=== PATIENT | female | born 1960 | race Caucasian/White ===

== ENCOUNTER → 2017-02-05 | Outpatient (CLI) | payer OTHER ==
[~2017-02-05] MED LIST: CPR/500 PO; NAPR1TAB9 PO
--- NOTE | 2017-02-05 10:17 | DIAGNOSTIC IMAGING REPORT ---
RIGHT HAND MIN 3 VIEWS ROUTINE CLINICAL HISTORY: Chronic right hand pain COMPARISON: None. DISCUSSION: The bones are osteopenic. No acute fractures are visualized. There are no erosive or destructive changes. IMPRESSION: Osteopenia. No fractures identified. Electronically signed by: Nadir Ku M.D. 02/05/2017 10:16 AM Dictated Date/Time: 02/05/2017 10:15 AM
== END | disposition home or self-care (01) ==
LOC: C.RAD1850 10:05
PROVIDERS: ATTEND Nurse Practitioner Family
DX: R22.31 Localized swelling, mass and lump, right upper limb (principal); M85.841 Other specified disorders of bone density and structure, right hand

== ENCOUNTER → 2017-05-31 | Outpatient (CLI) | payer OTHER ==
[~2017-05-31] MED LIST changes: -CPR/500 PO
== END | disposition home or self-care (01) ==
LOC: C.LABMFLN 08:56
PROVIDERS: ATTEND Family Medicine
DX: R10.30 Lower abdominal pain, unspecified (principal)

== ENCOUNTER 2017-06-05 19:51 | Emergency (ER) | payer OTHER ==
[~2017-06-05] VITALS: Ht 166.4 cm; Wt 57.2 kg
[~2017-06-05 19:51] MED LIST changes: -CPR/500 PO; -OPTIRAY 320 IV PRN
[2017-06-05 19:55] VITALS: Ht 166.4 cm; Wt 57.2 kg
[2017-06-05 21:08] LABS: BASO % 0.2 %; BASO ABS # 0.02 K/uL (0-0.2); COMPLETE YES; EOS % 0.4 %; HEMATOCRIT 38.3 % (37-47); IG% 0.3 %; LYMPH % 19.3 %; LYMPH ABS # 2.04 K/uL (1.2-3.4); MEAN CELL VOLUME 94.3 fL (80-100); MEAN CORPUSCULAR HEMOGLOBIN 32.5 pg (25-34); MEAN CORPUSCULAR HGB CONC 34.5 g/dl (32-36); MEAN PLATELET VOLUME 8.8 fL (7.4-10.4); MONO % 8.8 %; PLATELET COUNT 202 K/uL (130-400); RED BLOOD COUNT 4.06 M/uL (4.2-5.4); WHITE BLOOD COUNT 10.58 K/uL (4.8-10.8)
--- NOTE | 2017-06-05 21:09 | EMERGENCY ROOM VISIT NOTE ---
History Report prepared by Elian: Ai Mcdonald Under the Supervision of: Dr. Clarence Rivera M.D. First contact with patient: 20:29 Chief Complaint: GI ASSESSMENT Stated Complaint: ABD PAIN, INTESTING LEAKING INTO BLADDER Nursing Triage Summary: sent by PCP for +CT here today divertic with abcess, probable fistula History of Present Illness The patient is a 56 year old female who presents to the Emergency Room with complaints of persistent abdominal pain starting 2 weeks ago. She had a CT at her PCP today. She was sent to the ED after the CT showed diverticulitis with abscess. She was told that she might require surgery. She has had abdominal pain with urinating and fever over the past 2 weeks. She has a history of diverticulitis. Source of History: patient Onset: 2 weeks ago Position: abdomen Quality: other (pain) Timing: other (persistent) Associated Symptoms: + fevers Review of Systems See HPI for pertinent positives & negatives. A total of 10 systems reviewed and were otherwise negative. Past Medical & Surgical Medical Problems: (1) Diverticulitis (2) Diverticulosis (3) No Known Active Medical Problems Surgical Problems: (1) S/P tonsillectomy Family History Cancer Hypertension Social History Smoking Status: Former Smoker Alcohol Use: occasionally Marital Status: Housing Status: lives with significant other Occupation Status: employed Current/Historical Medications Scheduled Ciprofloxacin (Ciprofloxacin HCl), 500 MG PO BID Allergies Coded Allergies: No Known Allergies (Unverified , 02/19/16) Physical Exam Vital Signs Date Time Temp Pulse Resp B/P (MAP) Pulse Ox O2 Delivery O2 Flow Rate FiO2 06/05/17 23:29 06/05/17 23:29 06/05/17 22:51 36.9 81 18 101/70 96 Room Air 06/05/17 21:58 36.9 81 18 118/75 96 Room Air 06/05/17 20:59 81 06/05/17 20:58 36.9 77 18 122/77 98 Room Air 06/05/17 19:55 36.9 91 18 130/91 95 Room Air Physical Exam GENERAL: Patient is a healthy-appearing well-nourished female. HEAD: Normocephalic atraumatic EYES: Ocular movements intact pupils equal and react to light OROPHARYNX mucous membranes are moist no exudates present no erythema or edema present NECK: Supple no nuchal rigidity CHEST: Good equal expansion LUNGS: Clear and equal to auscultation CARDIAC: Normal S1 and S2 ABDOMEN: Soft nontender no guarding BACK: No CVA tenderness EXTREMITIES: No pain upon palpation normal muscle strength in all groups no clubbing cyanosis or edema NEURO: Patient is following commands and answering questions appropriately. Alert and oriented x3 Cranial Nerves 2-12 grossly intact Medical Decision & Procedures Laboratory Results 06/05/17 20:45 Red Blood Count 4.06, Mean Corpuscular Volume 94.3, Mean Corpuscular Hemoglobin 32.5, Mean Corpuscular Hemoglobin Concent 34.5, Mean Platelet Volume 8.8, Neutrophils (%) (Auto) 71.0, Lymphocytes (%) (Auto) 19.3, Monocytes (%) (Auto) 8.8, Eosinophils (%) (Auto) 0.4, Basophils (%) (Auto) 0.2, Neutrophils # (Auto) 7.52, Lymphocytes # (Auto) 2.04, Monocytes # (Auto) 0.93, Eosinophils # (Auto) 0.04, Basophils # (Auto) 0.02 06/05/17 20:45 Test 06/05/17 20:45 06/05/17 21:40 White Blood Count 10.58 K/uL (4.8-10.8) Red Blood Count 4.06 M/uL (4.2-5.4) Hemoglobin 13.2 g/dL (12.0-16.0) Hematocrit 38.3 % (37-47) Mean Corpuscular Volume 94.3 fL (80-100) Mean Corpuscular Hemoglobin 32.5 pg (25-34) Mean Corpuscular Hemoglobin Concent 34.5 g/dl (32-36) Platelet Count 202 K/uL (130-400) Mean Platelet Volume 8.8 fL (7.4-10.4) Neutrophils (%) (Auto) 71.0 % Lymphocytes (%) (Auto) 19.3 % Monocytes (%) (Auto) 8.8 % Eosinophils (%) (Auto) 0.4 % Basophils (%) (Auto) 0.2 % Neutrophils # (Auto) 7.52 K/uL (1.4-6.5) Lymphocytes # (Auto) 2.04 K/uL (1.2-3.4) Monocytes # (Auto) 0.93 K/uL (0.11-0.59) Eosinophils # (Auto) 0.04 K/uL (0-0.5) Basophils # (Auto) 0.02 K/uL (0-0.2) RDW Standard Deviation 41.3 fL (36.4-46.3) RDW Coefficient of Variation 12.0 % (11.5-14.5) Immature Granulocyte % (Auto) 0.3 % Immature Granulocyte # (Auto) 0.03 K/uL (0.00-0.02) Anion Gap 9.0 mmol/L (3-11) Est Creatinine Clear Calc Drug Dose 112.1 ml/min Estimated GFR () 124.5 Estimated GFR (Non- 107.4 BUN/Creatinine Ratio 10.6 (10-20) Calcium Level 9.2 mg/dl (8.5-10.1) Total Bilirubin 0.3 mg/dl (0.2-1) Direct Bilirubin 0.1 mg/dl (0-0.2) Aspartate Amino Transf (AST/SGOT) 26 U/L (15-37) Alanine Aminotransferase (ALT/SGPT) 28 U/L (12-78) Alkaline Phosphatase 45 U/L (45-117) Total Protein 7.2 gm/dl (6.4-8.2) Albumin 3.5 gm/dl (3.4-5.0) Lipase 118 U/L (73-393) Urine Color YELLOW Urine Appearance CLEAR (CLEAR) Urine pH 6.0 (4.5-7.5) Urine Specific [place] 1.014 (1.000-1.030) Urine Protein NEG (NEG) Urine Glucose (UA) NEG (NEG) Urine Ketones NEG (NEG) Urine Occult Blood 2+ (NEG) Urine Nitrite NEG (NEG) Urine Bilirubin NEG (NEG) Urine Urobilinogen NEG (NEG) Urine Leukocyte Esterase MODERATE (NEG) Urine WBC (Auto) /hpf (0-5) Urine RBC (Auto) /hpf (0-4) Urine Hyaline Casts (Auto) /lpf (0-5) Urine Epithelial Cells (Auto) /lpf (0-5) Urine Bacteria (Auto) (NEG) Urine RBC 10-30 /hpf (0-4) Urine WBC >30 /hpf (0-5) Urine Epithelial Cells 0-5 /lpf (0-5) Urine Renal Epithelial Cells /lpf (0-5) Urine Bacteria NEG (NEG) Urine Hyaline Casts 0 /lpf (0-5) Labs reviewed by ED physician. Medications Administered Medications (Trade) Dose Ordered Sig/Eliseo Route Start Time Stop Time Status Last Admin Dose Admin Piperacillin Sod/ Tazobactam Sod (Zosyn Iv) 4.5 gm NOW STAT IV 06/05/17 21:11 06/05/17 21:13 DC 06/05/17 21:40 4.5 GM Daptomycin 360 mg/ Sodium Chloride 57.2 ml @ 100 mls/hr NOW STAT IV 06/05/17 21:11 06/05/17 21:45 DC 06/05/17 21:40 100 MLS/HR ED Course 2031: Past medical records reviewed. The patient was evaluated in room C2B. A complete history and physical examination was performed. 2033: I discussed the patient's case with Dr. Brush, [facility] general surgery. He recommends the patient be transferred to a tertiary care center. 2047: I reevaluated the patient. I discussed the results and treatment plan with her. She verbalized agreement of the plan. [place] [facility] [place]. 2108: I discussed the patient's case with Dr. Gonzalez, [facility] [place]. He has accepted the patient for transfer. 2110: Daptomycin 360 mg/Sodium Chloride 57.2 ml @ 100 mls/hr IV, Zosyn Iv 4.5 gm IV. Medical Decision Differential diagnosis: Etiologies such as appendicitis, diverticulitis, PUD, biliary pathology, UTI, pancreatitis, obstruction, mesenteric ischemia, aortic pathology, infections, inflammatory bowel disease, renal colic, as well as others were entertained. This is a 56-year-old female that presents to the emergency department after a CAT scan of the abdomen pelvis was concerning for an abscess. I did discuss the case with the on-call surgeon Dr. Brush who took the time to look through the patient's radiographs. He felt that the patient will be better served by interventional radiology service. I did discuss this with the patient and suggested that the patient be transferred to [place] based on her insurance. In addition [facility] is not taking patients. In the meantime an IV was established, the patient does have an elevation in her white blood count cell count. She was given Zosyn and daptomycin. I did discuss the case with Dr. Cross who is on-call in [place] who readily accepted the patient. The patient refused pain medication but she was given an IV fluid bolus as well as Reglan. Medication Reconcilliation Current Medication List: was personally reviewed by me Blood Pressure Screening Patient's blood pressure: Normal blood pressure Blood pressure disposition: Did not require urgent referral Consults Time Called: 2029 Consulting Physician: Dr. Brush, [facility] general surgery Returned Call: 2033 I discussed the patient's case with him. He recommends the patient be transferred to a tertiary care center. Additional Consults: Time Called: 2054 Consulted Physician: Dr. Gonzalez, [facility] [place] Returned Call: [phone] Additional Comments: I discussed the patient's case with him. He has accepted the patient for transfer. Impression Primary Impression: Diverticulitis of intestine with abscess Scribe Attestation The scribe's documentation has been prepared under my direction and personally reviewed by me in its entirety. I confirm that the note above accurately reflects all work, treatment, procedures, and medical decision making performed by me. Departure Information Dispostion Transfer Acute Care Facility Referrals No Doctor, Assigned (PCP) Patient Instructions My [facility] Problem Qualifiers Primary Impression: Diverticulitis of intestine with abscess Diverticulitis site: unspecified part of intestinal tract Diverticulitis bleeding: unspecified bleeding status Qualified Codes: K57.80 - Diverticulitis of intestine, part unspecified, with perforation and abscess without bleeding
[2017-06-05] MEDS ORDERED: DAPTOmycin IV 360 MG in SODIUM CHLORIDE 0.9% 50ML 50 ML IV STA (21:11)
[2017-06-05] MEDS ORDERED: PIPERACILLIN/TAZOBACTAM 4.5 GM/100ML D5W IV STA (21:11)
[2017-06-05 21:25] LABS: BUN/CREATININE RATIO 10.6 (10-20); CALCIUM 9.2 mg/dl (8.5-10.1); CREATININE 0.5 mg/dl (0.60-1.20); POTASSIUM 3.4 mmol/L (3.5-5.1)
[2017-06-05] MEDS ORDERED: CPR/500 PO (21:34)
[2017-06-05 21:58] LABS: URINE APPEARANCE CLEAR (CLEAR); URINE BILIRUBIN NEG (NEG); URINE COLOR YELLOW; URINE NITRITE NEG (NEG); URINE SPECIFIC GRAVITY 1.014 (1.000-1.030); UROBILINOGEN NEG (NEG)
[2017-06-05 21:59] LABS: MANUAL MICROSCOPIC REQUIRED? YES; REVIEW REQ? NO
[2017-06-05 22:07] LABS: URINE BACTERIA NEG (NEG); URINE HYALINE CAST 0 /lpf (0-5); URINE WBC >30 /hpf (0-5)
[2017-06-05 22:51] VITALS: BP_DIAS 70; PULSE 81; TEMP 36.9; O2SAT 96
== END 2017-06-05 23:29 | disposition short-term general hospital (02) ==
LOC: C.EDB 19:53 → C.EDC 23:29
DX: K57.80 Diverticulitis of intestine, part unspecified, with perforation and abscess without bleeding (principal); Z80.9 Family history of malignant neoplasm, unspecified; Z82.49 Family history of ischemic heart disease and other diseases of the circulatory system; Z87.891 Personal history of nicotine dependence

== ENCOUNTER → 2017-06-05 | Outpatient (CLI) | payer OTHER ==
[~2017-06-05] MED LIST changes: +CPR/500 PO; +OPTIRAY 320 IV PRN
--- NOTE | 2017-06-05 17:28 | DIAGNOSTIC IMAGING REPORT ---
ABD/PELVIS COMBO HISTORY: 56 years-old Female R31.29 Hematuria, [id number] microscopic hematuria. Initial exam COMPARISON: CT abdomen and pelvis 02/18/2015 TECHNIQUE: Multiple axial CT images of the abdomen and pelvis were obtained both with and without the use of 94 mL Optiray 320 utilizing hematuria gestational protocol with delayed images. A dose lowering technique was used consistent with the principals of MARCELA. FINDINGS: Lung bases are generally clear. Small right Bochdalek hernia. The imaged inferior cardiac chambers are unremarkable. There are multiple circumscribed low attenuating lesions throughout the liverr, largest of which measures up to 6.7 x 6.0 cm, slightly increased from comparison most compatible with cysts. The spleen, pancreas, gallbladder and right adrenal gland are unremarkable. There is mild nodularity of the left adrenal gland which is unchanged suggesting hyperplasia. Multiple low attenuating lesions of the bilateral kidneys are again seen, most of which are too small to characterize however suggesting cysts which appears similar from comparison study dated 02/18/2015. There is a 4 mm hyperattenuating focus of the interpolar right kidney seen on image 114 of series 3 suggesting a nonobstructing calculus or less likely complexity within a pre-existing renal cyst. Additionally, there is a punctate hyperattenuating focus of the interpolar right kidney seen on image 117 of series 3 which may reflect additional complex cyst or may be artifact. There is a 3 mm nonobstructing calculus of the interpolar left kidney seen on image 122 of series 3. No ureteral calculi or hydronephrosis. Ureters are normal in caliber. There is moderate irregular circumferential wall thickening of the urinary bladder with air noted involving the nondependent urinary bladder lumen. Asymmetric wall thickening near the base of the urinary bladder is noted with irregular enhancement within this distribution. Bilateral collecting systems appear to be within normal limits without focal ureteral or calyceal filling defect. Soft tissue thickening as described below at the base of the left urinary bladder is noted with contrast from the left ureter not definitely emptying within the urinary bladder. There is decreased opacification of the distal left ureter without dilation. There is moderate inflammatory changes with trace free fluid within the pelvis. Marked wall thickening of the mid sigmoid colon is noted with an apparent fluid and air-filled tract extending from the sigmoid colon into the left base of the urinary bladder as seen on images 302 through 336 of series 5 suggesting colovesicular fistula. Additionally, there is a collection along the antimesenteric aspect of the sigmoid colon, 5.6 x 1.8 cm on image 298 of series 5 without lobulated margins suggesting a pericolonic abscess adjacent to the mid sigmoid colon. Colonic diverticula are seen within this distribution. The appendix appears normal. The uterus is unremarkable. Soft tissues are unremarkable. Facet arthropathy is seen within the lower lumbar spine. There is mild convex left curvature of the lumbar spine. IMPRESSION: 1. Extensive inflammatory changes within the pelvis as above with findings suggesting acute diverticulitis with ill-defined pericolonic abscess and colovesicular fistula as above. Surgical consultation recommended. 2. Irregular wall thickening and enhancement involving the left base of the urinary bladder as above is likely secondary to colovesicular fistula. Further evaluation with cystoscopy may be considered. 3. Normal appendix. 4. No bowel obstruction. 5. Multiple hepatic and renal cysts redemonstrated. 6. Bilateral nephrolithiasis without hydronephrosis. The above report was generated using voice recognition software. It may contain grammatical, syntax or spelling errors. Electronically signed by: Chuck Lewis M.D. 06/05/2017 5:27 PM Dictated Date/Time: 06/05/2017 5:09 PM
== END | disposition home or self-care (01) ==
LOC: C.CTS 15:51
PROVIDERS: ATTEND Family Medicine
DX: R31.29 Other microscopic hematuria (principal)

== ENCOUNTER → 2017-06-27 | Outpatient (CLI) | payer OTHER ==
[~2017-06-27] MED LIST changes: +CPR/500 PO; -NAPR1TAB9 PO
== END | disposition home or self-care (01) ==
LOC: C.MAMM 13:51
PROVIDERS: ATTEND Family Medicine
DX: M85.88 Other specified disorders of bone density and structure, other site (principal); M85.851 Other specified disorders of bone density and structure, right thigh; M85.852 Other specified disorders of bone density and structure, left thigh

== ENCOUNTER → 2017-11-12 | Outpatient (CLI) | payer OTHER ==
--- NOTE | 2017-11-12 17:39 | DIAGNOSTIC IMAGING REPORT ---
LUMBAR SPINE 5 VIEWS HISTORY: LUMBOSACRAL PAIN THAT RADIATES COMPARISON: None. FINDINGS: There is no fracture. No subluxation. Minimal levoscoliosis. Suture material at the rectosigmoid junction. The sacrum appears intact. Mild to moderate facet degenerative changes seen within the lower lumbar spine. 3 mm of anterolisthesis of L4 and L5. Mild disc space narrowing at L4-L5. Moderate to space narrowing at L5-S1 with small endplate osteophytes at these levels. IMPRESSION: 1. No fractures within the lumbar spine. 2. Mild to moderate degenerative changes within the lower lumbar spine as described above. 3. Minimal levoscoliosis. 4. Grade I anterolisthesis of L4 on L5. This is likely due to the long-standing degenerative change. Electronically signed by: Prashanth Noriega M.D. 11/12/2017 5:38 PM Dictated Date/Time: 11/12/2017 5:36 PM
== END | disposition home or self-care (01) ==
LOC: C.RADPV 15:56
PROVIDERS: ATTEND Chiropractor
DX: M54.5 Low back pain (principal); M51.36 Other intervertebral disc degeneration, lumbar region; M47.816 Spondylosis without myelopathy or radiculopathy, lumbar region; M43.16 Spondylolisthesis, lumbar region

== ENCOUNTER → 2017-11-15 | Outpatient (CLI) | payer OTHER ==
--- NOTE | 2017-11-15 11:23 | DIAGNOSTIC IMAGING REPORT ---
MRI OF THE LUMBAR SPINE WITHOUT CONTRAST CLINICAL HISTORY: Left lumbar radiculopathy. COMPARISON STUDY: Lumbar spine radiograph November 13, 2007. TECHNIQUE: Utilizing a 1.5 Aiyana magnet and dedicated coil, multiplanar, multiecho imaging of the lumbar spine was performed without IV contrast. FINDINGS: There is 4 mm anterolisthesis of L4 and L5 due to severe facet arthrosis at this level, greater on the left. A few hemangiomas are noted. There is no suspicious marrow replacement. Conus terminates at the upper L1 level. Paravertebral soft tissues are unremarkable. Note is made of innumerable renal cysts as well as multiple hepatic cysts, better depicted on CT of June 05, 2017. There is moderate disc space narrowing at L5-S1 and mild to moderate disc space narrowing at L4-L5. L1-2: The central canal and neural foramen are patent. L2-3: The central canal and neural foramen are patent. L3-4: There is mild disc bulge. There is mild facet arthrosis. Central canal and neural foramen are patent. L4-5: Grade I anterolisthesis. There is severe facet arthrosis. Central canal is patent. Note is made of a 1 x 0.9 cm T2 hyperintense abnormality within the left neural foramen which likely communicates with the left L4-L5 facet joint. This suggests a synovial cyst with mass effect upon the exiting left L4 nerve root. The right neural foramen is mildly narrowed. L5-S1: There is disc space narrowing. There is a disc bulge. Moderate facet arthrosis is noted. Central canal is patent. Note is made of a left lateral disc osteophyte complex with moderate to severe narrowing of the distal left neural foramen. IMPRESSION: 1. 1 cm T2 hyperintense abnormality within the left neural foramen L4-L5 which favors a synovial cyst with mass effect upon the left L4 nerve root. This could be correlated with left L4 radiculopathy. Severe facet arthrosis at this level, greater on the left. 2. Disc bulge with a left far lateral disc osteophyte complex at L5-S1 with moderate to severe narrowing of the distal left neural foramen. 3. No significant central canal stenosis. 4. Grade I anterolisthesis of L4 and L5 likely due to severe facet arthrosis. Electronically signed by: Jose Alejandro Queen M.D. 11/15/2017 11:22 AM Dictated Date/Time: 11/15/2017 11:08 AM
== END | disposition home or self-care (01) ==
LOC: C.MRI 09:50
PROVIDERS: ATTEND Family Medicine
DX: M51.16 Intervertebral disc disorders with radiculopathy, lumbar region (principal); M25.78 Osteophyte, vertebrae

== ENCOUNTER → 2017-12-11 | Outpatient (CLI) | payer OTHER ==
[~2017-12-11] MED LIST changes: -CPR/500 PO; +GABA-112 PO
== END | disposition home or self-care (01) ==
LOC: C.LABMFLN 15:39
PROVIDERS: ATTEND Family Medicine
DX: M25.50 Pain in unspecified joint (principal)

== ENCOUNTER 2021-10-16 07:42 | Inpatient (IN) ==
[2021-10-16] MEDS ORDERED: SODIUM CHLORIDE 0.9% 1000ML 1,000 ML IV STA (07:56)
--- NOTE | 2021-10-16 07:56 | Emergency Department Note ---
History of Present Illness General Chief complaint: Abdominal Pain Stated complaint: SEVERE ABD PAIN GOING INTO LT SIDE Time Seen by Provider: 10/16/21 07:53 Source: patient Mode of arrival: ambulatory Limitations: no limitations History of Present Illness Maximum Pain Intensity: 8 This patient is a 61-year-old female comes in with abdominal pain. She has had a significant work-up recently including MRI of her abdomen. There was mild ductal dilatation with abrupt cut off so she did have an ERCP done by Dr. Yaritza Laboy on 08-31-21 as stents placed at the time. Tissues were obtained did not show any malignancy. He has been having abdominal pain for a month or so it gets worse in the mid day typically. She did eat macaroni and cheese yesterday. Got worse last night. She says is mostly on the left side. She does not have a history of diverticulitis as well. She had no fever she may have had some chi lls at some point. She has had Covid vaccine as well as the booster. No exposure known. She has nausea and vomited about 3-4 times she says she feels dry. No blood or coffee grounds in her emesis. She says it does radiate up into her central chest but she has been having that for months as well. No radiation to the back. No cough or shortness of breath fall or trauma. No blood in her stool. Home Medications Medication Instructions Recorded Confirmed Type acetaminophen 500 mg tablet 1,000 mg PO Q6H PRN 08/08/19 10/16/21 History (Tylenol Extra Strength) cholecalciferol (vitamin D3) 25 1,000 unit PO QAM 08/08/19 10/16/21 History mcg (1,000 unit) capsule (Vitamin D3) lactobacillus combination no.4 3 3,000 mmu cells PO QAM 08/08/19 10/16/21 History billion cell capsule (Probiotic) multivitamin 1 tab PO PM 08/08/19 10/16/21 History thiamine HCl (vitamin B1) 100 mg 100 mg PO DAILY #30 tab 08/11/19 10/16/21 Rx tablet Allergies Allergy/AdvReac Type Severity Reaction Status Date / Time No Known Allergies Allergy Verified 10/16/21 08:11 Past Med/Surg History Medical History Abdominal lump Chronic low back pain Diverticulosis H/O diverticulitis of colon Lumbar radiculopathy Osteopenia Ovarian cyst, left Peroneal neuropathy White coat syndrome with high blood pressure but without hypertension Surgical History History of low anterior resection of rectum S/P colonoscopy January 2013 repeat 10yrs Family History Other Cancer No pertinent family history Denies family history of Ovarian cancer Prostate cancer Myocardial infarction Breast cancer Colorectal cancer Social History Smoking Status: Former smoker Tobacco Type: Cigarettes packs per day: 0.25; Years Smoked: 8; Hx Alcohol Use: Yes Alcohol type: beer and wine Preferred Language: Tongan marital status: Current Living Situation: Spouse Feels Safe at Home: Yes during the past year weight has: remained stable Review of Systems A total of 10 systems reviewed and were otherwise negative Physical Exam Vital Signs Vital Signs - 24 hr 10/16/21 07:50 10/16/21 08:34 10/16/21 10:00 Temperature 36.9 C 37 C Temperature Source Temporal Artery Scan Oral Pulse Rate 91 H Pulse Rate [Apical] 87 Respiratory Rate 18 18 Blood Pressure 136/97 Blood Pressure [Left Arm] 172/104 H Blood Pressure Mean 110 Blood Pressure Mean [Left Arm] 126 Pulse Oximetry 97 99 Oxygen Delivery Method Room Air Room Air Room Air Sepsis Recent Fever Within 48 Hours No Sepsis New/Unexplained Change in Mental Status No Sepsis Action Taken by Nursing No Action Required 10/16/21 14:00 Temperature Temperature Source Pulse Rate Pulse Rate [Apical] 78 Respiratory Rate 18 Blood Pressure Blood Pressure [Left Arm] 136/84 Blood Pressure Mean Blood Pressure Mean [Left Arm] 101 Pulse Oximetry 96 Oxygen Delivery Method Room Air Sepsis Recent Fever Within 48 Hours Sepsis New/Unexplained Change in Mental Status Sepsis Action Taken by Nursing General: Well developed well nourished uncomfortable appearing middle-aged female who appears in no acute distress, breathing comfortably on room air. Normal speech HEENT: Normal cephalic atraumatic. Pupils are equal round and reactive to light. Extraocular movements are intact. Oropharynx is pink with moist mucous membranes. No swelling of the mouth lips or tongue. Neck: Supple with a midline trachea. No meningeal signs or stiffness, no JVD or bruits. No Stridor. Chest: Clear to auscultation bilaterally. No wheezes or rhonchi. No increased work of breathing. Heart: Regular rate and rhythm without murmurs or gallops. Abdomen: Soft, moderately tender in the abdomen mostly on the left upper abdome, nondistended without rebound guarding or rigidity. No peritonitis. There is a small umbilical hernia which is not tender or red or warm and is easily reducible Extremities: No cyanosis clubbing or edema. No calf tenderness or assymetry Spine/Back. Non tender to palpation. No CVA tenderness Skin: Good turgor without rashes. Neurologic exam: Cranial nerves two through 12 are intact. Motor and sensation are intact and symmetrical throughout. Course Administered Medications Discontinued Medications Hydromorphone HCl (Hydromorphone Inj 0.5 Mg/0.5 Ml Syr) 0.5 mg IV NOW STA Stop: 10/16/21 11:17 Last Admin: 10/16/21 11:33 Dose: 0.5 mg Documented by: [id number] Sodium Chloride (Nss 1000ml) 1,000 mls @ 999 mls/hr IV .Q1H1M STA Stop: 10/16/21 08:56 Last Infusion: 10/16/21 09:30 Dose: 0 mls/hr Documented by: [id number] Admin: 10/16/21 08:29 Dose: 999 mls/hr Documented by: [id number] Sodium Chloride (Nss 1000ml) 1,000 mls @ 999 mls/hr IV .Q1H1M ONE Stop: 10/16/21 10:58 Last Infusion: 10/16/21 11:19 Dose: 0 mls/hr Documented by: [id number] Admin: 10/16/21 10:18 Dose: 999 mls/hr Documented by: [id number] Ioversol (Optiray 320 100ml) 94 ml IV ONCE ONE Stop: 10/16/21 09:16 Last Admin: 10/16/21 09:15 Dose: 94 ml Documented by: [id number] Ketorolac Tromethamine (Ketorolac Tromethamine 15 Mg/Ml Vial) 10 mg IV NOW ONE Stop: 10/16/21 08:04 Last Admin: 10/16/21 08:29 Dose: 10 mg Documented by: [id number] Morphine Sulfate (Morphine Sulfate 2 Mg/Ml Carp) 2 mg IV NOW STA Stop: 10/16/21 09:59 Last Admin: 10/16/21 10:18 Dose: 2 mg Documented by: [id number] Ondansetron HCl (Ondansetron Inj 2 Mg/Ml 2 Ml Vial) 4 mg IV NOW STA Stop: 10/16/21 08:04 Last Admin: 10/16/21 08:29 Dose: 4 mg Documented by: [id number] Ondansetron HCl (Ondansetron Inj 2 Mg/Ml 2 Ml Vial) 4 mg IV NOW STA Stop: 10/16/21 09:59 Last Admin: 10/16/21 10:18 Dose: 4 mg Documented by: [id number] Medical Decision Making Differential Diagnosis Infection, biliary duct pathology/stent obstruction, pancreatitis, gallbladder disease, cardiac disease, bowel obstruction, UTI, diverticulitis, GERD Medical Records Attestation: I reviewed the patient's medical records. Home Medications Current Medication List: was personally reviewed by me Laboratory Data Attestation: I reviewed the patient's lab results. Result diagrams: 10/16/21 08:21 10/16/21 08:21 Lab Results 10/16/21 10/16/21 10/16/21 Range/Units 08:21 08:21 10:34 WBC 11.50 H (4.8-10.8) K/uL RBC 4.28 (4.2-5.4) M/uL Hgb 14.7 (12.0-16.0) g/dL Hct 42.6 (37-47) % MCV 99.5 (80-100) fL MCH 34.3 H (25-34) pg MCHC 34.5 (32-36) g/dL RDW Std Deviation 45.0 (36.4-46.3) fL RDW Coeff of Philip 12.4 (11.5-14.5) % Plt Count 180 (130-400) K/uL MPV 9.6 (7.4-10.4) fL Immature Gran % (Auto) 0.2 % Neut % (Auto) 90.7 % Lymph % (Auto) 4.3 % Coal % (Auto) 4.7 % Eos % (Auto) 0.0 % Baso % (Auto) 0.1 % Neut # (Auto) 10.44 H (1.4-6.5) K/uL Lymph # (Auto) 0.49 L (1.2-3.4) K/uL Coal # (Auto) 0.54 (0.11-0.59) K/uL Eos # (Auto) 0.00 (0-0.5) K/uL Baso # (Auto) 0.01 (0-0.2) K/uL Immature Gran # (Auto) 0.02 (0.00-0.02) K/uL Sodium 144 (136-145) mmol/L Potassium 3.5 (3.5-5.1) mmol/L Chloride 104 (98-107) mmol/L Carbon Dioxide 25 (21-32) mmol/L Anion Gap 15 H (3-11) BUN 12 (6-23) mg/dl Creatinine 0.42 L (0.6-1.2) mg/dl Est Cr Clr Drug Dosing 116.2 ml/min Est GFR ( Amer) 127.3 ml/min Est GFR (Non-Af Amer) 109.9 ml/min BUN/Creatinine Ratio 28.6 H (10-20) Glucose 144 H (70-99(Fasting)) mg/dl Calcium 9.2 (8.5-10.1) mg/dl Total Bilirubin 0.8 (0.2-1.0) mg/dl AST 25 (13-39) U/L ALT 17 (7-52) U/L Alkaline Phosphatase 45 (34-104) U/L Troponin I < 0.03 (0-0.04) ng/ml Total Protein 6.8 (6.0-8.3) gm/dl Albumin 4.5 (3.4-5.0) gm/dl Globulin 2.3 L (2.5-4.0) gm/dl Albumin/Globulin Ratio 2.0 (0.9-2) Lipase 2575 H (11-82) U/L Urine Color Yellow Urine Appearance Clear (Clear) Urine pH 6.5 (4.5-7.5) Ur Specific [place] > 1.045 H (1.000-1.030) Urine Protein Negative (Negative) Urine Glucose (UA) Negative (Negative) Urine Ketones 2+ H (Negative) Urine Blood Negative (Negative) Urine Nitrite Negative (Negative) Urine Bilirubin Negative (Negative) Urine Urobilinogen Negative (Negative) Ur Leukocyte Esterase Negative (Negative) SARS-CoV-2, RNA, NAAT (NEGATIVE) 10/16/21 Range/Units 12:30 WBC (4.8-10.8) K/uL RBC (4.2-5.4) M/uL Hgb (12.0-16.0) g/dL Hct (37-47) % MCV (80-100) fL MCH (25-34) pg MCHC (32-36) g/dL RDW Std Deviation (36.4-46.3) fL RDW Coeff of Philip (11.5-14.5) % Plt Count (130-400) K/uL MPV (7.4-10.4) fL Immature Gran % (Auto) % Neut % (Auto) % Lymph % (Auto) % Coal % (Auto) % Eos % (Auto) % Baso % (Auto) % Neut # (Auto) (1.4-6.5) K/uL Lymph # (Auto) (1.2-3.4) K/uL Coal # (Auto) (0.11-0.59) K/uL Eos # (Auto) (0-0.5) K/uL Baso # (Auto) (0-0.2) K/uL Immature Gran # (Auto) (0.00-0.02) K/uL Sodium (136-145) mmol/L Potassium (3.5-5.1) mmol/L Chloride (98-107) mmol/L Carbon Dioxide (21-32) mmol/L Anion Gap (3-11) BUN (6-23) mg/dl Creatinine (0.6-1.2) mg/dl Est Cr Clr Drug Dosing ml/min Est GFR ( Amer) ml/min Est GFR (Non-Af Amer) ml/min BUN/Creatinine Ratio (10-20) Glucose (70-99(Fasting)) mg/dl Calcium (8.5-10.1) mg/dl Total Bilirubin (0.2-1.0) mg/dl AST (13-39) U/L ALT (7-52) U/L Alkaline Phosphatase (34-104) U/L Troponin I (0-0.04) ng/ml Total Protein (6.0-8.3) gm/dl Albumin (3.4-5.0) gm/dl Globulin (2.5-4.0) gm/dl Albumin/Globulin Ratio (0.9-2) Lipase (11-82) U/L Urine Color Urine Appearance (Clear) Urine pH (4.5-7.5) Ur Specific [place] (1.000-1.030) Urine Protein (Negative) Urine Glucose (UA) (Negative) Urine Ketones (Negative) Urine Blood (Negative) Urine Nitrite (Negative) Urine Bilirubin (Negative) Urine Urobilinogen (Negative) Ur Leukocyte Esterase (Negative) SARS-CoV-2, RNA, NAAT NEGATIVE (NEGATIVE) Imaging Data Radiologist's Impression: Abdomen/Pelvis CT 10/16/21 08:03 CT SCAN OF THE ABDOMEN AND PELVIS WITH IV CONTRAST CLINICAL HISTORY: Generalized abdominal pain. Biliary stent. COMPARISON STUDY: Abdominal CT dated 06/05/2017. TECHNIQUE: Following the IV administration of 94 cc of Optiray 320, CT scan of the abdomen and pelvis is performed from the lung bases to the proximal femora. Images are reviewed in the axial, sagittal, and coronal planes. IV contrast was administered without complication. A dose lowering technique was utilized adhering to the principles of ALARA. CT DOSE: 263.59 mGy.cm FINDINGS: Lung bases: The heart is top normal in size and without pericardial effusion. The lung bases are clear noting dependent atelectasis. There is a small hiatal hernia. Liver: The contrast-enhanced liver is normal in size and contour. The liver demonstrates diffusely diminished attenuation indicating steatosis. There is minimal central intrahepatic biliary ductal dilatation. The hepatic veins and portal veins are patent. There are numerous hepatic cysts which measure up to 5 cm. Gallbladder: The gallbladder is distended but otherwise normal in appearance. A stent is in place from the mid common bile duct to the duodenum. The common bile duct is dilated measuring 1.2 cm in diameter. Spleen: Normal in size and attenuation. Pancreas: The pancreas appears edematous. Significant infiltration and fluid seen around the pancreatic body and tail, typical for acute pancreatitis. The gland enhances throughout. The duct is normal in caliber. No organized peripancreatic fluid collection is seen. The splenic vein is patent. Adrenal glands: Unremarkable. Kidneys: The contrast enhanced kidneys are normal in size and without hydro nephrosis. The kidneys enhance symmetrically. There are numerous subcentimeter cortical hypodensities. These likely represent cysts but are too small for definitive characterization. Left-sided perinephric fluid is likely related to adjacent pancreatitis. Abdominal vasculature: The abdominal aorta is normal in course and caliber noting mild atherosclerotic calcification. Bowel: There is postoperative change from sigmoid colon resection with col ocolonic anastomosis. No bowel obstruction is seen. There is moderate diverticulosis of the remaining colon without CT evidence of acute diverticulitis. A small bowel anastomosis is seen in the right lower quadrant. The appendix is normal as visualized. Peritoneum: There is no intraperitoneal free air. There is trace perisplenic ascites as well as a small volume of pelvic ascites. There are large fat- containing umbilical and supraumbilical hernias. Lymphadenopathy: None. Pelvic viscera: The bladder is mildly distended and appears circumferentially thick walled. The uterus is heterogeneous and fibroids are suspected. No adnexal lesion is seen. Numerous phleboliths are observed in the pelvis. Skeletal structures: The skeletal structures are osteopenic. There is mild lumbosacral spondylosis. There is a mild chronic appearing superior endplate compression deformity of L2. No lytic or blastic lesions are seen. There are chronic/healed right-sided rib fractures. IMPRESSION: 1. Findings are typical for acute pancreatitis. Correlate with clinical findings and serum amylase/lipase levels. 2. The gland enhances throughout and there is no organized peripancreatic fluid collection identified. 3. A common bile duct stent is in place. The common bile duct is dilated sweta uring up to 12 mm diameter. There is only minimal central intrahepatic biliary ductal dilatation. 4. The gallbladder is distended but otherwise normal in appearance. 5. Hepatic steatosis. 6. Small volume ascites. 7. The bladder wall appears circumferentially thickened. Correlate with clinical findings and urinalysis. 8. Diverticulosis of the remaining colon without CT evidence of acute diverticulitis. 9. Additional findings as above. ACT 112: Negative or not required by law. Electronically signed by: Oh Betancur M.D. 10/16/2021 9:33 AM ECG Data Attestation: I personally reviewed and interpreted this ECG as follows: Indication: + abdominal pain Rate (beats per minute): 72 Rhythm: + normal sinus ECG Intervals/blocks: + Normal QRS, + Normal QT and + Normal MO ECG [place]: + Normal ECG ST segments: + Normal ST segments ECG Findings: no PACs or no PVCs MDM Narrative This patient comes in described above. She was placed on a cardiac surgeon in room C7. I reviewed her old records. She had a recent work-up for biliary ducts stenosis she has been stented. IV access was established and she was hydrated with a 1 L IV normal saline bolus. She was given Toradol 10 mg IV for pain management and Zofran 4 mg IV for nausea management. Multiple blood testing was obtained I did order CT initially to evaluate potential etiology such as diverticulitis and other potential etiologies for her pain. She says s he is had CAT scans before without any difficulties. She was kept n.p.o. EKG does not suggest acute coronary syndrome or arrhythmia. White count mildly elevated at 11 but she is afebrile. She has a normal hemoglobin. Her liver functions were not significantly elevated her lipase is however elevated at over 2000 consistent with pancreatitis her CAT scan shows pancreatitis without any fluid collection. I did consult the [facility] GI hospitalist to see her in the ER. She will be admitted for further treatment and evaluation and bowel rest. She did receive IV morphine as well as IV fluids. I have discussed the case with both the patient and her significant other who is at the bedside. Continuous cardiac monitoring: An order was placed in EMR for continuous cardiac monitoring. Upon my interpretation she was noted to be in normal sinus rhythm rate of 75 Impression & Plan Acute pancreatitis, Abdominal pain, Status post endoscopic retrograde cholangiopancreatography, Lab test negative for COVID-19 virus, Nausea Discharge Plan Visit Data Chief Complaint: Abdominal Pain Stated Complaint: SEVERE ABD PAIN GOING INTO LT SIDE ED Provider: Joey Benson Discharge Problem: Acute pancreatitis, Abdominal pain, Status post endoscopic retrograde cholangiopancreatography, Lab test negative for COVID-19 virus, Nausea Forms Stand Alone Forms: My [facility] [place] Prescriptions Prescriptions: No Action thiamine HCl (vitamin B1) 100 mg tablet 100 mg PO DAILY Qty: 30 RF: 0 acetaminophen [Tylenol Extra Strength] 500 mg Tablet 1,000 mg PO Q6H PRN (Reason: Pain) RF: 0 multivitamin Tablet 1 tab PO PM RF: 0 cholecalciferol (vitamin D3) [Vitamin D3] 25 mcg (1,000 unit) Capsule 1,000 unit PO QAM RF: 0 Probiotic 3 billion cell Capsule 3,000 mmu cells PO QAM RF: 0 Referrals Referrals: Teagan Deshpande MD [Primary Care Provider] - Discharge Problem: Acute pancreatitis Qualifiers: Pancreatitis type: unspecified pancreatitis type Acute pancreatitis complication: unspecified Qualified Code(s): K85.90 - Acute pancreatitis without necrosis or infection, unspecified Abdominal pain Qualifiers: Abdominal location: epigastric Qualified Code(s): R10.13 - Epigastric pain
[2021-10-16] MEDS ORDERED: ONDANSETRON INJ 2 MG/ML 2 ML VIAL IV STA ×2 (08:03→09:58)
[2021-10-16] MEDS ORDERED: KETOROLAC TROMETHAMINE 15 MG/ML VIAL IV ONE (08:03)
[2021-10-16 08:39] LABS: Basophils # (auto) 0.01 K/uL (0-0.2); Basophils % (auto) 0.1 %; Hematocrit (blood only) 42.6 % (37-47); Hemoglobin 14.7 g/dL (12.0-16.0); Immature Granulocytes # (auto) 0.02 K/uL (0.00-0.02); Immature Granulocytes % (auto) 0.2 %; Lymphocytes # (auto) 0.49 K/uL (1.2-3.4); Lymphocytes % (auto) 4.3 %; Mean Corpuscular Hemoglobin 34.3 pg (25-34); Mean Corpuscular Hgb Conc 34.5 g/dL (32-36); Mean Corpuscular Volume 99.5 fL (80-100); Mean Platelet Volume 9.6 fL (7.4-10.4); Monocytes # (auto) 0.54 K/uL (0.11-0.59); Monocytes % (auto) 4.7 %; Neutrophils # (auto) 10.44 K/uL (1.4-6.5); Neutrophils % (auto) 90.7 %; Platelet Count 180 K/uL (130-400); RDW Coefficient of Variation 12.4 % (11.5-14.5); Red Blood Count 4.28 M/uL (4.2-5.4)
[2021-10-16 08:54] LABS: Troponin I < 0.03 ng/ml (0-0.04)
[2021-10-16 09:02] LABS: Alanine Aminotransferase 17 U/L (7-52); Albumin Level 4.5 gm/dl (3.4-5.0); Alkaline Phosphatase 45 U/L (34-104); Anion Gap 15 (3-11); Aspartate Aminotransferase 25 U/L (13-39); BUN Creatinine Ratio 28.6 (10-20); Bilirubin,Total 0.8 mg/dl (0.2-1.0); Blood Urea Nitrogen 12 mg/dl (6-23); Calcium 9.2 mg/dl (8.5-10.1); Carbon Dioxide 25 mmol/L (21-32); Chloride 104 mmol/L (98-107); Creatinine Clr Calc Pharmacy 116.2 ml/min; Est GFR (African American) 127.3 ml/min; Est GFR (Non-African American) 109.9 ml/min; Globulin 2.3 gm/dl (2.5-4.0); Glucose 144 mg/dl (70-99(Fasting)); Potassium 3.5 mmol/L (3.5-5.1); Sodium 144 mmol/L (136-145); Total Protein 6.8 gm/dl (6.0-8.3)
[2021-10-16] MEDS ORDERED: OPTIRAY 320 100ml IV ONE (09:15)
[2021-10-16 09:17] LABS: Lipase 2575 U/L (11-82)
--- NOTE | 2021-10-16 09:34 | CT Scan Report ---
CT SCAN OF THE ABDOMEN AND PELVIS WITH IV CONTRAST CLINICAL HISTORY: Generalized abdominal pain. Biliary stent. COMPARISON STUDY: Abdominal CT dated 06/05/2017. TECHNIQUE: Following the IV administration of 94 cc of Optiray 320, CT scan of the abdomen and pelvi s is performed from the lung bases to the proximal femora. Images are reviewed in the axial, sagittal , and coronal planes. IV contrast was administered without complication. A dose lowering technique wa s utilized adhering to the principles of ALARA. CT DOSE: 263.59 mGy.cm FINDINGS: Lung bases: The heart is top normal in size and without pericardial effusion. The lung bases are daniel r noting dependent atelectasis. There is a small hiatal hernia. Liver: The contrast-enhanced liver is normal in size and contour. The liver demonstrates diffusely di minished attenuation indicating steatosis. There is minimal central intrahepatic biliary ductal dilat ation. The hepatic veins and portal veins are patent. There are numerous hepatic cysts which measure up to 5 cm. Gallbladder: The gallbladder is distended but otherwise normal in appearance. A stent is in place fro m the mid common bile duct to the duodenum. The common bile duct is dilated measuring 1.[address] Spleen: Normal in size and attenuation. Pancreas: The pancreas appears edematous. Significant infiltration and fluid seen around the pancreat ic body and tail, typical for acute pancreatitis. The gland enhances throughout. The duct is normal i n caliber. No organized peripancreatic fluid collection is seen. The splenic vein is patent. Adrenal glands: Unremarkable. Kidneys: The contrast enhanced kidneys are normal in size and without hydronephrosis. The kidneys enh ance symmetrically. There are numerous subcentimeter cortical hypodensities. These likely represent c ysts but are too small for definitive characterization. Left-sided perinephric fluid is likely relate d to adjacent pancreatitis. Abdominal vasculature: The abdominal aorta is normal in course and caliber noting mild atheroscleroti c calcification. Bowel: There is postoperative change from sigmoid colon resection with colocolonic anastomosis. No iris wel obstruction is seen. There is moderate diverticulosis of the remaining colon without CT evidence of acute diverticulitis. A small bowel anastomosis is seen in the right lower quadrant. The appendix is normal as visualized. Peritoneum: There is no intraperitoneal free air. There is trace perisplenic ascites as well as a sma ll volume of pelvic ascites. There are large fat-containing umbilical and supraumbilical hernias. Lymphadenopathy: None. Pelvic viscera: The bladder is mildly distended and appears circumferentially thick walled. The uteru s is heterogeneous and fibroids are suspected. No adnexal lesion is seen. Numerous phleboliths are ob served in the pelvis. Skeletal structures: The skeletal structures are osteopenic. There is mild lumbosacral spondylosis. T here is a mild chronic appearing superior endplate compression deformity of L2. No lytic or blastic l esions are seen. There are chronic/healed right-sided rib fractures. IMPRESSION: 1. Findings are typical for acute pancreatitis. Correlate with clinical findings and serum amylase/li pase levels. 2. The gland enhances throughout and there is no organized peripancreatic fluid collection identified . 3. A common bile duct stent is in place. The common bile duct is dilated measuring up to 12 mm diamet er. There is only minimal central intrahepatic biliary ductal dilatation. 4. The gallbladder is distended but otherwise normal in appearance. 5. Hepatic steatosis. 6. Small volume ascites. 7. The bladder wall appears circumferentially thickened. Correlate with clinical findings and urinaly sis. 8. Diverticulosis of the remaining colon without CT evidence of acute diverticulitis. 9. Additional findings as above. ACT 112: Negative or not required by law. Electronically signed by: Oh Betancur M.D. 10/16/2021 9:33 AM
[2021-10-16] MEDS ORDERED: MoRPHine SULFATE 2 MG/ML CARP IV STA (09:58)
[2021-10-16] MEDS ORDERED: SODIUM CHLORIDE 0.9% 1000ML 1,000 ML IV ONE (09:58)
--- NOTE | 2021-10-16 10:19 | Gastrointestinal Consultation ---
Date of Consultation October 16, 2021 Assessment & Plan (1) RUQ abdominal pain: 61 year old female admitted w/ abd pain, imaging and labs concerning for acute pancreatitis recent EGD/EUS/ERCP reviewed. Is scheduled for ERCP as OP in October for stent removal Given normal LFTs, no plan for acute ERCP Keep OP ERCP as scheduled NPO LR 200 mL/hr Antiemetics PRN Analgesia PRN Recommend ETOH cessation Supervising Physician Co-Signing Physician Notes I saw and evaluated the patient in the emergency room. We were consulted for abdominal pain and elevated lipase levels. The patient does have a history of a possible pancreatic mass and underwent a recent endoscopic ultrasound with one of my partners. This was followed by ERCP during which time he placed a biliary and pancreatic stent. Imaging reveals evidence of pancreatitis with spontaneous passage of the previously placed pancreatic stent. The patient does drink alcohol 3-4 drinks per day but denies cannabis consumption. Physical examination: No obvious distress no scleral icterus diffuse abdominal tenderness Impression: Patient admitted with abdominal discomfort and imaging suggestive of acute pancreatitis. As the patient's liver enzymes are within normal limits I would hold on a repeat intervention for the present time. This patient would benefit from continued IV hydration, pain control and ultimately from a repeat endoscopic ultrasound to better evaluate the previously noted pancreatic mass. Recommendations N.p.o. today Consider a urine tox screen to screen for occult cannabis use Continue with IV hydration, LR at 150 to 175/h Please call with any questions or concerns History of Present Illness Reason for Consultation: pancreatitis Requesting Physician: Kelley Attending Physician: Kleley History of Present Illness 61 year old female presenting with abd pain, worsening over the last 24 hours. Pt was seen and evaluated, chart reviewed. Notes she underwent EGD/EUS/ERCP at [facility] end of september for abnormal imaging mild biliary dilatation with abrupt distal cut off, raising the possibility of a distal lesion. ERCP w/ negative biopsies and brushings. PD and CBD stent placed. Notes she uses ETOH daily, at least 2/3 drinks. Lipase 2000 normal LFTs CTAP: Findings are typical for acute pancreatitis. Correlate with clinical findings and serum amylase/lipase levels. 2. The gland enhances throughout and there is no organized peripancreatic fluid collection identified. 3. A common bile duct stent is in place. The common bile duct is dilated measuring up to 12 mm diameter. There is only minimal central intrahepatic biliary ductal dilatation. 4. The gallbladder is distended but otherwise normal in appearance. 5. Hepatic steatosis. 6. Small volume ascites. 7. The bladder wall appears circumferentially thickened. Correlate with clinical findings and urinalysis. 8. Diverticulosis of the remaining colon without CT evidence of acute diverticulitis. EGD: Normal esophagus. - Erythematous mucosa in the gastric body. Biopsied. - Normal duodenal bulb and second portion of the duodenum. EUS: An 8 mm hypoechoic subepithelial lesion was found in the periampullary area suggestive of possible carcinoid. Fine needle aspiration performed. - There was dilation in the common bile duct which measured up to 9 mm. - There was no sign of significant pathology in the gallbladder. - Multiple cystic lesions were found in the entire examined liver. - There was no sign of significant pathology in the entire pancreas. - Endosonographic images of the left adrenal gland were unremarkable. - The celiac trunk was endosonographically normal. ERCP: A single short biliary stricture was found in the lower third of the main bile duct. The stricture was indeterminate. Cells for cytology obtained. - A biliary sphincterotomy was performed. - One plastic pancreatic stent was placed into the ventral pancreatic duct. - One plastic biliary stent was placed into the common bile duct Allergies Allergy/AdvReac Type Severity Reaction Status Date / Time No Known Allergies Allergy Verified 10/16/21 08:11 Home Medications Medication Instructions Recorded Confirmed Type acetaminophen 500 mg tablet 1,000 mg PO Q6H PRN 08/08/19 10/16/21 History (Tylenol Extra Strength) cholecalciferol (vitamin D3) 25 1,000 unit PO QAM 08/08/19 10/16/21 History mcg (1,000 unit) capsule (Vitamin D3) lactobacillus combination no.4 3 3,000 mmu cells PO QAM 08/08/19 10/16/21 History billion cell capsule (Probiotic) multivitamin 1 tab PO PM 08/08/19 10/16/21 History thiamine HCl (vitamin B1) 100 mg 100 mg PO DAILY #30 tab 08/11/19 10/16/21 Rx tablet Patient History Medical History Abdominal lump Chronic low back pain Diverticulosis H/O diverticulitis of colon Lumbar radiculopathy Osteopenia Ovarian cyst, left Peroneal neuropathy White coat syndrome with high blood pressure but without hypertension Surgical History History of low anterior resection of rectum S/P colonoscopy January 2013 repeat 10yrs Family History Other Cancer No pertinent family history Denies family history of Ovarian cancer Prostate cancer Myocardial infarction Breast cancer Colorectal cancer Social History Smoking Status: Former smoker Tobacco Type: Cigarettes packs per day: 0.25; Years Smoked: 8; Hx Alcohol Use: Yes Alcohol type: beer and wine Preferred Language: Guinean marital status: Current Living Situation: Spouse Feels Safe at Home: Yes during the past year weight has: remained stable Review of Systems Review of Systems: All systems reviewed & are unremarkable except as noted in HPI & below Physical Exam Constitutional: WD/WN, vitals as above Respiratory: normal respiratory effort, lungs clear to auscultation Cardiovascular: RRR, no murmur, no edema Gastrointestinal (Abdomen): Inspection/Auscultation: abdomen normal to inspection and normal bowel sounds Percussion/Palpation: + abdomen tender and abdomen soft; no guarding and abdomen not rigid Skin: no rashes, warm and dry Results & Data ([facility]) Vital Signs (Past 12 Hours) Vital Signs Temp Pulse Resp BP Pulse Ox 10/16/21 07:50 36.9 C 91 H 18 136/97 97 Laboratory Results 10/16/21 10/16/21 Range/Units 08:21 08:21 WBC 11.50 H (4.8-10.8) K/uL RBC 4.28 (4.2-5.4) M/uL Hgb 14.7 (12.0-16.0) g/dL Hct 42.6 (37-47) % MCV 99.5 (80-100) fL MCH 34.3 H (25-34) pg MCHC 34.5 (32-36) g/dL RDW Std Deviation 45.0 (36.4-46.3) fL RDW Coeff of Philip 12.4 (11.5-14.5) % Plt Count 180 (130-400) K/uL MPV 9.6 (7.4-10.4) fL Immature Gran % (Auto) 0.2 % Neut % (Auto) 90.7 % Lymph % (Auto) 4.3 % [place] % (Auto) 4.7 % Eos % (Auto) 0.0 % Baso % (Auto) 0.1 % Neut # (Auto) 10.44 H (1.4-6.5) K/uL Lymph # (Auto) 0.49 L (1.2-3.4) K/uL [place] # (Auto) 0.54 (0.11-0.59) K/uL Eos # (Auto) 0.00 (0-0.5) K/uL Baso # (Auto) 0.01 (0-0.2) K/uL Immature Gran # (Auto) 0.02 (0.00-0.02) K/uL Sodium 144 (136-145) mmol/L Potassium 3.5 (3.5-5.1) mmol/L Chloride 104 (98-107) mmol/L Carbon Dioxide 25 (21-32) mmol/L Anion Gap 15 H (3-11) BUN 12 (6-23) mg/dl Creatinine 0.42 L (0.6-1.2) mg/dl Est Cr Clr Drug Dosing 116.2 ml/min Est GFR ( Amer) 127.3 ml/min Est GFR (Non-Af Amer) 109.9 ml/min BUN/Creatinine Ratio 28.6 H (10-20) Glucose 144 H (70-99(Fasting)) mg/dl Calcium 9.2 (8.5-10.1) mg/dl Total Bilirubin 0.8 (0.2-1.0) mg/dl AST 25 (13-39) U/L ALT 17 (7-52) U/L Alkaline Phosphatase 45 (34-104) U/L Troponin I < 0.03 (0-0.04) ng/ml Total Protein 6.8 (6.0-8.3) gm/dl Albumin 4.5 (3.4-5.0) gm/dl Globulin 2.3 L (2.5-4.0) gm/dl Albumin/Globulin Ratio 2.0 (0.9-2) Lipase 2575 H (11-82) U/L
[2021-10-16 10:39] LABS: Appearance Urine Clear (Clear); Bilirubin Urine Negative (Negative); Blood Urine Negative (Negative); Color Urine Yellow; Glucose Urine UA Negative (Negative); Ketones Urine 2+ (Negative); Leukocyte Esterase Urine Negative (Negative); Nitrite Urine Negative (Negative); Protein Urine Negative (Negative); Specific Gravity Urine > 1.045 (1.000-1.030); Urobilinogen Urine Negative (Negative); pH Urine 6.5 (4.5-7.5)
--- NOTE | 2021-10-16 10:46 | History & Physical Report ---
Date of Service October 16, 2021 Assessment & Plan (1) Pancreatitis: Plan: -WBC 11.5 with left shift, lipase 2575, abdominal CT showed findings typical for acute pancreatitis, no organized peripancreatic fluid. Common bile duct stent is in place, common bile duct dilated measuring up to 12 mm. Gallbladder distended but otherwise normal appearance. -GI consulted, appreciate their recommendations. -NPO. -LR at 200 cc/hr. -Dilaudid every 4h as needed. -Zofran every 4h as needed. -Patient is scheduled for an outpatient ERCP for stent removal in October, per GI recommendations no acute need for ERCP today. (2) Alcohol abuse: Plan: -Patient states she drinks 2-3 alcoholic beverages per day, has never experienced withdrawal symptoms from alcohol cessation. -Patient was counseled on the importance of abstinence from alcohol, as continued consumption we will continue to exacerbate her condition. -Continue thiamine 100 mg daily. Will add on folic acid daily. (3) Chronic low back pain: Plan: -Continue Tylenol every 6h as needed. (4) Osteopenia: Plan: -Continue vitamin D3 as previously prescribed. (5) Elevated glucose: Plan: -Without the diagnosis of diabetes. -Glucose today is 144 on is physically fasting BMP. -Continue to monitor. (6) DVT prophylaxis: Plan: -SCDs ordered. -Lovenox 40 daily. History of Present Illness Chief Complaint: abdominal pain Primary Care Provider: Teagan Deshpande MD Patient is a 61-year-old female with a past medical history of recent EGD/EUS/ERCP in September with concern for distal biliary lesion and PD/CBD stent placed who presents today with abdominal pain. Last evening around 11 PM, patient began to experience severe epigastric pain associated with nausea and vomiting. The pain is stabbing, does not radiate however it has been persistent since its onset. Patient states she has not been able to keep any food or liquids down since last evening and has experienced chills over the last 12 hours, but denies fever, myalgias, diarrhea, constipation, melena, or hematochezia. Denies recent abdominal trauma. Patient notes she consumed 3 alcoholic beverages earlier that day, along with ribs and macaroni and cheese. Allergies Allergy/AdvReac Type Severity Reaction Status Date / Time No Known Allergies Allergy Verified 10/16/21 08:11 Home Medications Medication Instructions Recorded Confirmed Type acetaminophen 500 mg tablet 1,000 mg PO Q6H PRN 08/08/19 10/16/21 History (Tylenol Extra Strength) cholecalciferol (vitamin D3) 25 1,000 unit PO QAM 08/08/19 10/16/21 History mcg (1,000 unit) capsule (Vitamin D3) lactobacillus combination no.4 3 3,000 mmu cells PO QAM 08/08/19 10/16/21 History billion cell capsule (Probiotic) multivitamin 1 tab PO PM 08/08/19 10/16/21 History thiamine HCl (vitamin B1) 100 mg 100 mg PO DAILY #30 tab 08/11/19 10/16/21 Rx tablet Past Med/Surg History Medical History Abdominal lump Chronic low back pain Diverticulosis H/O diverticulitis of colon Lumbar radiculopathy Osteopenia Ovarian cyst, left Peroneal neuropathy White coat syndrome with high blood pressure but without hypertension Surgical History History of low anterior resection of rectum S/P colonoscopy January 2013 repeat 10yrs Family History Other Cancer No pertinent family history Denies family history of Ovarian cancer Prostate cancer Myocardial infarction Breast cancer Colorectal cancer Social History Smoking Status: Former smoker Tobacco Type: Cigarettes packs per day: 0.25; Years Smoked: 8; Hx Alcohol Use: Yes Alcohol type: beer and wine Preferred Language: Thai marital status: Current Living Situation: Spouse Feels Safe at Home: Yes during the past year weight has: remained stable Review of Systems Review of Systems: Constitutional: No fever, sweats or chills Eyes: No diplopia, no worsening or blurred vision ENT: normal hearing, no trouble swallowing Respiratory: No cough, sputum, dyspnea at rest or on exertion Cardiovascular: No chest pain, tightness or palpitations Abdomen: reports epigastric with nausea and vomiting; no diarrhea or constipation Musculoskeletal: No joint pain, calf pain, swelling Neurologic: No weakness, numbness/tingling, or balance problems Psychiatric: No anxiety or depression Skin: No rash or itch Physical Exam Physical Exam: General: awake, alert, no apparent distress Head: Normocephalic, atraumatic ENT: PERRL, EOMI, no pharyngeal exudate, mucous membranes moist Chest: Clear to auscultation, on room air, no adventitious breath sounds Cardiac: Regular rate and rhythm, no murmur, no JVD, normal peripheral pulses, good capillary refill Abdominal: epigastric pain with radiation to RUQ; NABS. Extremities: Normal inspection, no peripheral edema or erythema, calfs nontender to palpation Psych: Normal mood and affect Neuro: AAO x 3, strength intact bilaterally and rated 5/5, no motor deficits, speech is clear, no peripheral sensory deficits Skin: no rash or erythema Results & Data Results & Data ([facility]) Vital Signs (Past 12 Hours) Vital Signs Temp Pulse Pulse Resp BP BP Pulse Ox 10/16/21 10:00 37 C 87 18 172/104 H 99 10/16/21 07:50 36.9 C 91 H 18 136/97 97 Laboratory Results Lab Results 10/16/21 10/16/21 10/16/21 Range/Units 08:21 08:21 10:34 WBC 11.50 H (4.8-10.8) K/uL RBC 4.28 (4.2-5.4) M/uL Hgb 14.7 (12.0-16.0) g/dL Hct 42.6 (37-47) % MCV 99.5 (80-100) fL MCH 34.3 H (25-34) pg MCHC 34.5 (32-36) g/dL RDW Std Deviation 45.0 (36.4-46.3) fL RDW Coeff of Philip 12.4 (11.5-14.5) % Plt Count 180 (130-400) K/uL MPV 9.6 (7.4-10.4) fL Immature Gran % (Auto) 0.2 % Neut % (Auto) 90.7 % Lymph % (Auto) 4.3 % Dickinson % (Auto) 4.7 % Eos % (Auto) 0.0 % Baso % (Auto) 0.1 % Neut # (Auto) 10.44 H (1.4-6.5) K/uL Lymph # (Auto) 0.49 L (1.2-3.4) K/uL Dickinson # (Auto) 0.54 (0.11-0.59) K/uL Eos # (Auto) 0.00 (0-0.5) K/uL Baso # (Auto) 0.01 (0-0.2) K/uL Immature Gran # (Auto) 0.02 (0.00-0.02) K/uL Sodium 144 (136-145) mmol/L Potassium 3.5 (3.5-5.1) mmol/L Chloride 104 (98-107) mmol/L Carbon Dioxide 25 (21-32) mmol/L Anion Gap 15 H (3-11) BUN 12 (6-23) mg/dl Creatinine 0.42 L (0.6-1.2) mg/dl Est Cr Clr Drug Dosing 116.2 ml/min Est GFR ( Amer) 127.3 ml/min Est GFR (Non-Af Amer) 109.9 ml/min BUN/Creatinine Ratio 28.6 H (10-20) Glucose 144 H (70-99(Fasting)) mg/dl Calcium 9.2 (8.5-10.1) mg/dl Total Bilirubin 0.8 (0.2-1.0) mg/dl AST 25 (13-39) U/L ALT 17 (7-52) U/L Alkaline Phosphatase 45 (34-104) U/L Troponin I < 0.03 (0-0.04) ng/ml Total Protein 6.8 (6.0-8.3) gm/dl Albumin 4.5 (3.4-5.0) gm/dl Globulin 2.3 L (2.5-4.0) gm/dl Albumin/Globulin Ratio 2.0 (0.9-2) Lipase 2575 H (11-82) U/L Urine Color Yellow Urine Appearance Clear (Clear) Urine pH 6.5 (4.5-7.5) Ur Specific [place] > 1.045 H (1.000-1.030) Urine Protein Negative (Negative) Urine Glucose (UA) Negative (Negative) Urine Ketones 2+ H (Negative) Urine Blood Negative (Negative) Urine Nitrite Negative (Negative) Urine Bilirubin Negative (Negative) Urine Urobilinogen Negative (Negative) Ur Leukocyte Esterase Negative (Negative) Diagnostic Findings Abdomen/Pelvis CT 10/16/21 08:03 CT SCAN OF THE ABDOMEN AND PELVIS WITH IV CONTRAST CLINICAL HISTORY: Generalized abdominal pain. Biliary stent. COMPARISON STUDY: Abdominal CT dated 06/05/2017. TECHNIQUE: Following the IV administration of 94 cc of Optiray 320, CT scan of the abdomen and pelvis is performed from the lung bases to the proximal femora. Images are reviewed in the axial, sagittal, and coronal planes. IV contrast was administered without complication. A dose lowering technique was utilized adhering to the principles of ALARA. CT DOSE: 263.59 mGy.cm FINDINGS: Lung bases: The heart is top normal in size and without pericardial effusion. The lung bases are clear noting dependent atelectasis. There is a small hiatal hernia. Liver: The contrast-enhanced liver is normal in size and contour. The liver demonstrates diffusely diminished attenuation indicating steatosis. There is minimal central intrahepatic biliary ductal dilatation. The hepatic veins and portal veins are patent. There are numerous hepatic cysts which measure up to 5 cm. Gallbladder: The gallbladder is distended but otherwise normal in appearance. A stent is in place from the mid common bile duct to the duodenum. The common bile duct is dilated measuring 1.2 cm in diameter. Spleen: Normal in size and attenuation. Pancreas: The pancreas appears edematous. Significant infiltration and fluid seen around the pancreatic body and tail, typical for acute pancreatitis. The gland enhances throughout. The duct is normal in caliber. No organized peripancreatic fluid collection is seen. The splenic vein is patent. Adrenal glands: Unremarkable. Kidneys: The contrast enhanced kidneys are normal in size and without hydronephrosis. The kidneys enhance symmetrically. There are numerous subcentimeter cortical hypodensities. These likely represent cysts but are too small for definitive characterization. Left-sided perinephric fluid is likely related to adjacent pancreatitis. Abdominal vasculature: The abdominal aorta is normal in course and caliber noting mild atherosclerotic calcification. Bowel: There is postoperative change from sigmoid colon resection with colocolonic anastomosis. No bowel obstruction is seen. There is moderate diverticulosis of the remaining colon without CT evidence of acute diverticulitis. A small bowel anastomosis is seen in the right lower quadrant. The appendix is normal as visualized. Peritoneum: There is no intraperitoneal free air. There is trace perisplenic ascites as well as a small volume of pelvic ascites. There are large fat- containing umbilical and supraumbilical hernias. Lymphadenopathy: None. Pelvic viscera: The bladder is mildly distended and appears circumferentially thick walled. The uterus is heterogeneous and fibroids are suspected. No adnexal lesion is seen. Numerous phleboliths are observed in the pelvis. Skeletal structures: The skeletal structures are osteopenic. There is mild lumbosacral spondylosis. There is a mild chronic appearing superior endplate compression deformity of L2. No lytic or blastic lesions are seen. There are chronic/healed right-sided rib fractures. IMPRESSION: 1. Findings are typical for acute pancreatitis. Correlate with clinical findings and serum amylase/lipase levels. 2. The gland enhances throughout and there is no organized peripancreatic fluid collection identified. 3. A common bile duct stent is in place. The common bile duct is dilated measuring up to 12 mm diameter. There is only minimal central intrahepatic matthew iary ductal dilatation. 4. The gallbladder is distended but otherwise normal in appearance. 5. Hepatic steatosis. 6. Small volume ascites. 7. The bladder wall appears circumferentially thickened. Correlate with clinical findings and urinalysis. 8. Diverticulosis of the remaining colon without CT evidence of acute diverticulitis. 9. Additional findings as above. Medications Administered Home Medications Medication Instructions Recorded Confirmed Last Taken acetaminophen 500 mg tablet 1,000 mg PO Q6H PRN 08/08/19 10/16/21 08/06/19 (Tylenol Extra Strength) cholecalciferol (vitamin D3) 25 1,000 unit PO QAM 08/08/19 10/16/21 10/15/21 mcg (1,000 unit) capsule (Vitamin D3) lactobacillus combination no.4 3 3,000 mmu cells PO QAM 08/08/19 10/16/21 10/15/21 billion cell capsule (Probiotic) multivitamin 1 tab PO PM 08/08/19 10/16/21 10/15/21 thiamine HCl (vitamin B1) 100 mg 100 mg PO DAILY #30 tab 08/11/19 10/16/21 10/15/21 tablet Code Status & VTE Plan Code Status Full Code Supervising Physician Co-Signing Physician Notes Patient seen and examined, chart reviewed, case discussed with Liseth Sommer and I agree with the assessment and plan as above except as otherwise noted Rebecca Queen is a 61-year-old female with a past medical history of whitecoat hypertension, recent EGD/EUS/ERCP in September with concern for distal biliary lesion and PD/CBD stent placed. She represents with worsening pain in the last 24 hours. 2-3 drinks daily alcohol use. She is recommended for admission for acute pancreatitis General: A&Ox3. NAD. Cooperative.Appears uncomfortable on exam. HEENT: Atraumatic, normocephalic. Vision/hearing grossly intact. Pulm: CTAB A&P. -wheezes, -rales, -rhonchi. Symmetrical chest rise. No increase in work of breathing. No respiratory distress. Cardiac: RRR, -mrg. Radial pulses intact and symmetrical. Abdominal: Diffuse abdominal tenderness without rebound, most prominent around epigastrium/LUQ. Acute pancreatitis CTA/P: Findings are typical for acute pancreatitis. Correlate with clinical findings and serum amylase/lipase levels. The gland enhances throughout and there is no organized peripancreatic fluid collection identified. A common bile duct stent is in place. The common bile duct is dilated measuring up to 12 mm diameter. There is only minimal central intrahepatic biliary ductal dilatation. The gallbladder is distended but otherwise normal in appearance. Hepatic steatosis. Small volume ascites.. The bladder wall appears circumferentially thickened. Correlate with clinical findings and urinalysis. Diverticulosis of the remaining colon without CT evidence of acute diverticulitis. - GI consulted. No plans for ERCP at this time. Recommended to keep for outpatient ERCP. N.p.o., LR 150-175cc, antiemetics, pain control, EtOH counseling No signs of obstruction on imaging above slightly hypertensive in context of pain, continue pain control At risk protocol for alcohol, no history of withdrawal symptoms. Continue thiamine, folic acid PG Care Time/CCT Total # of Minutes Spent Total Time Spent with Patient: Total time spent is greater than 50% in coordination of care (as documented) at patient's floor/unit and/or counseling patient: Coding Level of Care Code 33815 Initial Inpt Care Lvl 2 Diagnoses Pancreatitis K85.90 Acute pancreatitis complication: no infection or necrosis Chronicity: acute Pancreatitis type: unspecified pancreatitis type Chronic low back pain M54.5; G89.29 Osteopenia M85.80 DVT prophylaxis Z29.9 Alcohol abuse F10.10 Elevated glucose R73.09 (1) Pancreatitis Acute pancreatitis complication: no infection or necrosis Chronicity: acute Pancreatitis type: unspecified pancreatitis type Qualified Code(s): K85.90 - Acute pancreatitis without necrosis or infection, unspecified
[2021-10-16] MEDS ORDERED: HYDROmorphone INJ 0.5 MG/0.5 ML SYR IV STA (11:16)
[2021-10-16] MEDS ORDERED: ACETAMINOPHEN 500 MG TAB PO PRN (15:35)
[2021-10-16] MEDS: HYDROmorphone INJ 0.5 MG/0.5 ML SYR IV PRN ×3 (15:48→22:02)
[2021-10-16] MEDS: ONDANSETRON INJ 2 MG/ML 2 ML VIAL IV PRN ×2 (15:48→22:03)
[2021-10-16] MEDS: LACTATED RINGER'S 1,000 ML IV SCH ×2 (18:52→23:25)
[2021-10-16] MEDS: FOLIC ACID 1 MG TAB PO SCH (18:53)
[2021-10-16] MEDS: ENOXAPARIN INJ 40 MG/0.4 ML SYR SQ SCH (18:53)
--- NOTE | 2021-10-16 22:48 | Electrocardiogram Report ---
Test Reason : Blood Pressure : / mmHG Vent. Rate : 072 BPM Atrial Rate : 072 BPM P-R Int : 136 ms QRS Dur : 074 ms QT Int : 428 ms P-R-T Axes : 049 051 054 degrees QTc Int : 468 ms Poor data quality, interpretation may be adversely affected Normal sinus rhythm Normal ECG No previous ECGs available Confirmed by Beto Griffin ([id number]) on 10/16/2021 10:48:06 PM Referred By: REFERRED SELF Confirmed By:Beto Griffin
[2021-10-17] MEDS: HYDROmorphone INJ 1 MG/ML SYRINGE IV PRN ×5 (02:52→21:05)
[2021-10-17] MEDS: LACTATED RINGER'S 1,000 ML IV SCH ×5 (02:53→22:37)
[2021-10-17 06:52] LABS: Basophils # (auto) 0.01 K/uL (0-0.2); Basophils % (auto) 0.1 %; Hemoglobin 12.8 g/dL (12.0-16.0); Immature Granulocytes # (auto) 0.02 K/uL (0.00-0.02); Immature Granulocytes % (auto) 0.2 %; Lymphocytes # (auto) 1.17 K/uL (1.2-3.4); Lymphocytes % (auto) 12.5 %; Mean Corpuscular Hemoglobin 34.8 pg (25-34); Mean Corpuscular Hgb Conc 33.7 g/dL (32-36); Mean Corpuscular Volume 103.3 fL (80-100); Mean Platelet Volume 9.7 fL (7.4-10.4); Monocytes # (auto) 0.68 K/uL (0.11-0.59); Monocytes % (auto) 7.3 %; Neutrophils # (auto) 7.46 K/uL (1.4-6.5); Neutrophils % (auto) 79.9 %; Platelet Count 141 K/uL (130-400); RDW Coefficient of Variation 12.7 % (11.5-14.5); RDW Standard Deviation 48.3 fL (36.4-46.3); Red Blood Count 3.68 M/uL (4.2-5.4); White Blood Count 9.34 K/uL (4.8-10.8)
[2021-10-17 07:10] LABS: BUN Creatinine Ratio 17.4 (10-20); Calcium 7.7 mg/dl (8.5-10.1); Creatinine Clr Calc Pharmacy 111.3 ml/min; Est GFR (African American) 123.6 ml/min; Est GFR (Non-African American) 106.6 ml/min; Potassium 3.5 mmol/L (3.5-5.1)
--- NOTE | 2021-10-17 08:46 | Gastroenterology Progress Note ---
Date of Service October 17, 2021 Assessment & Plan (1) RUQ abdominal pain: Plan: 61 year old female admitted w/ abd pain, imaging and labs concerning for acute pancreatitis recent EGD/EUS/ERCP reviewed. Is scheduled for ERCP as OP in October for stent removal Given normal LFTs, no plan for acute ERCP Keep OP ERCP as scheduled NPO LR 200 mL/hr Antiemetics PRN Analgesia PRN Recommend ETOH cessation Will trial ice chips and sips, if tolerating can have liquid dinner Thank you for allowing us to participate in the care of this patient. Please call with any acute changes, questions or concerns. Please see addendum below with additional recommendation from my supervising physician. Admission and Anticipated Discharge Date Admission Date: October 16, 2021 Supervising Physician Co-Signing Physician Notes I have personally seen and examined the patient with JOSE ELIAS Spivey. Her note reflects my exam and findings. I agree with her impression and plan. Still having some epigastric pain but better. Improving pancreatitis. Lipase down to 1224. Donny Blakely M.D. Subjective Pt was seen and evaluated, chart reviewed. Pain less severe, less frequent but still present Wants to try ice chips and sips but not ready for liquid diet Review of Systems Review of Systems: All systems reviewed & are unremarkable except as noted in HPI & below Physical Exam Constitutional: WD/WN, vitals as above Respiratory: normal respiratory effort, lungs clear to auscultation Cardiovascular: RRR, no murmur, no edema Gastrointestinal (Abdomen): Inspection/Auscultation: abdomen normal to insp ection and normal bowel sounds Percussion/Palpation: + abdomen tender and abdomen soft; no guarding and abdomen not rigid Skin: no rashes, warm and dry Results & Data ([facility]) Vital Signs (Past 12 Hours) Vital Signs Temp Pulse Resp BP Pulse Ox 10/17/21 07:28 36.9 C 93 H 18 130/80 93 10/16/21 21:45 36.8 C 18 162/94 H 92 10/16/21 21:38 70 18 132/99 95 Laboratory Results 10/17/21 10/17/21 10/17/21 Range/Units 06:24 06:24 06:24 WBC 9.34 (4.8-10.8) K/uL RBC 3.68 L (4.2-5.4) M/uL Hgb 12.8 (12.0-16.0) g/dL Hct 38.0 (37-47) % MCV 103.3 H (80-100) fL MCH 34.8 H (25-34) pg MCHC 33.7 (32-36) g/dL RDW Std Deviation 48.3 H (36.4-46.3) fL RDW Coeff of Philip 12.7 (11.5-14.5) % Plt Count 141 (130-400) K/uL MPV 9.7 (7.4-10.4) fL Immature Gran % (Auto) 0.2 % Neut % (Auto) 79.9 % Lymph % (Auto) 12.5 % [place] % (Auto) 7.3 % Eos % (Auto) 0.0 % Baso % (Auto) 0.1 % Neut # (Auto) 7.46 H (1.4-6.5) K/uL Lymph # (Auto) 1.17 L (1.2-3.4) K/uL [place] # (Auto) 0.68 H (0.11-0.59) K/uL Eos # (Auto) 0.00 (0-0.5) K/uL Baso # (Auto) 0.01 (0-0.2) K/uL Immature Gran # (Auto) 0.02 (0.00-0.02) K/uL Sodium 139 (136-145) mmol/L Potassium 3.5 (3.5-5.1) mmol/L Chloride 103 (98-107) mmol/L Carbon Dioxide 31 (21-32) mmol/L Anion Gap 5 (3-11) BUN 8 (6-23) mg/dl Creatinine 0.46 L (0.6-1.2) mg/dl Est Cr Clr Drug Dosing 111.3 ml/min Est GFR ( Amer) 123.6 ml/min Est GFR (Non-Af Amer) 106.6 ml/min BUN/Creatinine Ratio 17.4 (10-20) Glucose 96 (70-99(Fasting)) mg/dl Calcium 7.7 L (8.5-10.1) mg/dl Total Bilirubin (0.2-1.0) mg/dl AST (13-39) U/L ALT (7-52) U/L Alkaline Phosphatase (34-104) U/L Troponin I (0-0.04) ng/ml Total Protein (6.0-8.3) gm/dl Albumin (3.4-5.0) gm/dl Globulin (2.5-4.0) gm/dl Albumin/Globulin Ratio (0.9-2) Lipase Pending (11-82) U/L Urine Color Urine Appearance (Clear) Urine pH (4.5-7.5) Ur Specific [place] (1.000-1.030) Urine Protein (Negative) Urine Glucose (UA) (Negative) Urine Ketones (Negative) Urine Blood (Negative) Urine Nitrite (Negative) Urine Bilirubin (Negative) Urine Urobilinogen (Negative) Ur Leukocyte Esterase (Negative) SARS-CoV-2, RNA, NAAT (NEGATIVE) 10/16/21 10/16/21 10/16/21 Range/Units 12:30 10:34 08:21 WBC (4.8-10.8) K/uL RBC (4.2-5.4) M/uL Hgb (12.0-16.0) g/dL Hct (37-47) % MCV (80-100) fL MCH (25-34) pg MCHC (32-36) g/dL RDW Std Deviation (36.4-46.3) fL RDW Coeff of Philip (11.5-14.5) % Plt Count (130-400) K/uL MPV (7.4-10.4) fL Immature Gran % (Auto) % Neut % (Auto) % Lymph % (Auto) % [place] % (Auto) % Eos % (Auto) % Baso % (Auto) % Neut # (Auto) (1.4-6.5) K/uL Lymph # (Auto) (1.2-3.4) K/uL [place] # (Auto) (0.11-0.59) K/uL Eos # (Auto) (0-0.5) K/uL Baso # (Auto) (0-0.2) K/uL Immature Gran # (Auto) (0.00-0.02) K/uL Sodium 144 (136-145) mmol/L Potassium 3.5 (3.5-5.1) mmol/L Chloride 104 (98-107) mmol/L Carbon Dioxide 25 (21-32) mmol/L Anion Gap 15 H (3-11) BUN 12 (6-23) mg/dl Creatinine 0.42 L (0.6-1.2) mg/dl Est Cr Clr Drug Dosing 116.2 ml/min Est GFR ( Amer) 127.3 ml/min Est GFR (Non-Af Amer) 109.9 ml/min BUN/Creatinine Ratio 28.6 H (10-20) Glucose 144 H (70-99(Fasting)) mg/dl Calcium 9.2 (8.5-10.1) mg/dl Total Bilirubin 0.8 (0.2-1.0) mg/dl AST 25 (13-39) U/L ALT 17 (7-52) U/L Alkaline Phosphatase 45 (34-104) U/L Troponin I < 0.03 (0-0.04) ng/ml Total Protein 6.8 (6.0-8.3) gm/dl Albumin 4.5 (3.4-5.0) gm/dl Globulin 2.3 L (2.5-4.0) gm/dl Albumin/Globulin Ratio 2.0 (0.9-2) Lipase 2575 H (11-82) U/L Urine Color Yellow Urine Appearance Clear (Clear) Urine pH 6.5 (4.5-7.5) Ur Specific [place] > 1.045 H (1.000-1.030) Urine Protein Negative (Negative) Urine Glucose (UA) Negative (Negative) Urine Ketones 2+ H (Negative) Urine Blood Negative (Negative) Urine Nitrite Negative (Negative) Urine Bilirubin Negative (Negative) Urine Urobilinogen Negative (Negative) Ur Leukocyte Esterase Negative (Negative) SARS-CoV-2, RNA, NAAT NEGATIVE (NEGATIVE)
[2021-10-17] MEDS: FOLIC ACID 1 MG TAB PO SCH (08:58)
[2021-10-17] MEDS: CHOLECALCIFEROL 1,000 UNITS 25 MCG TAB PO SCH (08:58)
[2021-10-17] MEDS: THIAMINE HCL 100 MG TAB PO SCH (08:58)
[2021-10-17 10:15] LABS: Albumin Level 3.3 gm/dl (3.4-5.0); Bilirubin Direct 0.2 mg/dl (0-0.2); Total Protein 5.3 gm/dl (6.0-8.3)
--- NOTE | 2021-10-17 11:27 | Hospitalist Progress Note ---
Date of Service October 17, 2021 Assessment & Plan (1) Pancreatitis: Plan: - Reports this as a first episode -- H/O suspected pancreatic mass and follows with [facility] GI. Had ERCP/EUS with biopsies performed and a biilary and pancreatic stent placed. She ultimatel y passed the pancreatic stent. She is scheduled to have biliary stent removed as an outpatient on November 02 with plans to keep this appointment as is -- EUS did show an 8 mm hypoechoic subepithelial lesion in the periampullary area suggestive of carcinoid but review of pathology shows this was benign - CT - findings of acute pancreatitis with no organized peripancreatic fluid collection; CBD stent in place and duct measuring up to 12 mm diameter with only minimal central intrahepatic biliary ductal dilation; gallbladder distended by otherwise normal in appearance; liver with multiple cysts and hepatic steatosis; small volume ascites; circumferentially thickened bladder wall; diverticulosis without diverticulitis - Leukocytosis is resolved; remains afebrile; Lipase trending down - Attempted small sips of water but states it felt bothersome - given ETOH intake may have a gastritis as well and will add Pepcid IV BID - Allow sips/chips and monitor tolerance - will slowly advance diet pending tolerance and will reassess -- possibly for liquid dinner - LR 200 mL/hr and continue pain regimen - CT with significant stool burden - pending diet advancement would benefit from bowel regimen (2) Alcohol abuse: Plan: -Patient states she drinks 2-3 alcoholic beverages per day, has never experienced withdrawal symptoms from alcohol cessation; no current signs of withdrawal -Encourage ETOH cessation as likely to contribute to ongoing pancreatitis -Continue thiamine 100 mg daily. Will add on folic acid daily. (3) Chronic low back pain: Plan: -Continue Tylenol every 6h as needed. (4) Osteopenia: Plan: -Continue vitamin D3 as previously prescribed. (5) Elevated glucose: Plan: - Glucose 144 on admission but fasting AM today was 96 - No A1c in the system. Can have routine monitoring with PCP (6) DVT prophylaxis: Plan: -Lovenox 40 daily Plan: Sips/chips today. Possibly diet advancement to liquids tonight and will advance diet as tolerated Plan for outpatient ERCP/EUS Once pain improved and diet advanced can discharge home - possible in next 2-3 days Admission and Anticipated Discharge Date Admission Date: October 16, 2021 Subjective No acute events overnight. Reports she is feeling much better today but still with epigastric pain. She did attempt some ice chips but said it didn't feel good. Will add Pepcid to see if this helps. Currently no appetite. No nausea/vomiting. Lipase is trending down. Verbalizes no new complaints Review of Systems Review of Systems: All systems reviewed & are unremarkable except as noted in Subjective Physical Exam Physical Exam: PHYSICAL EXAM General Appearance: WDWN in NAD who is A&O x 3 HEENT: Head is normocephalic/atraumatic; Mucous membranes moist Neck: Supple; Trachea midline; Neg JVD Heart: RRR with no M/G/R Lungs: CTA in all lung seals bilaterally; Respirations unlabored; Neg accessory muscle use Abdomen: Soft,mild tenderness in epigastric region, non-distended; No guarding/rigidity; hypoactive BS x 4 quadrants Extremities: Neg cyanosis or edema Neurological: Speech clear; Gross motor/sensory function intact; Neg focal neurologic deficits Psychiatric: Appropriate mood/affect Skin: Normal Color; Warm/Dry Results & Data Results & Data ([facility]) Vital Signs (Past 12 Hours) Vital Signs Temp Pulse Resp BP Pulse Ox 10/17/21 07:28 36.9 C 93 H 18 130/80 93 PG Care Time/CCT Total # of Minutes Spent Total Time Spent with Patient: Total time spent is greater than 50% in coordination of care (as documented) at patient's floor/unit and/or counseling patient: Coding Level of Care Code 56310 Subseq Hosp Care Lvl 3 Diagnoses Pancreatitis K85.90 Chronicity: acute Pancreatitis type: unspecified pancreatitis type Acute pancreatitis complication: no infection or necrosis Alcohol abuse F10.10 Chronic low back pain M54.5; G89.29 Osteopenia M85.80 Elevated glucose R73.09 DVT prophylaxis Z29.9 (1) Pancreatitis Chronicity: acute Pancreatitis type: unspecified pancreatitis type Acute pancreatitis complication: no infection or necrosis Qualified Code(s): K85.90 - Acute pancreatitis without necrosis or infection, unspecified
[2021-10-17] MEDS: FAMOTIDINE 20 MG in SYRINGE 3 ML IV SCH ×2 (11:49→21:01)
[2021-10-17] MEDS: ENOXAPARIN INJ 40 MG/0.4 ML SYR SQ SCH (16:37)
[2021-10-18] MEDS: HYDROmorphone INJ 1 MG/ML SYRINGE IV PRN ×2 (02:33→09:31)
[2021-10-18] MEDS: ONDANSETRON INJ 2 MG/ML 2 ML VIAL IV PRN (02:40)
[2021-10-18] MEDS: LACTATED RINGER'S 1,000 ML IV SCH ×4 (02:43→16:08)
[2021-10-18] MEDS: POLYETHYLENE (MIRALAX) 17 GM PACK PO PRN (05:31)
[2021-10-18 06:40] LABS: Basophils # (auto) 0.02 K/uL (0-0.2); Basophils % (auto) 0.2 %; Eosinophils # (auto) 0.03 K/uL (0-0.5); Eosinophils % (auto) 0.3 %; Hematocrit (blood only) 37.2 % (37-47); Hemoglobin 12.2 g/dL (12.0-16.0); Immature Granulocytes # (auto) 0.02 K/uL (0.00-0.02); Immature Granulocytes % (auto) 0.2 %; Lymphocytes # (auto) 1.42 K/uL (1.2-3.4); Lymphocytes % (auto) 15.8 %; Mean Corpuscular Hemoglobin 34.1 pg (25-34); Mean Corpuscular Hgb Conc 32.8 g/dL (32-36); Mean Corpuscular Volume 103.9 fL (80-100); Mean Platelet Volume 9.9 fL (7.4-10.4); Neutrophils % (auto) 73.5 %; Platelet Count 124 K/uL (130-400); RDW Coefficient of Variation 12.4 % (11.5-14.5); RDW Standard Deviation 47.6 fL (36.4-46.3); Red Blood Count 3.58 M/uL (4.2-5.4); White Blood Count 8.99 K/uL (4.8-10.8)
[2021-10-18 06:56] LABS: Albumin Globulin Ratio 1.4 (0.9-2); Albumin Level 2.9 gm/dl (3.4-5.0); BUN Creatinine Ratio 14.3 (10-20); Bilirubin,Total 1.2 mg/dl (0.2-1.0); Calcium 7.8 mg/dl (8.5-10.1); Creatinine Clr Calc Pharmacy 146.3 ml/min; Est GFR (African American) 135.2 ml/min; Est GFR (Non-African American) 116.6 ml/min; Globulin 2.1 gm/dl (2.5-4.0); Potassium 2.9 mmol/L (3.5-5.1)
[2021-10-18] MEDS: THIAMINE HCL 100 MG TAB PO SCH (07:36)
[2021-10-18] MEDS: FOLIC ACID 1 MG TAB PO SCH (07:36)
[2021-10-18] MEDS: CHOLECALCIFEROL 1,000 UNITS 25 MCG TAB PO SCH (07:37)
[2021-10-18] MEDS: FAMOTIDINE 20 MG in SYRINGE 3 ML IV SCH ×2 (07:40→20:44)
[2021-10-18] MEDS ORDERED: POTASSIUM CHLORIDE CRTAB 20 MEQ TABCR PO STA (08:37)
--- NOTE | 2021-10-18 08:58 | Gastroenterology Progress Note ---
Date of Service October 18, 2021 Assessment & Plan (1) RUQ abdominal pain: Plan: 61 year old female admitted w/ abd pain, imaging and labs concerning for acute pancreatitis recent EGD/EUS/ERCP reviewed. Is scheduled for ERCP as OP in October for stent removal. Lipase 190. Given normal LFTs, no plan for acute ERCP Keep OP ERCP as scheduled Clear liquids --> can advance to low fat as tolerated Replace K. LR 200 mL/hr Antiemetics PRN Analgesia PRN Recommend ETOH cessation Will trial ice chips and sips, if tolerating can have liquid dinner Thank you for allowing us to participate in the care of this patient. Please call with any acute changes, questions or concerns. Please see addendum below with additional recommendation from my supervising physician. Admission and Anticipated Discharge Date Admission Date: October 16, 2021 Subjective Pt was seen and evaluated, chart reviewed. Was feeling better until she ambulated in the weber She was tolerating clear liquids. No fever, chills, CP, SOB. Review of Systems Review of Systems: All systems reviewed & are unremarkable except as noted in HPI & below Physical Exam Constitutional: WD/WN, vitals as above Respiratory: normal respiratory effort, lungs clear to auscultation Cardiovascular: RRR, no murmur, no edema Gastrointestinal (Abdomen): Inspection/Auscultation: abdomen normal to inspection and normal bowel sounds Percussion/Palpation: + abdomen tender and abdomen soft; no guarding and abdomen not rigid Skin: no rashes, warm and dry Results & Data ([facility]) Vital Signs (Past 12 Hours) Vital Signs Temp Pulse Resp BP Pulse Ox 10/18/21 07:16 36.8 C 88 18 128/75 97 10/17/21 23:10 94 10/17/21 23:06 37.5 C 89 20 118/70 84 L Laboratory Results 10/18/21 10/18/21 10/17/21 Range/Units 06:02 06:02 06:24 WBC 8.99 (4.8-10.8) K/uL RBC 3.58 L (4.2-5.4) M/uL Hgb 12.2 (12.0-16.0) g/dL Hct 37.2 (37-47) % MCV 103.9 H (80-100) fL MCH 34.1 H (25-34) pg MCHC 32.8 (32-36) g/dL RDW Std Deviation 47.6 H (36.4-46.3) fL RDW Coeff of Philip 12.4 (11.5-14.5) % Plt Count 124 L (130-400) K/uL MPV 9.9 (7.4-10.4) fL Immature Gran % (Auto) 0.2 % Neut % (Auto) 73.5 % Lymph % (Auto) 15.8 % [place] % (Auto) 10.0 % Eos % (Auto) 0.3 % Baso % (Auto) 0.2 % Neut # (Auto) 6.60 H (1.4-6.5) K/uL Lymph # (Auto) 1.42 (1.2-3.4) K/uL [place] # (Auto) 0.90 H (0.11-0.59) K/uL Eos # (Auto) 0.03 (0-0.5) K/uL Baso # (Auto) 0.02 (0-0.2) K/uL Immature Gran # (Auto) 0.02 (0.00-0.02) K/uL Sodium 137 (136-145) mmol/L Potassium 2.9 L (3.5-5.1) mmol/L Chloride 100 (98-107) mmol/L Carbon Dioxide 31 (21-32) mmol/L Anion Gap 6 (3-11) BUN 5 L (6-23) mg/dl Creatinine 0.35 L (0.6-1.2) mg/dl Est Cr Clr Drug Dosing 146.3 ml/min Est GFR ( Amer) 135.2 ml/min Est GFR (Non-Af Amer) 116.6 ml/min BUN/Creatinine Ratio 14.3 (10-20) Glucose 77 (70-99(Fasting)) mg/dl Calcium 7.8 L (8.5-10.1) mg/dl Total Bilirubin 1.2 H 1.0 (0.2-1.0) mg/dl Direct Bilirubin 0.2 (0-0.2) mg/dl AST 21 22 (13-39) U/L ALT 10 11 (7-52) U/L Alkaline Phosphatase 29 L 29 L (34-104) U/L Total Protein 5.0 L 5.3 L D (6.0-8.3) gm/dl Albumin 2.9 L 3.3 L (3.4-5.0) gm/dl Globulin 2.1 L (2.5-4.0) gm/dl Albumin/Globulin Ratio 1.4 (0.9-2) Lipase 190 H (11-82) U/L 10/17/21 Range/Units 06:24 WBC (4.8-10.8) K/uL RBC (4.2-5.4) M/uL Hgb (12.0-16.0) g/dL Hct (37-47) % MCV (80-100) fL MCH (25-34) pg MCHC (32-36) g/dL RDW Std Deviation (36.4-46.3) fL RDW Coeff of Philip (11.5-14.5) % Plt Count (130-400) K/uL MPV (7.4-10.4) fL Immature Gran % (Auto) % Neut % (Auto) % Lymph % (Auto) % [place] % (Auto) % Eos % (Auto) % Baso % (Auto) % Neut # (Auto) (1.4-6.5) K/uL Lymph # (Auto) (1.2-3.4) K/uL [place] # (Auto) (0.11-0.59) K/uL Eos # (Auto) (0-0.5) K/uL Baso # (Auto) (0-0.2) K/uL Immature Gran # (Auto) (0.00-0.02) K/uL Sodium (136-145) mmol/L Potassium (3.5-5.1) mmol/L Chloride (98-107) mmol/L Carbon Dioxide (21-32) mmol/L Anion Gap (3-11) BUN (6-23) mg/dl Creatinine (0.6-1.2) mg/dl Est Cr Clr Drug Dosing ml/min Est GFR ( Amer) ml/min Est GFR (Non-Af Amer) ml/min BUN/Creatinine Ratio (10-20) Glucose (70-99(Fasting)) mg/dl Calcium (8.5-10.1) mg/dl Total Bilirubin (0.2-1.0) mg/dl Direct Bilirubin (0-0.2) mg/dl AST (13-39) U/L ALT (7-52) U/L Alkaline Phosphatase (34-104) U/L Total Protein (6.0-8.3) gm/dl Albumin (3.4-5.0) gm/dl Globulin (2.5-4.0) gm/dl Albumin/Globulin Ratio (0.9-2) Lipase 1224 H (11-82) U/L
[2021-10-18] MEDS ORDERED: bisacodyL 10 MG SUPP PR STA (09:38)
--- NOTE | 2021-10-18 12:33 | Hospitalist Progress Note ---
Date of Service October 18, 2021 Assessment & Plan (1) Pancreatitis: Plan: - Reports this as a first episode -- H/O suspected pancreatic mass and follows with [facility] GI. Had ERCP/EUS with biopsies performed and a biliary and pancreatic stent placed. She ultimatel y passed the pancreatic stent. She is scheduled to have biliary stent removed as an outpatient on November 02 with plans to keep this appointment as is -- Previous EUS did show an 8 mm hypoechoic subepithelial lesion in the periampullary area suggestive of carcinoid but review of pathology shows this was benign - CT - findings of acute pancreatitis with no organized peripancreatic fluid collection; CBD stent in place and duct measuring up to 12 mm diameter with only minimal central intrahepatic biliary ductal dilation; gallbladder distended by otherwise normal in appearance; liver with multiple cysts and hepatic steatosis; small volume ascites; circumferentially thickened bladder wall; diverticulosis without diverticulitis - Leukocytosis is resolved; remains afebrile; Lipase trending down - Clear Liquid - will slowly advance diet pending tolerance and will reassess - Reduce LR to 100 mL/hr and continue pain regimen - CT with significant stool burden - Dulcolax AR x 1; pending diet advancement would benefit from further bowel regimen (2) Alcohol abuse: Plan: -Patient states she drinks 2-3 alcoholic beverages per day, has never experienced withdrawal symptoms from alcohol cessation; no current signs of withdrawal -Encourage ETOH cessation as likely to contribute to ongoing pancreatitis -Continue thiamine 100 mg daily and folic acid daily. (3) Chronic low back pain: Plan: -Continue Tylenol every 6h as needed. (4) Osteopenia: Plan: -Continue vitamin D3 as previously prescribed. (5) Elevated glucose: Plan: - Glucose 144 on admission but fasting AM today was 96 - No A1c in the system. Can have routine monitoring with PCP (6) DVT prophylaxis: Plan: -Lovenox 40 daily Plan: Await ful diet advancement and work on bowel regimen Plan for outpatient ERCP/EUS Once pain improved and diet advanced can discharge home - possible in next 1-2 days Admission and Anticipated Discharge Date Admission Date: October 16, 2021 Subjective No acute events overnight. Reports pain was doing well until she got up to walk around. Remains in the epigastric region and having bloating. Still hasnt moved her bowels. Taking small amounts of Jell-O and broth just didnt care for the broth. Labs are improving. Remains afebrile. Had some low O2 saturations while resting..possible from pain medication. Verbalizes no new complaints Review of Systems Review of Systems: All systems reviewed & are unremarkable except as noted in Subjective Physical Exam Physical Exam: PHYSICAL EXAM General Appearance: WDWN in NAD who is A&O x 3 HEENT: Head is normocephalic/atraumatic; Mucous membranes moist Neck: Supple; Trachea midline; Neg JVD Heart: RRR with no M/G/R Lungs: CTA in all lung seals bilaterally; Respirations unlabored; Neg accessory muscle use Abdomen: Soft,mild tenderness in epigastric region, mild distended; No guarding/rigidity; hypoactive BS x 4 quadrants Extremities: Neg cyanosis or edema Neurological: Speech clear; Gross motor/sensory function intact; Neg focal neurologic deficits Psychiatric: Appropriate mood/affect Skin: Normal Color; Warm/Dry Results & Data Results & Data ([facility]) Vital Signs (Past 12 Hours) Vital Signs Temp Pulse Resp BP Pulse Ox 10/18/21 07:16 36.8 C 88 18 128/75 97 PG Care Time/CCT Total # of Minutes Spent Total Time Spent with Patient: Total time spent is greater than 50% in coordination of care (as documented) at patient's floor/unit and/or counseling patient: Coding Level of Care Code 15083 Subseq Hosp Care Lvl 3 Diagnoses Pancreatitis K85.90 Acute pancreatitis complication: no infection or necrosis Chronicity: acute Pancreatitis type: unspecified pancreatitis type Alcohol abuse F10.10 Chronic low back pain M54.5; G89.29 Osteopenia M85.80 Elevated glucose R73.09 DVT prophylaxis Z29.9 (1) Pancreatitis Acute pancreatitis complication: no infection or necrosis Chronicity: acute Pancreatitis type: unspecified pancreatitis type Qualified Code(s): K85.90 - Acute pancreatitis without necrosis or infection, unspecified
[2021-10-18] MEDS: ENOXAPARIN INJ 40 MG/0.4 ML SYR SQ SCH (16:08)
[2021-10-18] MEDS ORDERED: POLYETHYLENE (MIRALAX) 17 GM PACK PO ONE (18:01)
[2021-10-18] MEDS: HYDROmorphone INJ 0.5 MG/0.5 ML SYR IV PRN (19:30)
[2021-10-19] MEDS: LACTATED RINGER'S 1,000 ML IV SCH ×3 (02:19→20:17)
[2021-10-19] MEDS: HYDROmorphone INJ 0.5 MG/0.5 ML SYR IV PRN ×2 (02:21→12:46)
[2021-10-19 07:57] LABS: Basophils # (auto) 0.01 K/uL (0-0.2); Basophils % (auto) 0.1 %; Eosinophils # (auto) 0.04 K/uL (0-0.5); Eosinophils % (auto) 0.5 %; Hematocrit (blood only) 35.1 % (37-47); Hemoglobin 11.8 g/dL (12.0-16.0); Immature Granulocytes # (auto) 0.02 K/uL (0.00-0.02); Immature Granulocytes % (auto) 0.2 %; Lymphocytes # (auto) 1.16 K/uL (1.2-3.4); Lymphocytes % (auto) 13.3 %; Mean Corpuscular Hgb Conc 33.6 g/dL (32-36); Mean Corpuscular Volume 101.2 fL (80-100); Mean Platelet Volume 9.6 fL (7.4-10.4); Monocytes # (auto) 1.15 K/uL (0.11-0.59); Monocytes % (auto) 13.2 %; Neutrophils # (auto) 6.35 K/uL (1.4-6.5); Neutrophils % (auto) 72.7 %; Platelet Count 126 K/uL (130-400); RDW Coefficient of Variation 12.4 % (11.5-14.5); RDW Standard Deviation 45.2 fL (36.4-46.3); Red Blood Count 3.47 M/uL (4.2-5.4); White Blood Count 8.73 K/uL (4.8-10.8)
[2021-10-19 08:25] LABS: Albumin Globulin Ratio 1.3 (0.9-2); Albumin Level 2.9 gm/dl (3.4-5.0); BUN Creatinine Ratio 11.1 (10-20); Bilirubin,Total 1.1 mg/dl (0.2-1.0); Calcium 8.2 mg/dl (8.5-10.1); Creatinine Clr Calc Pharmacy 142.2 ml/min; Est GFR (African American) 133.9 ml/min; Est GFR (Non-African American) 115.6 ml/min; Globulin 2.2 gm/dl (2.5-4.0); Total Protein 5.1 gm/dl (6.0-8.3)
[2021-10-19] MEDS: CHOLECALCIFEROL 1,000 UNITS 25 MCG TAB PO SCH (08:30)
[2021-10-19] MEDS: FAMOTIDINE 20 MG in SYRINGE 3 ML IV SCH ×2 (08:30→20:16)
[2021-10-19] MEDS: THIAMINE HCL 100 MG TAB PO SCH (08:31)
[2021-10-19] MEDS: FOLIC ACID 1 MG TAB PO SCH (08:31)
--- NOTE | 2021-10-19 09:30 | Gastroenterology Progress Note ---
Date of Service October 19, 2021 Assessment & Plan (1) RUQ abdominal pain: Plan: 61 year old female admitted w/ abd pain, imaging and labs concerning for acute pancreatitis recent EGD/EUS/ERCP reviewed. Is scheduled for ERCP as OP in October for stent removal. Lipase 190. Given normal LFTs, no plan for acute ERCP Keep OP ERCP as scheduled Clear liquids --> can advance to low fat as tolerated Continue maintenance fluids Antiemetics PRN Analgesia PRN Recommend ETOH cessation Can advance to low fat diet Will sign off. Thank you for allowing us to participate in the care of this patient. Please call with any acute changes, questions or concerns. Please see addendum below with additional recommendation from my supervising physician. Admission and Anticipated Discharge Date Admission Date: October 16, 2021 Supervising Physician Co-Signing Physician Notes I have personally seen and examined the patient with JOSE ELIAS Spivey. Her note reflects my exam and findings. I agree with her impression and plan. Plan for colonoscopy tomorrow after prep. Patient improved. Advance diet as tolerates. Out patient follow up. Donny Blakely M.D. Subjective Pt was seen and evaluated, chart reviewed. Abd pain is improving. No nausea, vomiting Has been ambulating Review of Systems Review of Systems: All systems reviewed & are unremarkable except as noted in HPI & below Physical Exam Constitutional: WD/WN, vitals as above Neck: trachea midline, no thyromegaly Respiratory: normal respiratory effort, lungs clear to auscultation Cardiovascular: Rate/Rhythm: regular rate and regular rhythm Skin: no rashes, warm and dry Results & Data ([facility]) Vital Signs (Past 12 Hours) Vital Signs Temp Pulse Resp BP Pulse Ox 10/19/21 08:42 36.8 C 91 H 18 128/80 95 Laboratory Results 10/19/21 10/19/21 Range/Units 07:41 07:41 WBC 8.73 (4.8-10.8) K/uL RBC 3.47 L (4.2-5.4) M/uL Hgb 11.8 L (12.0-16.0) g/dL Hct 35.1 L (37-47) % MCV 101.2 H (80-100) fL MCH 34.0 (25-34) pg MCHC 33.6 (32-36) g/dL RDW Std Deviation 45.2 (36.4-46.3) fL RDW Coeff of Philip 12.4 (11.5-14.5) % Plt Count 126 L (130-400) K/uL MPV 9.6 (7.4-10.4) fL Immature Gran % (Auto) 0.2 % Neut % (Auto) 72.7 % Lymph % (Auto) 13.3 % [place] % (Auto) 13.2 % Eos % (Auto) 0.5 % Baso % (Auto) 0.1 % Neut # (Auto) 6.35 (1.4-6.5) K/uL Lymph # (Auto) 1.16 L (1.2-3.4) K/uL [place] # (Auto) 1.15 H (0.11-0.59) K/uL Eos # (Auto) 0.04 (0-0.5) K/uL Baso # (Auto) 0.01 (0-0.2) K/uL Immature Gran # (Auto) 0.02 (0.00-0.02) K/uL Sodium 138 (136-145) mmol/L Potassium 3.0 L (3.5-5.1) mmol/L Chloride 100 (98-107) mmol/L Carbon Dioxide 33 H (21-32) mmol/L Anion Gap 5 (3-11) BUN 4 L (6-23) mg/dl Creatinine 0.36 L (0.6-1.2) mg/dl Est Cr Clr Drug Dosing 142.2 ml/min Est GFR ( Amer) 133.9 ml/min Est GFR (Non-Af Amer) 115.6 ml/min BUN/Creatinine Ratio 11.1 (10-20) Glucose 94 (70-99(Fasting)) mg/dl Calcium 8.2 L (8.5-10.1) mg/dl Total Bilirubin 1.1 H (0.2-1.0) mg/dl AST 20 (13-39) U/L ALT 11 (7-52) U/L Alkaline Phosphatase 33 L (34-104) U/L Total Protein 5.1 L (6.0-8.3) gm/dl Albumin 2.9 L (3.4-5.0) gm/dl Globulin 2.2 L (2.5-4.0) gm/dl Albumin/Globulin Ratio 1.3 (0.9-2) Lipase 68 (11-82) U/L
[2021-10-19] MEDS ORDERED: POTASSIUM CHLORIDE CRTAB 20 MEQ TABCR PO STA (14:48)
[2021-10-19] MEDS: ENOXAPARIN INJ 40 MG/0.4 ML SYR SQ SCH (15:20)
--- NOTE | 2021-10-19 18:18 | Hospitalist Progress Note ---
Date of Service October 19, 2021 Assessment & Plan (1) Pancreatitis: Plan: - Reports this as a first episode -- H/O suspected [facility] Had [facility]/EUS with biopsies performed and a biliary and pancreatic stent placed. She ultimatel y passed the pancreatic stent. She is scheduled to have biliary stent removed as an outpatient on November 02 with plans to keep this appointment as is -- Previous EUS did show an 8 mm hypoechoic subepithelial lesion in the periampullary area suggestive of carcinoid but review of pathology shows this was benign - CT - findings of acute pancreatitis with no organized peripancreatic fluid collection; CBD stent in place and duct measuring up to 12 mm diameter with only minimal central intrahepatic biliary ductal dilation; gallbladder distended by otherwise normal in appearance; liver with multiple cysts and hepatic steatosis; small volume ascites; circumferentially thickened bladder wall; diverticulosis without diverticulitis - Leukocytosis is resolved; remains afebrile; Lipase normalized - Low fat diet and monitor for tolerance - Reduce LR to 100 mL/hr and continue pain regimen - CT with significant stool burden - Dulcolax [place] x 1; pending diet advancement would benefit from further bowel regimen (2) Alcohol abuse: Plan: -Patient states she drinks 2-3 alcoholic beverages per day, has never experienced withdrawal symptoms from alcohol cessation; no current signs of withdrawal -Encourage ETOH cessation as likely to contribute to ongoing pancreatitis -Continue thiamine 100 mg daily and folic acid daily. (3) Chronic low back pain: Plan: -Continue Tylenol every 6h as needed. (4) Osteopenia: Plan: -Continue vitamin D3 as previously prescribed. (5) Elevated glucose: Plan: - Glucose 144 on admission but fasting AM today was 96 - No A1c in the system. Can have routine monitoring with PCP (6) DVT prophylaxis: Plan: -Lovenox 40 daily Plan: Await full diet advancement tolerance and work on bowel regimen Plan for outpatient ERCP/EUS Once pain improved and diet advanced can discharge home - possible in next 1-2 days Admission and Anticipated Discharge Date Admission Date: October 16, 2021 Subjective No acute events overnight. Reporting improvement in pain but still present. Mostly of the epigastric/LUQ region. Tolerating a full liquid diet and would like to try more solid foods and did advance diet for dinner and will monitor for tolerance. Lipase has normalized. She verbalizes no new complaints. Review of Systems Review of Systems: All systems reviewed & are unremarkable except as noted in Subjective Physical Exam Physical Exam: PHYSICAL EXAM General Appearance: WDWN in NAD who is A&O x 3 HEENT: Head is normocephalic/atraumatic; Mucous membranes moist Neck: Supple; Trachea midline; Neg JVD Heart: RRR with no M/G/R Lungs: CTA in all lung seals bilaterally; Respirations unlabored; Neg accessory muscle use Abdomen: Soft,mild tenderness in epigastric region, mild distended; No guarding/rigidity; hypoactive BS x 4 quadrants Extremities: Neg cyanosis or edema Neurological: Speech clear; Gross motor/sensory function intact; Neg focal neurologic deficits Psychiatric: Appropriate mood/affect Skin: Normal Color; Warm/Dry Results & Data Results & Data ([facility]) Vital Signs (Past 12 Hours) Vital Signs Temp Pulse Resp BP Pulse Ox 10/19/21 15:22 37.4 C 88 16 106/66 90 10/19/21 08:42 36.8 C 91 H 18 128/80 95 PG Care Time/CCT Total # of Minutes Spent Total Time Spent with Patient: Total time spent is greater than 50% in coordination of care (as documented) at patient's floor/unit and/or counseling patient: Coding Level of Care Code 94449 Subseq Hosp Care Lvl 3 Diagnoses Pancreatitis K85.90 Chronicity: acute Pancreatitis type: unspecified pancreatitis type Acute pancreatitis complication: no infection or necrosis Alcohol abuse F10.10 Chronic low back pain M54.5; G89.29 Osteopenia M85.80 Elevated glucose R73.09 DVT prophylaxis Z29.9 (1) Pancreatitis Chronicity: acute Pancreatitis type: unspecified pancreatitis type Acute pancreatitis complication: no infection or necrosis Qualified Code(s): K85.90 - Acute pancreatitis without necrosis or infection, unspecified
[2021-10-19] MEDS: traMADol HCL 50 MG TABLET PO PRN (18:44)
[2021-10-20] MEDS: traMADol HCL 50 MG TABLET PO PRN ×2 (03:56→12:11)
[2021-10-20] MEDS: FOLIC ACID 1 MG TAB PO SCH (07:54)
[2021-10-20] MEDS: CHOLECALCIFEROL 1,000 UNITS 25 MCG TAB PO SCH (07:54)
[2021-10-20] MEDS: LACTATED RINGER'S 1,000 ML IV SCH (07:55)
[2021-10-20] MEDS: THIAMINE HCL 100 MG TAB PO SCH (07:55)
[2021-10-20 07:56] LABS: Albumin Globulin Ratio 1.2 (0.9-2); BUN Creatinine Ratio 11.8 (10-20); Bilirubin,Total 0.9 mg/dl (0.2-1.0); Calcium 8.4 mg/dl (8.5-10.1); Creatinine Clr Calc Pharmacy 150.6 ml/min; Est GFR (African American) 136.5 ml/min; Est GFR (Non-African American) 117.8 ml/min; Globulin 2.6 gm/dl (2.5-4.0); Potassium 3.1 mmol/L (3.5-5.1); Total Protein 5.6 gm/dl (6.0-8.3)
[2021-10-20] MEDS: FAMOTIDINE 20 MG in SYRINGE 3 ML IV SCH (09:52)
[2021-10-20] MEDS: POLYETHYLENE (MIRALAX) 17 GM PACK PO PRN (10:00)
--- NOTE | 2021-10-20 19:10 | Discharge Summary ---
Date of Service October 20, 2021 Admission HPI Per Admitting Provider Patient is a 61-year-old female with a past medical history of recent EGD/EUS/ERCP in September with concern for distal biliary lesion and PD/CBD stent placed who presents today with abdominal pain. Last evening around 11 PM, patient began to experience severe epigastric pain associated with nausea and vomiting. The pain is stabbing, does not radiate however it has been persistent since its onset. Patient states she has not been able to keep any food or liquids down since last evening and has experienced chills over the last 12 hours, but denies fever, myalgias, diarrhea, constipation, melena, or hematochezia. Denies recent abdominal trauma. Patient notes she consumed 3 alcoholic beverages earlier that day, along with ribs and macaroni and cheese. Principal Diagnosis Pancreatitis Discharge Exam PHYSICAL EXAM General Appearance: WDWN in NAD who is A&O x 3 HEENT: Head is normocephalic/atraumatic; Mucous membranes moist Neck: Supple; Trachea midline; Neg JVD Heart: RRR with no M/G/R Lungs: CTA in all lung seals bilaterally; Respirations unlabored; Neg accessory muscle use Abdomen: Soft, no tenderness, not distended; No guarding/rigidity; hypoactive BS x 4 quadrants Extremities: Neg cyanosis or edema Neurological: Speech clear; Gross motor/sensory function intact; Neg focal neurologic deficits Psychiatric: Appropriate mood/affect Skin: Normal Color; Warm/Dry Discharge Data Allergies Allergy/AdvReac Type Severity Reaction Status Date / Time No Known Allergies Allergy Verified 10/16/21 08:11 Consultations 10/16/21 09:58 ED Decision to Admit Stat Ordered Studies Abdomen/Pelvis CT 10/16/21 08:03 CT SCAN OF THE ABDOMEN AND PELVIS WITH IV CONTRAST CLINICAL HISTORY: Generalized abdominal pain. Biliary stent. COMPARISON STUDY: Abdominal CT dated 06/05/2017. TECHNIQUE: Following the IV administration of 94 cc of Optiray 320, CT scan of the abdomen and pelvis is performed from the lung bases to the proximal femora. Images are reviewed in the axial, sagittal, and coronal planes. IV contrast was administered without complication. A dose lowering technique was utilized adhering to the principles of ALARA. CT DOSE: 263.59 mGy.cm FINDINGS: Lung bases: The heart is top normal in size and without pericardial effusion. The lung bases are clear noting dependent atelectasis. There is a small hiatal hernia. Liver: The contrast-enhanced liver is normal in size and contour. The liver demonstrates diffusely diminished attenuation indicating steatosis. There is minimal central intrahepatic biliary ductal dilatation. The hepatic veins and portal veins are patent. There are numerous hepatic cysts which measure up to 5 cm. Gallbladder: The gallbladder is distended but otherwise normal in appearance. A stent is in place from the mid common bile duct to the duodenum. The common bile duct is dilated measuring 1.2 cm in diameter. Spleen: Normal in size and attenuation. Pancreas: The pancreas appears edematous. Significant infiltration and fluid seen around the pancreatic body and tail, typical for acute pancreatitis. The gland enhances throughout. The duct is normal in caliber. No organized peripancreatic fluid collection is seen. The splenic vein is patent. Adrenal glands: Unremarkable. Kidneys: The contrast enhanced kidneys are normal in size and without hydronephrosis. The kidneys enhance symmetrically. There are numerous subcentimeter cortical hypodensities. These likely represent cysts but are too small for definitive characterization. Left-sided perinephric fluid is likely related to adjacent pancreatitis. Abdominal vasculature: The abdominal aorta is normal in course and caliber noting mild atherosclerotic calcification. Bowel: There is postoperative change from sigmoid colon resection with colocolonic anastomosis. No bowel obstruction is seen. There is moderate diverticulosis of the remaining colon without CT evidence of acute diverticulitis. A small bowel anastomosis is seen in the right lower quadrant. The appendix is normal as visualized. Peritoneum: There is no intraperitoneal free air. There is trace perisplenic ascites as well as a small volume of pelvic ascites. There are large fat- containing umbilical and supraumbilical hernias. Lymphadenopathy: None. Pelvic viscera: The bladder is mildly distended and appears circumferentially thick walled. The uterus is heterogeneous and fibroids are suspected. No adnexal lesion is seen. Numerous phleboliths are observed in the pelvis. Skeletal structures: The skeletal structures are osteopenic. There is mild lumbosacral spondylosis. There is a mild chronic appearing superior endplate compression deformity of L2. No lytic or blastic lesions are seen. There are chronic/healed right-sided rib fractures. IMPRESSION: 1. Findings are typical for acute pancreatitis. Correlate with clinical findings and serum amylase/lipase levels. 2. The gland enhances throughout and there is no organized peripancreatic fluid collection identified. 3. A common bile duct stent is in place. The common bile duct is dilated measuring up to 12 mm diameter. There is only minimal central intrahepatic biliary ductal dilatation. 4. The gallbladder is distended but otherwise normal in appearance. 5. Hepatic steatosis. 6. Small volume ascites. 7. The bladder wall appears circumferentially thickened. Correlate with clinical findings and urinalysis. 8. Diverticulosis of the remaining colon without CT evidence of acute diverticulitis. 9. Additional findings as above. ACT 112: Negative or not required by law. Electronically signed by: Oh Betancur M.D. 10/16/2021 9:33 AM Hospital Course (1) Pancreatitis: - Reports this as a first episode -- H/O suspected pancreatic mass and follows with [facility]. Had ERCP/EUS with biopsies performed and a biliary and pancreatic stent placed. She ultimately passed the pancreatic stent. She is scheduled to have biliary stent removed as an outpatient on November 02 with plans to keep this appointment as is -- Previous EUS did show an 8 mm hypoechoic subepithelial lesion in the periampullary area suggestive of carcinoid but review of pathology shows this was benign - CT - findings of acute pancreatitis with no organized peripancreatic fluid collection; CBD stent in place and duct measuring up to 12 mm diameter with only minimal central intrahepatic biliary ductal dilation; gallbladder distended by otherwise normal in appearance; liver with multiple cysts and hepatic steatosis; small volume ascites; circumferentially thickened bladder wall; diverticulosis without diverticulitis - Leukocytosis is resolved; remains afebrile; Lipase normalized; LFTs WNL - Low fat diet - Hydrated with fluids during admission - can continue oral fluids - CT with significant stool burden - Did begin moving bowels more regularly and reports improvement with pain. Suspect some lingering pain is more constipation related given improvement after bowel movement (2) Alcohol abuse: -Patient states she drinks 2-3 alcoholic beverages per day, has never experienced withdrawal symptoms from alcohol cessation; no signs of withdrawal during admission -Encourage ETOH cessation as likely to contribute to ongoing pancreatitis -Continue thiamine 100 mg daily and MVI (3) Chronic low back pain: -Continue Tylenol every 6h as needed. (4) Osteopenia: -Continue vitamin D3 as previously prescribed. (5) Elevated glucose: - Glucose 144 on admission but fasting AM today was 96 - No A1c in the system. Can have routine monitoring with PCP (6) DVT prophylaxis: -Lovenox 40 daily Tolerating a diet without issue. Moving bowels which are improving symptoms Plan for outpatient ERCP/EUS for current CBD stent May benefit from outpatient HIDA especially if ongoing issues with pancreatitis Once pain improved and diet advanced can discharge home - possible in next 1-2 days Total Time Total Time Spent Total Time Spent (In Minutes): Spent greater than 30 minutes preparing patient for discharge. This includes discussion with patient/family, assessment, intervention, medication reconciliation, and coordination of care. Discharge Plan Discharge Items Patient Disposition: Home - Self-Care Reason For Visit: PANCREATITIS Discharge Diagnosis: Pancreatitis Activity: Resume your previous activity Non-emergency contact: Primary Care Provider Call non-emergency contact if: you have any medication questions, your symptoms worsen and you have a fever Follow-up/Referrals: Teagan Deshpande MD [Primary Care Provider] - 10/26/21 11:30 am Diet: Low Fat Addtl Attending Provider Instructions: Pancreatitis: - Thankfully your pancreatitis is improving. The pancreas enzyme is back to normal which is wonderful. - Recommend to read over the information handouts in this discharge packet on dietary restrictions and things to avoid - Please follow-up with your GI doctors as previously planned for your stent removal on November 02 - Recommend to maintain a good bowel regimen. You can use Miralax over the counter every day for a few days then just as needed. - Recommend avoidance of alcohol. Especially while you are recovering but also alcohol could cause this to happen again, even in small amounts. - Recommend a low fat diet as outlined in the discharge paperwork Home Medications: - Continue as previously prescribed Pending Studies at Discharge: No Stand-Alone Forms: [facility], Smoking Cessation Medications and DC Order Prescriptions: Continued thiamine HCl (vitamin B1) 100 mg tablet 100 mg PO DAILY Qty: 30 RF: 0 acetaminophen [Tylenol Extra Strength] 500 mg Tablet 1,000 mg PO Q6H PRN (Reason: Pain) RF: 0 multivitamin Tablet 1 tab PO PM RF: 0 cholecalciferol (vitamin D3) [Vitamin D3] 25 mcg (1,000 unit) Capsule 1,000 unit PO QAM RF: 0 Probiotic 3 billion cell Capsule 3,000 mmu cells PO QAM RF: 0 No Action tramadol 50 mg tablet 50 mg PO Q4H PRN (Reason: pain) Qty: 20 RF: 0 Discharge Orders: Discharge Order (Routine); Ordered 10/20/21 Ordered By: Olivia Herrera/Other Patient Handouts: Understanding Pancreatitis, Pancreatitis Acute Dc, ED Pancreatitis Admission Data Admit Date/Time: 10/16/21 11:10 Attending Provider: Fortino Baker Admit Provider: Coy Valenzuela Primary Care Provider: Teagan Deshpande Other Providers: Coy Valenzuela Other Interventions: Discharge Summary Assessment (RN) Last Done: 10/20/21 17:23 Supervising Physician Co-Signing Physician Notes I personally saw and examined the patient. I verified all bennett points and agree with Olivia Ybarra PA-C with the following exceptions and/or additions: 61 year old female admission for alcohol pancreatitis O/E No abdominal pain on palpation, no respiratory distress A/P Alcohol pancreatitis - medically stable for discharge. Importance of abstaining from alcohol discussed. Coding Level of Care Code D/C DAY MANAGEMENT >30 MINS Diagnoses Pancreatitis K85.90 Acute pancreatitis complication: no infection or necrosis Chronicity: acute Pancreatitis type: unspecified pancreatitis type Alcohol abuse F10.10 Chronic low back pain M54.5; G89.29 Osteopenia M85.80 Elevated glucose R73.09 DVT prophylaxis Z29.9
== END 2021-10-20 18:13 | disposition home or self-care (01) | DRG 439 ==
LOC: ED 07:42 → SUATTDRO 11:10 → EDINP 11:10 → 3W 15:32
DX: K76.89 Other specified diseases of liver; F10.10 Alcohol abuse, uncomplicated; M54.50 Low back pain, unspecified; G89.29 Other chronic pain; Z96.89 Presence of other specified functional implants; R18.8 Other ascites; K76.0 Fatty (change of) liver, not elsewhere classified; Z87.891 Personal history of nicotine dependence; K85.20 Alcohol induced acute pancreatitis without necrosis or infection; K57.90 Diverticulosis of intestine, part unspecified, without perforation or abscess without bleeding; M85.80 Other specified disorders of bone density and structure, unspecified site; Z79.899 Other long term (current) drug therapy

== ENCOUNTER 2023-02-13 02:14 | Inpatient (IN) ==
--- NOTE | 2023-02-13 02:21 | Emergency Department Note ---
History of Present Illness General Chief complaint: Abdominal Pain Stated complaint: SEVERE ABDOMINAL PAIN Time Seen by Provider: 02/13/23 02:20 History of Present Illness Maximum Pain Intensity: 7 This 62-year-old female patient presents to the emergency department for evaluation of right upper quadrant abdominal pain that started yesterday. She has a history of pancreatitis and states that it feels like it could be pancreatitis again. Initially it started as mild cramping in the RUQ, but now is very sharp pain in the RUQ and epigastric area. Initially intermittent, but now constant. Nausea, but no vomiting. She rates her pain as sharp and 7/10. Took De[place] and Tylenol PM without any improvement of her symptoms. Has been moving her bowels well per patient with her last BM yesterday morning. Denies urinary symptoms. No chest pain or SOB. No fevers. No yellowing of her eyes or skin. She had a right upper quadrant ultrasound on 01/24/2023 that showed no evidence of acute cholecystitis. There is prominence of the common bile duct and choledocholithiasis cannot be entirely excluded. If there is concern, MRCP can be performed. Hepatic steatosis. Numerous hepatic cysts are seen. She has an EUS scheduled on 02/25/23 with [facility] in [place] for further evaluation. Her previous episode of pancreatitis was after stenting for "sludge in her gallbladder and bile ducts" on an ERCP in Aug 2021 per patient. She has decreased her alcohol use to about 10-11 alcoholic drinks a week since her pancreatitis. Home Medications Medication Instructions Recorded Confirmed Type acetaminophen 500 mg tablet 1,000 mg PO Q6H PRN Pain 08/08/19 02/13/23 History (Tylenol Extra Strength) cholecalciferol (vitamin D3) 25 1,000 unit PO QAM 08/08/19 02/13/23 History mcg (1,000 unit) capsule (Vitamin D3) lactobacillus combination no.4 3 3,000 mmu cells PO QAM 08/08/19 02/13/23 History billion cell capsule (Probiotic) multivitamin 1 tab PO PM 08/08/19 02/13/23 History thiamine HCl (vitamin B1) 100 mg 100 mg PO DAILY #30 tabs 08/11/19 02/13/23 Rx tablet Allergies Allergy/AdvReac Type Severity Reaction Status Date / Time No Known Allergies Allergy Verified 01/17/23 09:03 Past Med/Surg History Medical History Acute pancreatitis Chronic low back pain Common bile duct stricture Diverticulosis H/O diverticulitis of colon Hematoma of left breast Lumbar radiculopathy Mammogram abnormal Osteopenia Ovarian cyst, left Peroneal neuropathy White coat syndrome with high blood pressure but without hypertension Surgical History History of low anterior resection of rectum S/P colonoscopy January 2013 repeat 10yrs Status post endoscopic retrograde cholangiopancreatography Family History Other Cancer No pertinent family history Denies family history of Ovarian cancer Prostate cancer Myocardial infarction Breast cancer Colorectal cancer Social History Smoking Status: Former smoker Tobacco Type: Cigarettes packs per day: 0.25; Hx Alcohol Use: Yes Alcohol type: beer and wine Hx Substance Use: No Preferred Language: Chinese Communication Ability: Effective Brush Cutter Required: No Beliefs That Will Affect Care: None marital status: Current Living Situation: Spouse How many Children do You have: 0 Feels Safe at Home: Yes during the past year weight has: remained stable Assistive Devices: None Review of Systems See HPI for pertinent positives & negatives. Physical Exam Vital Signs Vital Signs - 24 hr 02/13/23 02:15 02/13/23 02:55 02/13/23 02:54 Temperature 36.2 C L Temperature Source Temporal Artery Scan Pulse Rate 99 H 71 Pulse Rate [Apical] 71 Pulse Rate from SpO2 Sensor Respiratory Rate 18 16 Respiratory Effort / Characteristics Non-Labored Spontaneous Respiratory Depth Normal Blood Pressure 148/92 H Blood Pressure [Right Arm] 130/77 Blood Pressure Mean 110 Blood Pressure Mean [Right Arm] 94 Blood Pressure Position Sitting Pulse Oximetry 99 97 Oxygen Delivery Method Room Air Room Air Sepsis Recent Fever Within 48 Hours No Sepsis New/Unexplained Change in Mental Status N/A Sepsis Action Taken by Nursing No Action Required 02/13/23 04:02 02/13/23 02:55 02/13/23 03:30 Temperature Temperature Source Pulse Rate 71 73 78 Pulse Rate [Apical] Pulse Rate from SpO2 Sensor 73 79 Respiratory Rate 18 17 17 Respiratory Effort / Characteristics Respiratory Depth Blood Pressure 130/77 Blood Pressure [Right Arm] Blood Pressure Mean 94 Blood Pressure Mean [Right Arm] Blood Pressure Position Pulse Oximetry 98 97 97 Oxygen Delivery Method Sepsis Recent Fever Within 48 Hours Sepsis New/Unexplained Change in Mental Status Sepsis Action Taken by Nursing 02/13/23 04:01 Temperature Temperature Source Pulse Rate 74 Pulse Rate [Apical] Pulse Rate from SpO2 Sensor 75 Respiratory Rate 16 Respiratory Effort / Characteristics Respiratory Depth Blood Pressure Blood Pressure [Right Arm] Blood Pressure Mean Blood Pressure Mean [Right Arm] Blood Pressure Position Pulse Oximetry 99 Oxygen Delivery Method Sepsis Recent Fever Within 48 Hours Sepsis New/Unexplained Change in Mental Status Sepsis Action Taken by Nursing VITALS: Vitals are noted on the nurse's note and reviewed by myself. GENERAL: The patient appears in pain, but is non toxic, no acute distress, non- diaphoretic. SKIN: No jaundice. Capillary refill <2 sec. EARS: External auditory canals clear, tympanic membranes pearly richter without erythema or effusion bilaterally. EYES: PERRLA. EOMI. Conjunctivae without injection, sclerae without icterus. NOSE: Patent without discharge. MOUTH: Mucous membranes moist. Uvula midline. Airway patent. NECK: Supple without nuchal rigidity. HEART: Regular rate and rhythm without murmurs gallops or rubs. LUNGS: Clear to auscultation bilaterally without wheezes, rales or rhonchi. No retractions or accessory muscle use. ABDOMEN: Positive bowel sounds x 4. Normal tympanic percussion. Soft, tender to palpation in the right upper quadrant and epigastric area. The patient has an umbilical hernia as well as an incisional hernia without incarceration or strangulation. The hernias are easily reduced. No other masses or organomegaly. Page sign negative. No guarding or rebound tenderness. No focal RLQ or LLQ tenderness. Course Administered Medications Discontinued Medications Sodium Chloride (Nss 1000ml) 1,000 mls @ 999 mls/hr IV .Q1H1M STA Stop: 02/13/23 03:33 Last Admin: 02/13/23 02:46 Dose: 999 mls/hr Documented By: HILL Sodium Chloride (Nss) 500 mls @ 999 mls/hr IV .Q31M ONE Stop: 02/13/23 05:40 Last Admin: 02/13/23 05:35 Dose: 999 mls/hr Documented By: MAS Ioversol (Optiray 320 500ml) 100 ml IV ONCE ONE Stop: 02/13/23 03:15 Last Admin: 02/13/23 03:15 Dose: 90 ml Documented By: FILIPE Ketorolac Tromethamine (Ketorolac Tromethamine 15 Mg/Ml Vial) 15 mg IV NOW STA Stop: 02/13/23 02:34 Last Admin: 02/13/23 02:46 Dose: 15 mg Documented By: HILL Morphine Sulfate (Morphine Sulfate 4 Mg/Ml 1 Ml Carp\\Vial) 4 mg IV NOW STA Stop: 02/13/23 05:11 Last Admin: 02/13/23 05:24 Dose: 4 mg Documented By: JAMES Ondansetron HCl (Ondansetron Inj 2 Mg/Ml 2 Ml Vial) 4 mg IV NOW STA Stop: 02/13/23 02:34 Last Admin: 02/13/23 02:46 Dose: 4 mg Documented By: HILL Medical Decision Making Differential Diagnosis Differential diagnosis includes hepatitis, pancreatitis, cholecystitis, cholelithiasis, appendicitis, kidney stone, pyelonephritis, UTI, gastritis, gastroenteritis, mesenteric adenitis, obstruction, constipation, hernia, abdominal abscess, perforation, diverticulitis, IBD, ischemic colitis, abdominal aortic aneurysm, ovarian cyst, ovarian torsion, or others. Laboratory Data Attestation: I reviewed the patient's lab results. 02/13/23 02:50 02/13/23 02:50 Lab Results 02/13/23 02/13/23 02/13/23 Range/Units 02:50 02:50 03:59 WBC 9.77 (4.8-10.8) K/ul RBC 4.04 L (4.20-5.40) M/uL Hgb 13.8 (12.0-16.0) g/dl Hct 39.2 (37.0-47.0) % MCV 97.0 (80.0-100.0) fL MCH 34.2 H (25.0-34.0) pg MCHC 35.2 (32.0-36.0) g/dL RDW Std Deviation 39.3 (36.4-46.3) fL RDW Coeff of Philip 10.9 L (11.5-14.5) % Plt Count 291 (130-400) K/uL MPV 9.5 (9.4-12.4) fL Immature Gran % (Auto) 0.2 % Neut % (Auto) 72.2 % Lymph % (Auto) 19.8 % Story % (Auto) 6.9 % Eos % (Auto) 0.5 % Baso % (Auto) 0.4 % Neut # (Auto) 7.06 H (1.40-6.50) K/uL Lymph # (Auto) 1.93 (1.2-3.4) K/uL Story # (Auto) 0.67 H (0.11-0.59) K/uL Eos # (Auto) 0.05 (0-0.50) K/uL Baso # (Auto) 0.04 (0-0.2) K/uL Immature Gran # (Auto) 0.02 (0.01-0.20) K/uL Sodium 136 (136-145) mmol/L Potassium 3.5 (3.5-5.1) mmol/L Chloride 97 L (98-107) mmol/L Carbon Dioxide 30 (21-32) mmol/L Anion Gap 9 (3-11) BUN 9 (6-23) mg/dl Creatinine 0.57 L (0.6-1.2) mg/dl Est Cr Clr Drug Dosing 85.8 ml/min Est GFR ( Amer) 114.3 ml/min Est GFR (Non-Af Amer) 98.7 ml/min BUN/Creatinine Ratio 15.8 (10-20) Glucose 120 H (70-99(Fasting)) mg/dl Calcium 10.5 H (8.6-10.3) mg/dl Total Bilirubin 1.1 H (0.2-1.0) mg/dl AST 25 (13-39) U/L ALT 22 (7-52) U/L Alkaline Phosphatase 55 (34-104) U/L Troponin I High Sens 4.1 (0-14) pg/ml Total Protein 7.2 (6.0-8.3) gm/dl Albumin 4.5 (3.4-5.0) gm/dl Globulin 2.7 (2.5-4.0) gm/dl Albumin/Globulin Ratio 1.7 (0.9-2) Amylase 53 (25-115) U/L Lipase 12 (11-82) U/L Urine Color Yellow Urine Appearance Clear (Clear) Urine pH 8.5 H (4.5-7.5) Ur Specific Beecher 1.015 (1.000-1.030) Urine Protein Negative (Negative) Urine Glucose (UA) Negative (Negative) Urine Ketones 2+ H (Negative) Urine Blood Negative (Negative) Urine Nitrite Negative (Negative) Urine Bilirubin Negative (Negative) Urine Urobilinogen Negative (Negative) Ur Leukocyte Esterase Negative (Negative) Imaging Data Attestation: I personally reviewed and interpreted this imaging study as follows: My Impression: Chest x-ray was interpreted by myself and shows no acute cardiopulmonary etiology. Radiologist's Impression: Abdomen/Pelvis CT 02/13/23 02:33 Exam(s): CT ABDOMEN + PELVIS With Contrast IV Amt: 90 ML OPTIRAY 320 EXAM: CT Abdomen and Pelvis With Intravenous Contrast CLINICAL HISTORY: Reason for exam: RUQ and epigastric abdominal pain. TECHNIQUE: Axial computed tomography images of the abdomen and pelvis with intravenous contrast. CTDI is 10.44 mGy and DLP is 472.91 mGy-cm. Automated exposure control was utilized for the study. A dose lowering technique was utilized adhering to the principles of ALARA. CONTRAST: Patient received 90 ML OPTIRAY 320 of IV contrast COMPARISON: 10/16/21 FINDINGS: Lung bases: Unremarkable. No mass. No consolidation. ABDOMEN: Liver: There are multiple hepatic cysts, the largest 1 measuring up to 5.3 cm in diameter. Gallbladder and bile ducts: Unremarkable. No calcified stones. No ductal dilation. Pancreas: Unremarkable. No mass. No ductal dilation. Spleen: Unremarkable. No splenomegaly. Adrenals: Unremarkable. No mass. Kidneys and ureters: There are multiple renal cysts measuring up to 9 mm in diameter. No hydronephrosis. Stomach and bowel: Moderately dilated small bowel loops seen in the abdomen and pelvis with transition point located in the pelvis on axial image 53, series 2. The distal ileal loops are decompressed. PELVIS: Appendix: No findings to suggest acute appendicitis. Bladder: Unremarkable. No mass. Reproductive: Unremarkable as visualized. ABDOMEN and PELVIS: Intraperitoneal space: There is small volume of abdominal and pelvic ascites. Bones/joints: No acute fracture. No dislocation. Soft tissues: There is mild edema seen in the small bowel mesentery. Omental fat-containing midline ventral hernia measuring 3.9 cm in diameter. Omental fat-containing umbilical hernia measuring up to 3.1 cm in diameter. Vasculature: Unremarkable. No abdominal aortic aneurysm. Lymph nodes: Unremarkable. No enlarged lymph nodes. IMPRESSION: Partial distal small bowel obstruction Electronically signed by: Aleksandr Piña MD 02/13/23 05:03 AM MDM Narrative I examined the patient. I reviewed the patient's recent right upper quadrant ultrasound as above. An IV lock was placed and labs were drawn. She was given 1 L normal saline solution bolus. She was given Toradol 15 mg IV followed by morphine 4 mg IV with improvement of her pain. She was also given Zofran 4 mg IV for nausea. CBC without leukocytosis or anemia. Total bilirubin 1.1, but CMP otherwise without significant abnormalities. Amylase and lipase were normal. High- sensitivity troponin normal. Chest x-ray is interpreted by myself and shows no acute cardiopulmonary etiology. Radiology report still pending. CT scan of the abdomen and pelvis with IV contrast was reviewed by myself and read by radiology as above and shows a partial distal small bowel obstruction. The patient is not vomiting so NG tube is not needed at this time. The patient has been NPO in the ER and will remain NPO. The patient stated that she had been moving her bowels well with her last bowel movement yesterday. I spoke with the on-call hospitalist who agreed to admit the patient for further evaluation and treatment of the partial SBO. Please refer to their dictation for further details. The patient's care was transferred in stable condition. Impression & Plan Partial small bowel obstruction, Acute upper abdominal pain Discharge Plan Visit Data Chief Complaint: Abdominal Pain Stated Complaint: SEVERE ABDOMINAL PAIN ED Provider: Kaylah Colemna ED Midlevel Provider: Carolann Mantilla Discharge Problem: Partial small bowel obstruction, Acute upper abdominal pain Patient Disposition: Admitted As Inpatient Condition: Good Forms Stand Alone Forms: My [employer] Prescriptions Prescriptions: No Action thiamine HCl (vitamin B1) 100 mg tablet 100 mg PO DAILY Qty: 30 0RF acetaminophen [Tylenol Extra Strength] 500 mg Tablet 1,000 mg PO Q6H PRN (Reason: Pain) multivitamin Tablet 1 tab PO PM cholecalciferol (vitamin D3) [Vitamin D3] 25 mcg (1,000 unit) Capsule 1,000 unit PO QAM Probiotic 3 billion cell Capsule 3,000 mmu cells PO QAM Referrals Referrals: Teagan Deshpande MD [Primary Care Provider] -
[2023-02-13] MEDS ORDERED: ONDANSETRON INJ 2 MG/ML 2 ML VIAL IV STA (02:33)
[2023-02-13] MEDS ORDERED: KETOROLAC TROMETHAMINE 15 MG/ML VIAL IV STA (02:33)
[2023-02-13] MEDS ORDERED: SODIUM CHLORIDE 0.9% 1000ML 1,000 ML IV STA (02:33)
[2023-02-13 03:11] LABS: Basophils # (auto) 0.04 K/uL (0-0.2); Basophils % (auto) 0.4 %; Eosinophils # (auto) 0.05 K/uL (0-0.50); Eosinophils % (auto) 0.5 %; Hematocrit (blood only) 39.2 % (37.0-47.0); Hemoglobin 13.8 g/dl (12.0-16.0); Immature Granulocytes # (auto) 0.02 K/uL (0.01-0.20); Immature Granulocytes % (auto) 0.2 %; Lymphocytes # (auto) 1.93 K/uL (1.2-3.4); Lymphocytes % (auto) 19.8 %; Mean Corpuscular Hemoglobin 34.2 pg (25.0-34.0); Mean Corpuscular Hgb Conc 35.2 g/dL (32.0-36.0); Mean Platelet Volume 9.5 fL (9.4-12.4); Monocytes # (auto) 0.67 K/uL (0.11-0.59); Monocytes % (auto) 6.9 %; Neutrophils # (auto) 7.06 K/uL (1.40-6.50); Neutrophils % (auto) 72.2 %; Platelet Count 291 K/uL (130-400); RDW Coefficient of Variation 10.9 % (11.5-14.5); RDW Standard Deviation 39.3 fL (36.4-46.3); Red Blood Count 4.04 M/uL (4.20-5.40); White Blood Count 9.77 K/ul (4.8-10.8)
[2023-02-13] MEDS ORDERED: OPTIRAY 320 500ml IV ONE (03:14)
[2023-02-13 03:27] LABS: Albumin Globulin Ratio 1.7 (0.9-2); Albumin Level 4.5 gm/dl (3.4-5.0); BUN Creatinine Ratio 15.8 (10-20); Bilirubin,Total 1.1 mg/dl (0.2-1.0); Calcium 10.5 mg/dl (8.6-10.3); Creatinine Clr Calc Pharmacy 85.8 ml/min; Est GFR (African American) 114.3 ml/min; Est GFR (Non-African American) 98.7 ml/min; Globulin 2.7 gm/dl (2.5-4.0); Potassium 3.5 mmol/L (3.5-5.1); Total Protein 7.2 gm/dl (6.0-8.3)
[2023-02-13 04:55] LABS: Appearance Urine Clear (Clear); Bilirubin Urine Negative (Negative); Blood Urine Negative (Negative); Color Urine Yellow; Glucose Urine UA Negative (Negative); Ketones Urine 2+ (Negative); Leukocyte Esterase Urine Negative (Negative); Nitrite Urine Negative (Negative); Protein Urine Negative (Negative); Specific Gravity Urine 1.015 (1.000-1.030); Urobilinogen Urine Negative (Negative); pH Urine 8.5 (4.5-7.5)
--- NOTE | 2023-02-13 05:04 | CT Scan Report ---
Exam(s): CT ABDOMEN + PELVIS With Contrast IV Amt: 90 ML OPTIRAY 320 EXAM: CT Abdomen and Pelvis With Intravenous Contrast CLINICAL HISTORY: Reason for exam: RUQ and epigastric abdominal pain. TECHNIQUE: Axial computed tomography images of the abdomen and pelvis with intravenous contrast. CTDI is 10.44 mGy and DLP is 472.91 mGy-cm. Automated exposure control was utilized for the study. A dose lowering technique was utilized adhering to the principles of ALARA. CONTRAST: Patient received 90 ML OPTIRAY 320 of IV contrast COMPARISON: 10/16/21 FINDINGS: Lung bases: Unremarkable. No mass. No consolidation. ABDOMEN: Liver: There are multiple hepatic cysts, the largest 1 measuring up to 5.3 cm in diameter. Gallbladder and bile ducts: Unremarkable. No calcified stones. No ductal dilation. Pancreas: Unremarkable. No mass. No ductal dilation. Spleen: Unremarkable. No splenomegaly. Adrenals: Unremarkable. No mass. Kidneys and ureters: There are multiple renal cysts measuring up to 9 mm in diameter. No hydronephrosis. Stomach and bowel: Moderately dilated small bowel loops seen in the abdomen and pelvis with transition point located in the pelvis on axial image 53, series 2. The distal ileal loops are decompressed. PELVIS: Appendix: No findings to suggest acute appendicitis. Bladder: Unremarkable. No mass. Reproductive: Unremarkable as visualized. ABDOMEN and PELVIS: Intraperitoneal space: There is small volume of abdominal and pelvic ascites. Bones/joints: No acute fracture. No dislocation. Soft tissues: There is mild edema seen in the small bowel mesentery. Omental fat-containing midline ventral hernia measuring 3.9 cm in diameter. Omental fat-containing umbilical hernia measuring up to 3.1 cm in diameter. Vasculature: Unremarkable. No abdominal aortic aneurysm. Lymph nodes: Unremarkable. No enlarged lymph nodes. IMPRESSION: Partial distal small bowel obstruction Electronically signed by: Aleksandr Piña MD 02/13/23 05:03 AM
[2023-02-13 05:09] LABS: Troponin I High Sensitivity 4.1 pg/ml (0-14)
[2023-02-13] MEDS ORDERED: MoRPHine SULFATE 4 MG/ML 1 ML CARP\\VIAL IV STA (05:10)
[2023-02-13] MEDS ORDERED: SODIUM CHLORIDE 0.9% 500 ML IV ONE (05:10)
--- NOTE | 2023-02-13 05:34 | History & Physical Report ---
Date of Service February 13, 2023 Assessment & Plan (1) Small bowel obstruction: Plan: Presented with epigastric abdominal pain and nausea CTAP with evidence of partial SBO Last BM yesterday NPO for now with IVF, IV pain medications as needed NGT deferred for now but did discuss possibility of needing it with patient, she agrees if necessary General Surgery consulted, appreciate recs (2) Incisional hernia without obstruction or gangrene: Plan: Has seen Dr. Miguel Ángel Logan for these in the past with intention to surgically correct, as she notes they are painful at times Hernias are reducible on exam Gen Surg consult as above (3) Alcohol use disorder: Plan: History of alcohol use, about 10 alcoholic beverages per week at this time per patient history Has a history of alcohol-related pancreatitis (also in the setting of recent ERCP) AWSS at risk protocol ordered Continue thiamine and folic acid supplements IV for now (4) Hypercalcemia: Plan: Noted on labwork, however ruled out, as corrected Ca for albumin is 10.1 which is within normal range Plan Med/Surg admission FULL CODE NPO with IVF Low risk for DVT, ambulate on demand History of Present Illness Chief Complaint: abdominal pain Primary Care Provider: Teagan Deshpande MD 62-year-old female past medical history significant for alcohol use disorder, history of common bile duct stricture s/p ERCP with sphincterotomy and negative pathology x2, pancreatitis who presented for 1 day of abdominal pain with associated nausea. Denies fevers, emesis, chest pain, SOB. Reports that pancreatitis in the past that felt similar, and since the pain was worsening she proceeded to the ER. She notes a small BM yesterday, nonbloody. In the ER patient was noted to have a normal WBC count to 9.77, corrected calcium 10.1, T. bili 1.1 (chronic), normal LFTs, normal lipase and amylase. Urinalysis not suggestive of infection. CTAP with evidence of partial small bowel obstruction. Patient was made n.p.o. and given IV pain medications. Hospitalist service was consulted for evaluation and management of small bowel obstruction and pain control for such. Allergies Allergy/AdvReac Type Severity Reaction Status Date / Time No Known Allergies Allergy Verified 01/17/23 09:03 Home Medications Medication Instructions Recorded Confirmed Type acetaminophen 500 mg tablet 1,000 mg PO Q6H PRN Pain 08/08/19 02/13/23 History (Tylenol Extra Strength) cholecalciferol (vitamin D3) 25 1,000 unit PO QAM 08/08/19 02/13/23 History mcg (1,000 unit) capsule (Vitamin D3) lactobacillus combination no.4 3 3,000 mmu cells PO QAM 08/08/19 02/13/23 History billion cell capsule (Probiotic) multivitamin 1 tab PO PM 08/08/19 02/13/23 History thiamine HCl (vitamin B1) 100 mg 100 mg PO DAILY #30 tabs 08/11/19 02/13/23 Rx tablet Past Med/Surg History Medical History (Updated 02/13/23 @ 05:57 by Ava Peralta DO) Acute pancreatitis Chronic low back pain Common bile duct stricture Diverticulosis H/O diverticulitis of colon Hematoma of left breast Lumbar radiculopathy Mammogram abnormal Osteopenia Ovarian cyst, left Peroneal neuropathy RUQ abdominal pain White coat syndrome with high blood pressure but without hypertension Surgical History History of low anterior resection of rectum S/P colonoscopy January 2013 repeat 10yrs Status post endoscopic retrograde cholangiopancreatography Family History Other Cancer No pertinent family history Denies family history of Ovarian cancer Prostate cancer Myocardial infarction Breast cancer Colorectal cancer Social History Smoking Status: Former smoker Tobacco Type: Cigarettes packs per day: 0.25; Hx Alcohol Use: Yes Alcohol type: beer and wine Hx Substance Use: No Preferred Language: Montserratian Communication Ability: Effective Regional Maintenance Manager Required: No Beliefs That Will Affect Care: None marital status: Current Living Situation: Spouse How many Children do You have: 0 Feels Safe at Home: Yes during the past year weight has: remained stable Assistive Devices: None Review of Systems Review of Systems: All systems reviewed & are unremarkable except as noted in Subjective Physical Exam Constitutional: WD/WN, vitals as above Respiratory: normal respiratory effort, lungs clear to auscultation Cardiovascular: RRR, no murmur, no edema Gastrointestinal (Abdomen): Percussion/Palpation: + hernia (Incisional hernia at umbilicus and epigastrium) abdomen soft, tender in epigastric area, no rebound or guarding Skin: no rashes, warm and dry Psychiatric: A+Ox3, euthymic affect Results & Data Results & Data Vital Signs (Past 12 Hours) Vital Signs Temp Pulse Pulse Resp BP BP Pulse Ox 02/13/23 04:01 74 16 99 02/13/23 03:30 78 17 97 02/13/23 02:55 73 17 130/77 97 02/13/23 04:02 71 18 98 02/13/23 02:54 71 02/13/23 02:55 71 16 130/77 97 02/13/23 02:15 36.2 C L 99 H 18 148/92 H 99 O2 Del Method 02/13/23 04:01 02/13/23 03:30 02/13/23 02:55 02/13/23 04:02 02/13/23 02:54 02/13/23 02:55 Room Air 02/13/23 02:15 Room Air PG Care Time/CCT Total # of Minutes Spent Total Time Spent with Patient: Total time spent is greater than 50% in coordination of care (as documented) at patient's floor/unit and/or counseling patient: Coding Level of Care Code 32727 INT INP/OBS CARE 3/75MIN Diagnoses Small bowel obstruction K56.609 Incisional hernia without obstruction or gangrene K43.2 Alcohol use disorder F10.90 Hypercalcemia E83.52
--- NOTE | 2023-02-13 06:34 | Surgery Consultation ---
Date of Consultation February 13, 2023 Assessment & Plan (1) Small bowel obstruction: The patient has been admitted on the hospitalist service. We recommend proceeding as follows: Implement n.p.o. status Provide IV fluid for hydration Follow serial labs Provide analgesics Provide antiemetics I discussed the possibility of requiring an NG tube. As the patient's abdomen is nondistended and she has not had any nausea or vomiting I feel we can hold on this modality at the present time. I did discuss with the patient that if she does have any nausea or vomiting that ensue or if her abdominal pain becomes worse this modality may need to be reconsidered and she expressed her understanding. Additional recommendations to be forthcoming based on her clinical course as it unfolds Supervising Physician Co-Signing Physician Notes Patient discussed with Aflredito Landon overnight, labs and imaging reviewed, agree with above. See today's progress note for further details. History of Present Illness Reason for Consultation: Partial small bowel obstruction History of Present Illness This is a 62-year-old female who presented the emergency department secondary abdominal pain. The patient said that her she was feeling fine yesterday until late afternoon she developed some generalized abdominal pain. She did not have any nausea or vomiting. Patient said that the abdominal pain persisted prompting visit to the emergency department. She has had prior abdominal surgeries as she has had a partial colectomy secondary to diverticulitis. She has never had a bowel or small bowel obstruction in the past. With her pain she has not noted any modifying factors. She does note that she had a bowel movem ent yesterday but since her pain began she is not had a bowel movement and has only passed a small amount of flatus and has not passed any flatus since presentation to the emergency department. Is also noteworthy mention that the patient has been seen recently by Dr. Miguel Ángel Logan of [facility] physician group general surgery. He was seeing the patient most recently on 01/17/2023 secondary to an incisional hernia. He was considering performing repair of these hernias but prior to this he wanted her to have a colonoscopy which was performed on 01/22/2023. This study showed the patient had sigmoid diverticulosis with a normal-appearing colon otherwise. He also had the patient undergo a abdominal ultrasound which was performed on 01/24/2023. This showed no evidence of cholecystitis but patient was noted to have prominence of her common bile duct. Definitive surgical plans have not been made yet. Since arrival to the hospital the patient has had labs and imaging which independent reviewed. She did have a CT scan of the abdomen pelvis that showed a partial distal small bowel obstruction. There were moderately dilated small bowel loops with a transition point located in the pelvis. The patient was also noted to have an omental fat-containing midline hernia in 2 areas. A chest x- ray showed no evidence of pneumonia. There not appear to be any intraperitoneal free air on the study. Labs include a CBC her white blood cell count, hemoglobin, hematocrit, platelet count were normal. Chemistry profile showed sodium and potassium are both normal. Her BUN was normal and her creatinine was nonelevated at 0.5. There is no significant elevation of patient's LFTs or lipase other than a slight elevation of the total bilirubin at 1.1. Urinalysis was not indicative of infection. At the time of my interview the patient was resting comfortably in bed and she was no distress Allergies Allergy/AdvReac Type Severity Reaction Status Date / Time No Known Allergies Allergy Verified 01/17/23 09:03 Home Medications Medication Instructions Recorded Confirmed Type acetaminophen 500 mg tablet 1,000 mg PO Q6H PRN Pain 08/08/19 02/13/23 History (Tylenol Extra Strength) cholecalciferol (vitamin D3) 25 1,000 unit PO QAM 08/08/19 02/13/23 History mcg (1,000 unit) capsule (Vitamin D3) lactobacillus combination no.4 3 3,000 mmu cells PO QAM 08/08/19 02/13/23 History billion cell capsule (Probiotic) multivitamin 1 tab PO PM 08/08/19 02/13/23 History thiamine HCl (vitamin B1) 100 mg 100 mg PO DAILY #30 tabs 08/11/19 02/13/23 Rx tablet Patient History Medical History Acute pancreatitis Chronic low back pain Common bile duct stricture Diverticulosis H/O diverticulitis of colon Hematoma of left breast Lumbar radiculopathy Mammogram abnormal Osteopenia Ovarian cyst, left Peroneal neuropathy RUQ abdominal pain White coat syndrome with high blood pressure but without hypertension Surgical History History of low anterior resection of rectum S/P colonoscopy January 2013 repeat 10yrs Status post endoscopic retrograde cholangiopancreatography Family History Other Cancer No pertinent family history Denies family history of Ovarian cancer Prostate cancer Myocardial infarction Breast cancer Colorectal cancer Social History Smoking Status: Former smoker Tobacco Type: Cigarettes packs per day: 0.25; Smoking End Date: 1999; Second Hand Exposure: No; Do You Dip or Chew Tobacco: No; Tobacco Cessation Education Requested by Patient: No Hx Alcohol Use: Yes Alcohol type: beer Hx Substance Use: No Preferred Language: Lithuanian Communication Ability: Effective 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 Beliefs That Will Affect Care: None marital status: Current Living Situation: Spouse and Family How many Children do You have: 0 Other Information That Helps Us Care for You: No Feels Safe at Home: Yes Safety Concerns: Feels Safe At This Time during the past year weight has: remained stable Assistive Devices: None Review of Systems Constitutional: no fever and no chills Eyes: + corrective lenses Ear, Nose, Mouth, Throat: no hearing loss Respiratory: no cough and no dyspnea Cardiovascular: no chest pain Gastrointestinal: + abdominal pain; no nausea and no vomiting Genitourinary: no dysuria Musculoskeletal: no back pain Integumentary: no rash Neurologic: no localized weakness Physical Exam Constitutional: WD/WN, vitals as above Eyes: Wears glasses ENMT: Ears: no hearing impairment and no external ear abnormality Mouth: no oropharynx abnormality Neck: trachea midline Respiratory: normal respiratory effort; no respiratory distress and no labored breathing Cardiovascular: Rate/Rhythm: regular rate and regular rhythm Gastrointestinal (Abdomen): Patient's abdomen is soft and nonrigid. At the time of my exam it was not distended. Bowel sounds are present. There is no rebound tenderness or guarding but patient did have generalized pain throughout her abdomen but does appear to be greatest to the right of the umbilicus. The patient had a well- healed midline incision. The patient did have a palpable hernia defect near her umbilicus Musculoskeletal: No calf tenderness Skin: no rashes Neurologic: moves all extremities Psychiatric: A+Ox3, euthymic affect Results & Data Vital Signs (Past 12 Hours) Vital Signs Temp Pulse Pulse Resp BP BP Pulse Ox 02/13/23 04:01 74 16 99 02/13/23 03:30 78 17 97 02/13/23 02:55 73 17 130/77 97 02/13/23 04:02 71 18 98 02/13/23 02:54 71 02/13/23 02:55 71 16 130/77 97 02/13/23 02:15 36.2 C L 99 H 18 148/92 H 99 O2 Del Method 02/13/23 04:01 02/13/23 03:30 02/13/23 02:55 02/13/23 04:02 02/13/23 02:54 02/13/23 02:55 Room Air 02/13/23 02:15 Room Air PG Care Time/CCT Total # of Minutes Spent Total Time Spent with Patient: Total time spent is greater than 50% in coordination of care (as documented) at patient's floor/unit and/or counseling patient: Coding Level of Care Code 70692 IN/OBS CONSULT LVL 5,80M Diagnoses Small bowel obstruction K56.609
[2023-02-13 07:12] LABS: iSTAT Creatinine 0.6 mg/dl (0.6-1.3); iSTAT Hemoglobin 14.6 g/dl (12.0-16.0); iSTAT Ionized Calcium 1.18 mmol/l (1.12-1.32); iSTAT Potassium 3.4 mmol/L (3.3-5.0)
--- NOTE | 2023-02-13 08:05 | XRay Report ---
XR chest 1V portable CLINICAL HISTORY: upper abdominal pain TECHNIQUE: Single frontal radiograph of the chest was obtained. Comparison: Comparison is made to chest radiograph 12/17/2014 FINDINGS: No lines and tubes are seen. The cardiomediastinal silhouette is normal. The lungs are clear. No evid ence of pleural effusion or pneumothorax. IMPRESSION: No acute chest disease. ACT 112: Negative or not required by law. Electronically signed by: Zaid Awad M.D. 02/13/2023 8:02 AM
[2023-02-13] MEDS ORDERED: ONDANSETRON INJ 2 MG/ML 2 ML VIAL IV PRN (08:32)
[2023-02-13] MEDS ORDERED: LORazepam 2 MG/1 ML VIAL IV PRN (08:32)
[2023-02-13] MEDS: SODIUM CHLORIDE 0.9% 1000ML 1,000 ML IV SCH ×2 (08:52→19:31)
[2023-02-13] MEDS: MoRPHine SULFATE 2 MG/ML CARP IV PRN ×3 (08:52→18:40)
[2023-02-13] MEDS: FOLIC ACID 1 MG in SYRINGE 9.8 ML IV SCH (09:30)
[2023-02-13] MEDS: THIAMINE HCL 100 MG in SYRINGE 9 ML IV SCH (09:30)
--- NOTE | 2023-02-13 10:21 | Hospitalist Progress Note ---
Date of Service February 13, 2023 Assessment & Plan (1) Small bowel obstruction: Plan: Presented with epigastric abdominal pain and nausea. Last BM yesterday Hx diverticulitis w/ perforation/abscess/fistula requiring transfer/surgery ~2017, following w/ general surgery for incisional hernia/hopeful repair as outpatient CTAP with evidence of partial SBO General surgery consulted (follows with [facility] if needed) Holding off NGT for now -- active BS on exam Continue NPO NSS @ 80cc/hr Keep K~4, Mag ~2 Monitor labs/KUB on repeat in AM (2) Incisional hernia without obstruction or gangrene: Plan: Has seen Dr. Miguel Ángel Logan for these in the past with intention to surgically correct, as she notes they are painful at times Hernias are reducible on exam, no evidence for strangulation at present Gen Surg consult as above outpt f/u (3) Alcohol use disorder: Plan: History of alcohol use, about 10 alcoholic beverages per week at this time per patient history Has a history of alcohol-related pancreatitis (also in the setting of recent ERCP) AWSS at risk protocol ordered Continue thiamine and folic acid supplements IV for now Given ativan 1mg x 1 this morning for pain/anxiety. No evidence for DTs Consider banana bag for IVF but will hold off for now. Start PO B12 when taking PO (check level in AM) (4) Hypercalcemia: Plan: Ca 10.5 (corrected for albumin 10.1 wnl) POC ionized Ca wnl 1.18 ?from poor PO intake/dehydration Check Vit D w/ AM labs/PTH for further eval Monitor labs on repeat Plan DVT proph: low risk, ambulation encouraged. Added SCDs. Holding off chemoproph in case of need for surgical intervention but if remaining inpatient consider adding chemoproph tomorrow Admission and Anticipated Discharge Date Admission Date: February 13, 2023 Supervising Physician Co-Signing Physician Notes The patient was not seen by me. The chart was reviewed. Case discussed with JANNETTE Tineo. Agree with assessment and plan Subjective BRIDGE NOTE: ADMITTED AFTER MIDNIGHT Eval in room 350-2. Given small dose Ativan for anxiety/pain when transferring from ER to current room. Did not have any vomiting but did have nausea. Controlled with ordered medications. Last BM yesterday -- passing gas. Never had SBO in the past but she does endorse issues w/ diverticulitis around ~2017 and notes that they removed about 8inches and repair of a fistula that occurred. She also has hernias she has spoken to general surgery about in the past and is wanting repair of incisional hernia. No evidence of strangulation at present. Questions/concerns addressed at this time. Physical Exam Physical Exam: General: WD/WN thin female resting in bed, easily awoken, NAD HEENT: head normocephalic, atraumatic, mm slightly dry , trachea midline Resp: CTA, no w/c/r, on room air CV: RRR, no significant m/r/g, no pitting edema GI: +BS, nondistended, generalized tenderness reported but no overt tenderness on exam/rigidity//guarding umbical hernia noted, no erythema/warmth/evidence for strangulation : no murphy MSK/Neuro: no focal deficit, no slurred speech Psych; AOX3, cooperative with exam Results & Data Results & Data Vital Signs (Past 12 Hours) Vital Signs Temp Pulse Pulse Resp BP BP Pulse Ox 02/13/23 08:32 36.8 C 67 18 147/88 H 99 02/13/23 08:22 74 18 121/81 96 02/13/23 06:30 73 18 131/87 95 02/13/23 06:00 72 22 125/78 02/13/23 05:30 71 18 134/89 02/13/23 05:00 83 21 132/76 96 02/13/23 04:30 87 18 132/84 96 02/13/23 04:01 74 16 99 02/13/23 03:30 78 17 97 02/13/23 02:55 73 17 130/77 97 02/13/23 04:02 71 18 98 02/13/23 02:54 71 02/13/23 02:55 71 16 130/77 97 02/13/23 02:15 36.2 C L 99 H 18 148/92 H 99 O2 Del Method 02/13/23 08:32 Room Air 02/13/23 08:22 Room Air 02/13/23 06:30 02/13/23 06:00 02/13/23 05:30 02/13/23 05:00 02/13/23 04:30 02/13/23 04:01 02/13/23 03:30 02/13/23 02:55 02/13/23 04:02 02/13/23 02:54 02/13/23 02:55 Room Air 02/13/23 02:15 Room Air Laboratory Results 02/13/23 02/13/23 02/13/23 Range/Units 06:04 03:59 03:02 WBC (4.8-10.8) K/ul RBC (4.20-5.40) M/uL Hgb (12.0-16.0) g/dl POC Hgb 14.6 (12.0-16.0) g/dl Hct (37.0-47.0) % POC Hct 43 (37-47) % MCV (80.0-100.0) fL MCH (25.0-34.0) pg MCHC (32.0-36.0) g/dL RDW Std Deviation (36.4-46.3) fL RDW Coeff of Philip (11.5-14.5) % Plt Count (130-400) K/uL MPV (9.4-12.4) fL Immature Gran % (Auto) % Neut % (Auto) % Lymph % (Auto) % [place] % (Auto) % Eos % (Auto) % Baso % (Auto) % Neut # (Auto) (1.40-6.50) K/uL Lymph # (Auto) (1.2-3.4) K/uL [place] # (Auto) (0.11-0.59) K/uL Eos # (Auto) (0-0.50) K/uL Baso # (Auto) (0-0.2) K/uL Immature Gran # (Auto) (0.01-0.20) K/uL POC Sodium 137 (135-144) mmol/L Sodium (136-145) mmol/L POC Potassium 3.4 (3.3-5.0) mmol/L Potassium (3.5-5.1) mmol/L POC Chloride 95 L (101-112) mmol/L Chloride (98-107) mmol/L Carbon Dioxide (21-32) mmol/L POC Total CO2 28 (24-31) mmol/L Anion Gap (3-11) POC Anion Gap 18.0 (16-25) mmol/L POC BUN 7 (7-18) mg/dl BUN (6-23) mg/dl Creatinine (0.6-1.2) mg/dl POC Creatinine 0.6 (0.6-1.3) mg/dl Est Cr Clr Drug Dosing ml/min Est GFR ( Amer) ml/min Est GFR (Non-Af Amer) ml/min BUN/Creatinine Ratio (10-20) Glucose (70-99(Fasting)) mg/dl POC Glucose (other) 122 H (70-99) mg/dl Calcium (8.6-10.3) mg/dl POC Ioniz Calcium Di 1.18 (1.12-1.32) mmol/l Total Bilirubin (0.2-1.0) mg/dl AST (13-39) U/L ALT (7-52) U/L Alkaline Phosphatase (34-104) U/L Troponin I High Sens (0-14) pg/ml Total Protein (6.0-8.3) gm/dl Albumin (3.4-5.0) gm/dl Globulin (2.5-4.0) gm/dl Albumin/Globulin Ratio (0.9-2) Amylase (25-115) U/L Lipase (11-82) U/L Urine Color Yellow Urine Appearance Clear (Clear) Urine pH 8.5 H (4.5-7.5) Ur Specific Reading 1.015 (1.000-1.030) Urine Protein Negative (Negative) Urine Glucose (UA) Negative (Negative) Urine Ketones 2+ H (Negative) Urine Blood Negative (Negative) Urine Nitrite Negative (Negative) Urine Bilirubin Negative (Negative) Urine Urobilinogen Negative (Negative) Ur Leukocyte Esterase Negative (Negative) SARS-CoV-2, RNA, NAAT NEGATIVE (NEGATIVE) 02/13/23 02/13/23 Range/Units 02:50 02:50 WBC 9.77 (4.8-10.8) K/ul RBC 4.04 L (4.20-5.40) M/uL Hgb 13.8 (12.0-16.0) g/dl POC Hgb (12.0-16.0) g/dl Hct 39.2 (37.0-47.0) % POC Hct (37-47) % MCV 97.0 (80.0-100.0) fL MCH 34.2 H (25.0-34.0) pg MCHC 35.2 (32.0-36.0) g/dL RDW Std Deviation 39.3 (36.4-46.3) fL RDW Coeff of Philip 10.9 L (11.5-14.5) % Plt Count 291 (130-400) K/uL MPV 9.5 (9.4-12.4) fL Immature Gran % (Auto) 0.2 % Neut % (Auto) 72.2 % Lymph % (Auto) 19.8 % [place] % (Auto) 6.9 % Eos % (Auto) 0.5 % Baso % (Auto) 0.4 % Neut # (Auto) 7.06 H (1.40-6.50) K/uL Lymph # (Auto) 1.93 (1.2-3.4) K/uL [place] # (Auto) 0.67 H (0.11-0.59) K/uL Eos # (Auto) 0.05 (0-0.50) K/uL Baso # (Auto) 0.04 (0-0.2) K/uL Immature Gran # (Auto) 0.02 (0.01-0.20) K/uL POC Sodium (135-144) mmol/L Sodium 136 (136-145) mmol/L POC Potassium (3.3-5.0) mmol/L Potassium 3.5 (3.5-5.1) mmol/L POC Chloride (101-112) mmol/L Chloride 97 L (98-107) mmol/L Carbon Dioxide 30 (21-32) mmol/L POC Total CO2 (24-31) mmol/L Anion Gap 9 (3-11) POC Anion Gap (16-25) mmol/L POC BUN (7-18) mg/dl BUN 9 (6-23) mg/dl Creatinine 0.57 L (0.6-1.2) mg/dl POC Creatinine (0.6-1.3) mg/dl Est Cr Clr Drug Dosing 85.8 ml/min Est GFR ( Amer) 114.3 ml/min Est GFR (Non-Af Amer) 98.7 ml/min BUN/Creatinine Ratio 15.8 (10-20) Glucose 120 H (70-99(Fasting)) mg/dl POC Glucose (other) (70-99) mg/dl Calcium 10.5 H (8.6-10.3) mg/dl POC Ioniz Calcium Di (1.12-1.32) mmol/l Total Bilirubin 1.1 H (0.2-1.0) mg/dl AST 25 (13-39) U/L ALT 22 (7-52) U/L Alkaline Phosphatase 55 (34-104) U/L Troponin I High Sens 4.1 (0-14) pg/ml Total Protein 7.2 (6.0-8.3) gm/dl Albumin 4.5 (3.4-5.0) gm/dl Globulin 2.7 (2.5-4.0) gm/dl Albumin/Globulin Ratio 1.7 (0.9-2) Amylase 53 (25-115) U/L Lipase 12 (11-82) U/L Urine Color Urine Appearance (Clear) Urine pH (4.5-7.5) Ur Specific Reading (1.000-1.030) Urine Protein (Negative) Urine Glucose (UA) (Negative) Urine Ketones (Negative) Urine Blood (Negative) Urine Nitrite (Negative) Urine Bilirubin (Negative) Urine Urobilinogen (Negative) Ur Leukocyte Esterase (Negative) SARS-CoV-2, RNA, NAAT (NEGATIVE) Diagnostic Findings Abdomen/Pelvis CT 02/13/23 02:33 Exam(s): CT ABDOMEN + PELVIS With Contrast IV Amt: 90 ML OPTIRAY 320 EXAM: CT Abdomen and Pelvis With Intravenous Contrast CLINICAL HISTORY: Reason for exam: RUQ and epigastric abdominal pain. TECHNIQUE: Axial computed tomography images of the abdomen and pelvis with intravenous contrast. CTDI is 10.44 mGy and DLP is 472.91 mGy-cm. Automated exposure control was utilized for the study. A dose lowering technique was utilized adhering to the principles of ALARA. CONTRAST: Patient received 90 ML OPTIRAY 320 of IV contrast COMPARISON: 10/16/21 FINDINGS: Lung bases: Unremarkable. No mass. No consolidation. ABDOMEN: Liver: There are multiple hepatic cysts, the largest 1 measuring up to 5.3 cm in diameter. Gallbladder and bile ducts: Unremarkable. No calcified stones. No ductal dilation. Pancreas: Unremarkable. No mass. No ductal dilation. Spleen: Unremarkable. No splenomegaly. Adrenals: Unremarkable. No mass. Kidneys and ureters: There are multiple renal cysts measuring up to 9 mm in diameter. No hydronephrosis. Stomach and bowel: Moderately dilated small bowel loops seen in the abdomen and pelvis with transition point located in the pelvis on axial image 53, series 2. The distal ileal loops are decompressed. PELVIS: Appendix: No findings to suggest acute appendicitis. Bladder: Unremarkable. No mass. Reproductive: Unremarkable as visualized. ABDOMEN and PELVIS: Intraperitoneal space: There is small volume of abdominal and pelvic ascites. Bones/joints: No acute fracture. No dislocation. Soft tissues: There is mild edema seen in the small bowel mesentery. Omental fat-containing midline ventral hernia measuring 3.9 cm in diameter. Omental fat-containing umbilical hernia measuring up to 3.1 cm in diameter. Vasculature: Unremarkable. No abdominal aortic aneurysm. Lymph nodes: Unremarkable. No enlarged lymph nodes. IMPRESSION: Partial distal small bowel obstruction Electronically signed by: Aleksandr Piña MD 02/13/23 05:03 AM Chest X-Ray 02/13/23 02:34 XR chest 1V portable CLINICAL HISTORY: upper abdominal pain TECHNIQUE: Single frontal radiograph of the chest was obtained. Comparison: Comparison is made to chest radiograph 12/17/2014 FINDINGS: No lines and tubes are seen. The cardiomediastinal silhouette is normal. The lungs are clear. No evidence of pleural effusion or pneumothorax. IMPRESSION: No acute chest disease. ACT 112: Negative or not required by law. Electronically signed by: Zaid Awad M.D. 02/13/2023 8:02 AM PG Care Time/CCT Total # of Minutes Spent Total Time Spent with Patient: Total time spent is greater than 50% in coordination of care (as documented) at patient's floor/unit and/or counseling patient: Coding Level of Care Code None Diagnoses Small bowel obstruction K56.609 Incisional hernia without obstruction or gangrene K43.2 Alcohol use disorder F10.90 Hypercalcemia E83.52
--- NOTE | 2023-02-13 12:46 | Surgery Progress Note ---
Date of Service February 13, 2023 Assessment & Plan (1) Small bowel obstruction: Plan: Admitted with small bowel obstruction, continue with nonoperative management. No need for NG tube at this time Await return of bowel function Possible contrast study in the next few days if no improvement Surgical follow, call with questions or concerns Admission and Anticipated Discharge Date Admission Date: February 13, 2023 Subjective Admitted with small bowel obstruction likely secondary to adhesions. Pain somewhat improved. No nausea. Has not passed flatus. Last BM yesterday. No prior episodes. Prior history of sigmoidectomy for diverticulitis. Also 2 incisional hernias that are followed by Dr. Logan as an outpatient Physical Exam Constitutional: WD/WN, vitals as above Respiratory: normal respiratory effort, lungs clear to auscultation Cardiovascular: RRR, no murmur, no edema Gastrointestinal (Abdomen): Inspection/Auscultation: + abdominal surgical scar (Midline laparotomy well-healed) Percussion/Palpation: + abdomen tender (Mild pelvic and right lower quadrant tenderness) and + hernia (Umbilical and midline hernia); no guarding and abdomen not rigid Results & Data Vital Signs (Past 12 Hours) Vital Signs Temp Pulse Pulse Resp BP BP Pulse Ox 02/13/23 08:32 36.8 C 67 18 147/88 H 99 02/13/23 08:22 74 18 121/81 96 02/13/23 06:30 73 18 131/87 95 02/13/23 06:00 72 22 125/78 02/13/23 05:30 71 18 134/89 02/13/23 05:00 83 21 132/76 96 02/13/23 04:30 87 18 132/84 96 02/13/23 04:01 74 16 99 02/13/23 03:30 78 17 97 02/13/23 02:55 73 17 130/77 97 02/13/23 04:02 71 18 98 02/13/23 02:54 71 02/13/23 02:55 71 16 130/77 97 02/13/23 02:15 36.2 C L 99 H 18 148/92 H 99 O2 Del Method 02/13/23 08:32 Room Air 02/13/23 08:22 Room Air 02/13/23 06:30 02/13/23 06:00 02/13/23 05:30 02/13/23 05:00 02/13/23 04:30 02/13/23 04:01 02/13/23 03:30 02/13/23 02:55 02/13/23 04:02 02/13/23 02:54 02/13/23 02:55 Room Air 02/13/23 02:15 Room Air Diagnostic Findings Personally reviewed and interpreted the CT scan agree with the assessment of transition point in the right lower quadrant with partial small bowel obstruction. PG Care Time/CCT Total # of Minutes Spent Total Time Spent with Patient: Total time spent is greater than 50% in coordination of care (as documented) at patient's floor/unit and/or counseling patient: Coding Level of Care Code 63384 SUB INP/OBS CARE 09/26MIN Diagnoses Small bowel obstruction K56.609
[2023-02-13] MEDS ORDERED: PROMETHAZINE HCL 6.25 MG in SODIUM CHLORIDE 0.9% 50 ML IV PRN (18:01)
[2023-02-13] MEDS ORDERED: CHLORASEPTIC 1.4% SOLN 180 ML BTL MT PRN (18:27)
--- NOTE | 2023-02-13 19:11 | XRay Report ---
KUB CLINICAL HISTORY: ng placement COMPARISON STUDY: CT of the abdomen and pelvis performed earlier today. FINDINGS: The tip of the nasogastric tube is within the body of the stomach. Dilated loops of small b owel are partially imaged on this exam, as shown on the abdominal CT. IMPRESSION: 1. Tip of nasogastric tube within the body of the stomach. 2. Persistent small bowel obstruction, partially imaged on this exam. ACT 112: Negative or not required by law. Electronically signed by: Jose Alejandro Queen M.D. 02/13/2023 7:09 PM
[2023-02-13] MEDS: ACETAMINOPHEN 1,000 MG/100 ML VIAL IV PRN (21:35)
[2023-02-14] MEDS: MoRPHine SULFATE 2 MG/ML CARP IV PRN (02:24)
[2023-02-14] MEDS: SODIUM CHLORIDE 0.9% 1000ML 1,000 ML IV SCH (03:52)
[2023-02-14] MEDS: FOLIC ACID 1 MG in SYRINGE 9.8 ML IV SCH (07:55)
[2023-02-14] MEDS: THIAMINE HCL 100 MG in SYRINGE 9 ML IV SCH (07:56)
--- NOTE | 2023-02-14 07:59 | Hospitalist Progress Note ---
Date of Service February 14, 2023 Assessment & Plan (1) Small bowel obstruction: Plan: Presented with epigastric abdominal pain and nausea. Last BM yesterday Hx diverticulitis w/ perforation/abscess/fistula requiring transfer/surgery ~2017, following w/ general surgery for incisional hernia/hopeful repair as outpatient CTAP with evidence of partial SBO General surgery consulted (follows with [facility] if needed) 02/14 Developed nausea/vomiting for bilious emesis 300cc + 800cc following zofran last evening. NGT to LIWS placed, increased IVF and added Phenergan Feeling improved since NGT placed, and will continue NPO/IVF/NGT/bowel rest until return of meanginful bowel function Labs from AM reviewed-- CBC w/ WBC wnl, stable hgb/plt Chemistries reviewed: * K 3.3 -- 20meq IV ordered, changed IVF to NS +20meq and decreased rate to 100cc/hr * Mag 1.4 -- 4gm IV magnesium ordered KUB w/ persistent SBO Remains NPO - per surgery, ok w/ sips/chips Supportive care, pain control, antiemetics prn Labs/KUB in AM (2) Incisional hernia without obstruction or gangrene: Plan: Has seen Dr. Miguel Ángel Logan for these in the past with intention to surgically correct, as she notes they are painful at times Hernias are reducible on exam, no evidence for strangulation at present Gen Surg consult as above outpt f/u (3) Alcohol use disorder: Plan: History of alcohol use, about 10 alcoholic beverages per week at this time per patient history Has a history of alcohol-related pancreatitis (also in the setting of recent ERCP) AWSS at risk protocol ordered Continue thiamine and folic acid supplements IV for now SL ativan available as needed B12 wnl, can start PO supp when taking PO No evidence for DTs at present (4) Hypercalcemia: Plan: Ca 10.5 (corrected for albumin 10.1 wnl) - ? poor PO intake/dehydration. Vit D/PTH w/o elevation Ca normalized w/ hydration Monitor for any issues (5) Electrolyte abnormality: Plan: hypokalemia/hypomagnesemia likely 2nd to n/v last evening IV K riders, added to IVF. IV magnesium ordered monitor labs on repeat/additional replacement if needed Plan DVT proph: low risk, ambulation encouraged. Added SCDs. Holding off chemoproph in case of need for surgical intervention but if remaining inpatient consider adding chemoproph tomorrow -- messaged surgery regarding such to see if they are ok w/ ordering some vs holding off for now Admission and Anticipated Discharge Date Admission Date: February 13, 2023 Supervising Physician Co-Signing Physician Notes The patient was not seen by me. The chart was reviewed. Case discussed with JANNETTE Tineo. Agree with assessment and plan Subjective eval this morning, doing better than last night. Had worsening nausea and emesis last evening, about 300cc initially, given zofran and had another about 800cc. NGT placed, draining brownish drainage in canister. She reports feeling better since placement, wanting to know about eating. Discussed mouth swabs for moisture but would avoid advancing diet just yet and wanting to keep NGT in place until return of bowel function to prevent having to reinsert. No fever/chills, but she reports she thinks she had a low grade temp reported. Instructed RN to provide incentive spirometer to prevent atelectasis. Electrolyte replacement discussed and ordered, suspect secondary to GI losses from n/v and will continue to monitor/ Not yet seen by surgery. Reports passing gas x1, nothing since. Does have BS on exam, slightly hypoactive LLQ Questions/concerns addressed at this time. Physical Exam Physical Exam: General: WD/WN thin female resting in bed, NAD HEENT: head normocephalic, atraumatic, mm slightly dry but improved from yesterday NGT to LIS, brownish drainage in cannister present Resp: CTA, slightly diminished in the bases with associated crackles, on room air CV: RRR, no significant m/r/g, no pitting edema GI: +BS, slight distension (less than last evening), generalized tenderness reported but no overt tenderness on exam/rigidity//guarding umbical hernia noted, no erythema/warmth/evidence for strangulation : no murphy MSK/Neuro: no focal deficit, no slurred speech Psych; AOX3, cooperative with exam Results & Data Results & Data Vital Signs (Past 12 Hours) Vital Signs Temp Pulse Resp BP Pulse Ox O2 Del Method 02/14/23 07:50 36.7 C 85 18 111/76 95 Room Air 02/13/23 21:31 37.6 C H 108 H 16 117/76 96 Room Air Laboratory Results 02/14/23 02/14/23 02/14/23 Range/Units 07:00 07:00 07:00 WBC (4.8-10.8) K/ul RBC (4.20-5.40) M/uL Hgb (12.0-16.0) g/dl Hct (37.0-47.0) % MCV (80.0-100.0) fL MCH (25.0-34.0) pg MCHC (32.0-36.0) g/dL RDW Std Deviation (36.4-46.3) fL RDW Coeff of Philip (11.5-14.5) % Plt Count (130-400) K/uL MPV (9.4-12.4) fL Immature Gran % (Auto) % Neut % (Auto) % Lymph % (Auto) % [place] % (Auto) % Eos % (Auto) % Baso % (Auto) % Neut # (Auto) (1.40-6.50) K/uL Lymph # (Auto) (1.2-3.4) K/uL [place] # (Auto) (0.11-0.59) K/uL Eos # (Auto) (0-0.50) K/uL Baso # (Auto) (0-0.2) K/uL Immature Gran # (Auto) (0.01-0.20) K/uL RBC Morphology Sodium 140 (136-145) mmol/L Potassium 3.3 L (3.5-5.1) mmol/L Chloride 105 (98-107) mmol/L Carbon Dioxide 26 (21-32) mmol/L Anion Gap 9 (3-11) BUN 11 (6-23) mg/dl Creatinine 0.46 L (0.6-1.2) mg/dl Est Cr Clr Drug Dosing 106.3 ml/min Est GFR ( Amer) 122.7 ml/min Est GFR (Non-Af Amer) 105.9 ml/min BUN/Creatinine Ratio 23.9 H (10-20) Glucose 90 (70-99(Fasting)) mg/dl Calcium 8.6 (8.6-10.3) mg/dl Magnesium 1.4 L (1.7-2.4) mg/dl Total Bilirubin 0.8 (0.2-1.0) mg/dl AST 14 (13-39) U/L ALT 12 (7-52) U/L Alkaline Phosphatase 39 (34-104) U/L Total Protein 5.9 L (6.0-8.3) gm/dl Albumin 3.5 (3.4-5.0) gm/dl Globulin 2.4 L (2.5-4.0) gm/dl Albumin/Globulin Ratio 1.5 (0.9-2) Vitamin B12 449 (180-914) pg/ml 25-OH Vitamin D Total 31.4 (30-100) ng/ml PTH Intact 65.3 (12.0-88.0) pg/ml 02/14/23 Range/Units 07:00 WBC 6.22 (4.8-10.8) K/ul RBC 3.85 L (4.20-5.40) M/uL Hgb 13.1 (12.0-16.0) g/dl Hct 37.8 (37.0-47.0) % MCV 98.2 (80.0-100.0) fL MCH 34.0 (25.0-34.0) pg MCHC 34.7 (32.0-36.0) g/dL RDW Std Deviation 40.0 (36.4-46.3) fL RDW Coeff of Philip 11.1 L (11.5-14.5) % Plt Count 256 (130-400) K/uL MPV 9.8 (9.4-12.4) fL Immature Gran % (Auto) 0.3 % Neut % (Auto) 63.3 % Lymph % (Auto) 22.0 % [place] % (Auto) 13.3 % Eos % (Auto) 0.8 % Baso % (Auto) 0.3 % Neut # (Auto) 3.93 (1.40-6.50) K/uL Lymph # (Auto) 1.37 (1.2-3.4) K/uL [place] # (Auto) 0.83 H (0.11-0.59) K/uL Eos # (Auto) 0.05 (0-0.50) K/uL Baso # (Auto) 0.02 (0-0.2) K/uL Immature Gran # (Auto) 0.02 (0.01-0.20) K/uL RBC Morphology Unremarkable Sodium (136-145) mmol/L Potassium (3.5-5.1) mmol/L Chloride (98-107) mmol/L Carbon Dioxide (21-32) mmol/L Anion Gap (3-11) BUN (6-23) mg/dl Creatinine (0.6-1.2) mg/dl Est Cr Clr Drug Dosing ml/min Est GFR ( Amer) ml/min Est GFR (Non-Af Amer) ml/min BUN/Creatinine Ratio (10-20) Glucose (70-99(Fasting)) mg/dl Calcium (8.6-10.3) mg/dl Magnesium (1.7-2.4) mg/dl Total Bilirubin (0.2-1.0) mg/dl AST (13-39) U/L ALT (7-52) U/L Alkaline Phosphatase (34-104) U/L Total Protein (6.0-8.3) gm/dl Albumin (3.4-5.0) gm/dl Globulin (2.5-4.0) gm/dl Albumin/Globulin Ratio (0.9-2) Vitamin B12 (180-914) pg/ml 25-OH Vitamin D Total (30-100) ng/ml PTH Intact (12.0-88.0) pg/ml Diagnostic Findings KUB X-Ray 02/13/23 18:24 KUB CLINICAL HISTORY: ng placement COMPARISON STUDY: CT of the abdomen and pelvis performed earlier today. FINDINGS: The tip of the nasogastric tube is within the body of the stomach. Dilated loops of small bowel are partially imaged on this exam, as shown on the abdominal CT. IMPRESSION: 1. Tip of nasogastric tube within the body of the stomach. 2. Persistent small bowel obstruction, partially imaged on this exam. ACT 112: Negative or not required by law. Electronically signed by: Jose Alejandro Queen M.D. 02/13/2023 7:09 PM KUB X-Ray 02/14/23 07:00 KUB CLINICAL HISTORY: f/u SBO COMPARISON STUDY: CT of the abdomen and pelvis and KUB February 13, 2023. FINDINGS: Tip of nasogastric tube is within the gastric antrum. Multiple loops of dilated small bowel measure up to 3.9 cm in caliber. The findings suggest a persistent small bowel obstruction. There is no evidence for free air on this supine exam. IMPRESSION: 1. Persistent small bowel obstruction. 2. Appropriately positioned nasogastric tube. ACT 112: Negative or not required by law. Electronically signed by: Jose Alejandro Queen M.D. 02/14/2023 11:53 AM PG Care Time/CCT Total # of Minutes Spent Total Time Spent with Patient: Total time spent is greater than 50% in coordination of care (as documented) at patient's floor/unit and/or counseling patient: Coding Level of Care Code 61981 SUB INP/OBS CARE 3/50MIN Diagnoses Small bowel obstruction K56.609 Incisional hernia without obstruction or gangrene K43.2 Alcohol use disorder F10.90 Hypercalcemia E83.52 Electrolyte abnormality E87.8
[2023-02-14 08:05] LABS: Hematocrit (blood only) 37.8 % (37.0-47.0); Hemoglobin 13.1 g/dl (12.0-16.0); Mean Corpuscular Hgb Conc 34.7 g/dL (32.0-36.0); Mean Corpuscular Volume 98.2 fL (80.0-100.0); Mean Platelet Volume 9.8 fL (9.4-12.4); Platelet Count 256 K/uL (130-400); RDW Coefficient of Variation 11.1 % (11.5-14.5); Red Blood Count 3.85 M/uL (4.20-5.40); White Blood Count 6.22 K/ul (4.8-10.8)
[2023-02-14] MEDS: ACETAMINOPHEN 1,000 MG/100 ML VIAL IV PRN ×2 (08:06→17:39)
[2023-02-14 08:24] LABS: Albumin Globulin Ratio 1.5 (0.9-2); Albumin Level 3.5 gm/dl (3.4-5.0); BUN Creatinine Ratio 23.9 (10-20); Bilirubin,Total 0.8 mg/dl (0.2-1.0); Calcium 8.6 mg/dl (8.6-10.3); Creatinine Clr Calc Pharmacy 106.3 ml/min; Est GFR (African American) 122.7 ml/min; Est GFR (Non-African American) 105.9 ml/min; Globulin 2.4 gm/dl (2.5-4.0); Magnesium 1.4 mg/dl (1.7-2.4); Potassium 3.3 mmol/L (3.5-5.1); Total Protein 5.9 gm/dl (6.0-8.3)
[2023-02-14 08:39] LABS: Basophils # (auto) 0.02 K/uL (0-0.2); Basophils % (auto) 0.3 %; Eosinophils # (auto) 0.05 K/uL (0-0.50); Eosinophils % (auto) 0.8 %; Immature Granulocytes # (auto) 0.02 K/uL (0.01-0.20); Immature Granulocytes % (auto) 0.3 %; Lymphocytes # (auto) 1.37 K/uL (1.2-3.4); Monocytes # (auto) 0.83 K/uL (0.11-0.59); Monocytes % (auto) 13.3 %; Neutrophils # (auto) 3.93 K/uL (1.40-6.50); Neutrophils % (auto) 63.3 %; RBC Morphology Unremarkable
[2023-02-14 08:50] LABS: Vitamin D, 25 Hydrox 31.4 ng/ml (30-100)
[2023-02-14] MEDS: POTASSIUM CHLORIDE / WTR 10 MEQ/100 ML PLCT IV SCH ×2 (09:37→10:42)
[2023-02-14] MEDS: MAGNESIUM SULFATE / D5W 1 GM/100 ML BAG IV SCH ×4 (09:42→15:32)
--- NOTE | 2023-02-14 09:52 | Surgery Progress Note ---
Date of Service February 14, 2023 Assessment & Plan (1) Small bowel obstruction: Plan: Patient here with SBO, developed worsening nausea/vomiting overnight NGT now in place, drained >1L in last 12 hours KUB obtained today and is pending She is feeling a bit better with NGT in Will continue supportive care (NPO/IVF/NGT) for bowel rest until return of more meaningful bowel function If no improvement may obtain SBFT in near future Admission and Anticipated Discharge Date Admission Date: February 13, 2023 Supervising Physician Co-Signing Physician Notes Patient seen and examined, labs and imaging reviewed, agree with above. Admitted with small bowel obstruction, vomited overnight, NG tube placed. Less pain today than yesterday. Did pass a very small amount of flatus. On exam afebrile with stable vitals. Abdomen soft, mildly distended, mildly tender to palpation in the right lower quadrant. KUB reviewed and shows persistent small bowel distention and appropriate placement of NG tube. Labs unremarkable. Continue with nonoperative management, NG tube to low intermittent wall suction, await return of bowel function. Subjective Patient is feeling better than yesterday. Required NGT placement yesterday evening for nausea/vomiting. Her pain is mostly on the L but improved. She passed gas x1. Physical Exam Physical Exam: awake/alert no distress Respiratory: normal respiratory effort Gastrointestinal (Abdomen): Inspection/Auscultation: + abdomen distended (mild) Percussion/Palpation: + abdomen tender (mild discomfort across mid abdomen, worse on L side) and abdomen soft NGT with dark bilious drainage Results & Data Vital Signs (Past 12 Hours) Vital Signs Temp Pulse Resp BP Pulse Ox O2 Del Method 02/14/23 07:50 36.7 C 85 18 111/76 95 Room Air PG Care Time/CCT Total # of Minutes Spent Total Time Spent with Patient: Total time spent is greater than 50% in coordination of care (as documented) at patient's floor/unit and/or counseling patient: Coding Level of Care Code 02915 SUB INP/OBS CARE 125MIN Diagnoses Small bowel obstruction K56.609
[2023-02-14] MEDS: FAMOTIDINE 20 MG in SYRINGE 3 ML IV SCH (09:58)
[2023-02-14] MEDS: NSS + 20MEQ KCL 20 MEQ/1,000 ML BAG IV SCH ×2 (11:50→22:12)
--- NOTE | 2023-02-14 11:54 | XRay Report ---
KUB CLINICAL HISTORY: f/u SBO COMPARISON STUDY: CT of the abdomen and pelvis and KUB February 13, 2023. FINDINGS: Tip of nasogastric tube is within the gastric antrum. Multiple loops of dilated small bowel measure up to 3.9 cm in caliber. The findings suggest a persistent small bowel obstruction. There is no evidence for free air on this supine exam. IMPRESSION: 1. Persistent small bowel obstruction. 2. Appropriately positioned nasogastric tube. ACT 112: Negative or not required by law. Electronically signed by: Jose Alejandro Queen M.D. 02/14/2023 11:53 AM
[2023-02-15] MEDS: MoRPHine SULFATE 2 MG/ML CARP IV PRN (00:58)
[2023-02-15] MEDS ORDERED: MoRPHine SULFATE 2 MG/ML CARP IV STA (01:21)
[2023-02-15 08:01] LABS: Hematocrit (blood only) 36.4 % (37.0-47.0); Hemoglobin 12.4 g/dl (12.0-16.0); Mean Corpuscular Hemoglobin 34.1 pg (25.0-34.0); Mean Corpuscular Hgb Conc 34.1 g/dL (32.0-36.0); Mean Platelet Volume 9.6 fL (9.4-12.4); Platelet Count 243 K/uL (130-400); RDW Coefficient of Variation 11.1 % (11.5-14.5); RDW Standard Deviation 40.5 fL (36.4-46.3); Red Blood Count 3.64 M/uL (4.20-5.40); White Blood Count 7.43 K/ul (4.8-10.8)
[2023-02-15 08:19] LABS: Albumin Globulin Ratio 1.4 (0.9-2); Albumin Level 3.4 gm/dl (3.4-5.0); BUN Creatinine Ratio 26.8 (10-20); Bilirubin,Total 0.5 mg/dl (0.2-1.0); Calcium 8.7 mg/dl (8.6-10.3); Creatinine Clr Calc Pharmacy 119.3 ml/min; Est GFR (African American) 127.4 ml/min; Globulin 2.5 gm/dl (2.5-4.0); Magnesium 1.8 mg/dl (1.7-2.4); Total Protein 5.9 gm/dl (6.0-8.3)
[2023-02-15] MEDS ORDERED: GLUCAGON FOR INJ 1 MG VIAL SQ PRN (08:31)
[2023-02-15] MEDS ORDERED: GLUCOSE 40% GEL 15 GM TUBE PO PRN (08:31)
[2023-02-15] MEDS ORDERED: GLUCOSE 10 TAB/TUBE PO PRN (08:31)
[2023-02-15] MEDS ORDERED: CARBOHYDRATES FOR HYPOGLYCEMIA PO PRN (08:31)
[2023-02-15] MEDS ORDERED: DEXTROSE 50% 50 ML SYRINGE IV PRN (08:31)
--- NOTE | 2023-02-15 08:37 | Hospitalist Progress Note ---
Date of Service February 15, 2023 Assessment & Plan (1) Small bowel obstruction: Plan: Presented with epigastric abdominal pain and nausea. Last BM yesterday Hx diverticulitis w/ perforation/abscess/fistula requiring transfer/surgery ~2016, following w/ general surgery for incisional hernia/hopeful repair as outpatient CTAP with evidence of partial SBO General surgery consulted (follows with [facility] if needed) Developed nausea/vomiting for bilious emesis 300cc + 800cc following zofran PM 02/13, NGT to LIWS placed, IVF increased and antiemetics adjusted 02/15 KUB w/ persistent SBO, however patient w/ reporting like going to have BM after seeing her this morning -- monitor bowel function Surgery on consult/following -- appreciate assistance/recs Changing IVF to D5NS +20meq KCl, monitor BSGs given hypoglycemia. Slight elevated anion gap 13 K/Mag improved and wnl on repeat with electrolyte replacement 02/14. Continue NGT for now -- still with significant output Continue Pepcid IVP for GI prophylaxis Continue NPO x sips/chips per discussion w/ surgery yesterday Will discuss starting SQH for DVT proph today Monitor labs/KUB on repeat (2) Incisional hernia without obstruction or gangrene: Plan: Has seen Dr. Miguel Ángel Logan for these in the past with intention to surgically correct, as she notes they are painful at times Hernias are reducible on exam, no evidence for strangulation at present Gen Surg consult as above outpt f/u (3) Alcohol use disorder: Plan: History of alcohol use, about 10 alcoholic beverages per week at this time per patient history Has a history of alcohol-related pancreatitis (also in the setting of recent ERCP) AWSS at risk protocol ordered Continue thiamine and folic acid supplements IV for now SL ativan available as needed B12 wnl, can start PO supp when taking PO No evidence for DTs at present (4) Hypercalcemia: Plan: Ca 10.5 (corrected for albumin 10.1 wnl) - ? poor PO intake/dehydration. Vit D/PTH w/o elevation Ca normalized w/ hydration Monitor for any issues (5) Electrolyte abnormality: Plan: hypokalemia/hypomagnesemia likely 2nd to n/v prior to NGT placement 2 days ago K/Mag low and electrolyte replacement ordered and wnl on repeat Monitor on repeat/additional replacement as needed Plan DVT proph: low risk, ambulation encouraged. Added SCDs. Holding off chemoproph in case of need for surgical intervention but discussed w/ surgery PA last evening for consideration SQ Heparin for today and messaged them this morning to see about starting Admission and Anticipated Discharge Date Admission Date: February 13, 2023 Supervising Physician Co-Signing Physician Notes The patient was not seen by me. The chart was reviewed. Case discussed with JANNETTE Tineo. Agree with assessment and plan Subjective eval this morning had some increased abdominal pain overnight, medicated and feeling better. lots of bowel sounds on exam, feeling like she has to use the restroom/possibly have a bowel movement right now. no fever/chills, chest pain, shortness of breath, palpitations reported. No nausea at present. NGT remaining in place. Had KUB this morning, pending. BSG slightly low this morning but asymptomatic, dextrose to be added to IVF. Questions/concerns addressed at this time. Review of Systems Review of Systems: All systems reviewed & are unremarkable except as noted in HPI & below Physical Exam Physical Exam: General: WD/WN thin female resting in bed, NAD HEENT: head normocephalic, atraumatic, mm improved, trachea midline NGT to LIS, draining appropriately Resp: CTA, slightly diminished in the bases with associated crackles (improving), on room air CV: RRR, no significant m/r/g, no pitting edema GI: +BS (slightly hypoactive RLQ), slight distension (less than last evening), generalized tenderness reported ,, moreso epigastric, RLQ, no guarding/rigidity umbical hernia noted, no erythema/warmth/evidence for strangulation : no murphy MSK/Neuro: no focal deficit, no slurred speech Psych; AOX3, cooperative with exam Results & Data Results & Data Vital Signs (Past 12 Hours) Vital Signs Temp Pulse Resp BP Pulse Ox O2 Del Method 02/15/23 07:55 37.1 C 103 H 18 116/81 96 Room Air 02/15/23 01:11 36.8 C 90 18 119/75 95 Room Air Laboratory Results 02/15/23 02/15/23 Range/Units 07:21 07:21 WBC 7.43 (4.8-10.8) K/ul RBC 3.64 L (4.20-5.40) M/uL Hgb 12.4 (12.0-16.0) g/dl Hct 36.4 L (37.0-47.0) % MCV 100.0 (80.0-100.0) fL MCH 34.1 H (25.0-34.0) pg MCHC 34.1 (32.0-36.0) g/dL RDW Std Deviation 40.5 (36.4-46.3) fL RDW Coeff of Philip 11.1 L (11.5-14.5) % Plt Count 243 (130-400) K/uL MPV 9.6 (9.4-12.4) fL Sodium 141 (136-145) mmol/L Potassium 4.0 D (3.5-5.1) mmol/L Chloride 107 (98-107) mmol/L Carbon Dioxide 21 (21-32) mmol/L Anion Gap 13 H (3-11) BUN 11 (6-23) mg/dl Creatinine 0.41 L (0.6-1.2) mg/dl Est Cr Clr Drug Dosing 119.3 ml/min Est GFR ( Amer) 127.4 ml/min Est GFR (Non-Af Amer) 110.0 ml/min BUN/Creatinine Ratio 26.8 H (10-20) Glucose 58 L (70-99(Fasting)) mg/dl Calcium 8.7 (8.6-10.3) mg/dl Magnesium 1.8 (1.7-2.4) mg/dl Total Bilirubin 0.5 (0.2-1.0) mg/dl AST 15 (13-39) U/L ALT 10 (7-52) U/L Alkaline Phosphatase 38 (34-104) U/L Total Protein 5.9 L (6.0-8.3) gm/dl Albumin 3.4 (3.4-5.0) gm/dl Globulin 2.5 (2.5-4.0) gm/dl Albumin/Globulin Ratio 1.4 (0.9-2) Lipase 11 (11-82) U/L Diagnostic Findings KUB X-Ray 02/14/23 07:00 KUB CLINICAL HISTORY: f/u SBO COMPARISON STUDY: CT of the abdomen and pelvis and KUB February 13, 2023. FINDINGS: Tip of nasogastric tube is within the gastric antrum. Multiple loops of dilated small bowel measure up to 3.9 cm in caliber. The findings suggest a persistent small bowel obstruction. There is no evidence for free air on this supine exam. IMPRESSION: 1. Persistent small bowel obstruction. 2. Appropriately positioned nasogastric tube. ACT 112: Negative or not required by law. Electronically signed by: Jose Alejandro Queen M.D. 02/14/2023 11:53 AM KUB X-Ray 02/15/23 07:00 XR KUB/Abdomen 1 view CLINICAL HISTORY: f/u SBO TECHNIQUE: 1 view of the abdomen was obtained. Comparison: Comparison is made to abdomen radiographs 02/14/2013 FINDINGS: Stable endotracheal tube. Degenerative changes are seen in the visualized skeleton. Redemonstration of gas distended loops of small bowel. Small stool burden is seen. IMPRESSION: Stable exam with redemonstration of persistent small bowel obstruction. ACT 112: Negative or not required by law. Electronically signed by: Zaid Awad M.D. 02/15/2023 9:00 AM PG Care Time/CCT Total # of Minutes Spent Total Time Spent with Patient: Total time spent is greater than 50% in coordination of care (as documented) at patient's floor/unit and/or counseling patient: Coding Level of Care Code 48877 SUB INP/OBS CARE 3/50MIN Diagnoses Small bowel obstruction K56.609 Incisional hernia without obstruction or gangrene K43.2 Alcohol use disorder F10.90 Hypercalcemia E83.52 Electrolyte abnormality E87.8
[2023-02-15] MEDS: NSS + 20MEQ KCL 20 MEQ/1,000 ML BAG IV SCH (08:51)
--- NOTE | 2023-02-15 09:02 | XRay Report ---
XR KUB/Abdomen 1 view CLINICAL HISTORY: f/u SBO TECHNIQUE: 1 view of the abdomen was obtained. Comparison: Comparison is made to abdomen radiographs 02/14/2013 FINDINGS: Stable endotracheal tube. Degenerative changes are seen in the visualized skeleton. Redemonstration o f gas distended loops of small bowel. Small stool burden is seen. IMPRESSION: Stable exam with redemonstration of persistent small bowel obstruction. ACT 112: Negative or not required by law. Electronically signed by: Zaid Awad M.D. 02/15/2023 9:00 AM
[2023-02-15] MEDS: THIAMINE HCL 100 MG in SYRINGE 9 ML IV SCH (09:03)
[2023-02-15] MEDS: FOLIC ACID 1 MG in SYRINGE 9.8 ML IV SCH (09:03)
--- NOTE | 2023-02-15 09:44 | Surgery Progress Note ---
Date of Service February 15, 2023 Assessment & Plan (1) Small bowel obstruction: Plan: Patient here with concern for SBO NGT in place, still with high output >3L documented over last 24 hours. only taking minimal ice KUB today showed concern for ongoing SBO She feels like she may have some bowel function soon Her pain is mildly improved, but excelsior machine tender in LLQ and epigastric regions Continue bowel rest, NPO/IVF/NGT for now while awaiting return of bowel function Encouraged activity and OOB as able, may clamp NGT to ambulate the [facility] covering the wknd Admission and Anticipated Discharge Date Admission Date: February 13, 2023 Supervising Physician Co-Signing Physician Notes Patient seen and examined, labs and imaging reviewed, agree with above. Patient had high NG tube output and increased pain overnight requiring additional IV pain medication. However this morning between her PA's visit and my visit she has had 2 bowel movements. Her cramping and pain is much better. On exam she is afebrile with stable vitals. Her abdomen is soft, less tender than yesterday, less distended. KUB personally reviewed and agree with the assessment of persistent dilated bowel consistent with small bowel obstruction. Given high NG tube output and persistence of obstruction on x-ray, we will continue the NG tube for now. However given that she has had bowel movements she will likely be able to have this removed tomorrow if everything continues to improve. Dr. Ibanez covering over the weekend Subjective Patient feeling better than yesterday evening. She currently denies any nausea/vomiting. Still having some belly pain, but improved from yesterday evening. Physical Exam Physical Exam: awake/alert, no distress Respiratory: normal respiratory effort Gastrointestinal (Abdomen): Inspection/Auscultation: abdomen not distended Percussion/Palpation: + abdomen tender (discomfort to palpation mostly in epigastric and LLQ regions) and abdomen soft Results & Data Vital Signs (Past 12 Hours) Vital Signs Temp Pulse Resp BP Pulse Ox O2 Del Method 02/15/23 07:55 37.1 C 103 H 18 116/81 96 Room Air 02/15/23 01:11 36.8 C 90 18 119/75 95 Room Air PG Care Time/CCT Total # of Minutes Spent Total Time Spent with Patient: Total time spent is greater than 50% in coordination of care (as documented) at patient's floor/unit and/or counseling patient: Coding Level of Care Code 61819 SUB INP/OBS CARE 09/26MIN Diagnoses Small bowel obstruction K56.609
[2023-02-15] MEDS: FAMOTIDINE 20 MG in SYRINGE 3 ML IV SCH (10:20)
[2023-02-15] MEDS: D5NSS + 20MEQ KCL 20 MEQ/1,000 ML BAG IV SCH ×2 (10:47→20:33)
[2023-02-15] MEDS ORDERED: MAGNESIUM SULFATE / D5W 1 GM/100 ML BAG IV ONE (15:46)
[2023-02-15] MEDS: HEPARIN SOD 5,000 UNIT/0.5 ML VIAL SQ SCH (20:33)
[2023-02-15] MEDS: ACETAMINOPHEN 1,000 MG/100 ML VIAL IV PRN (23:47)
[2023-02-16] MEDS: D5NSS + 20MEQ KCL 20 MEQ/1,000 ML BAG IV SCH ×2 (07:17→19:44)
[2023-02-16 07:54] LABS: Hemoglobin 12.3 g/dl (12.0-16.0); Mean Corpuscular Hemoglobin 34.5 pg (25.0-34.0); Mean Corpuscular Hgb Conc 35.1 g/dL (32.0-36.0); Mean Platelet Volume 9.3 fL (9.4-12.4); Platelet Count 249 K/uL (130-400); RDW Coefficient of Variation 10.8 % (11.5-14.5); RDW Standard Deviation 38.5 fL (36.4-46.3); Red Blood Count 3.57 M/uL (4.20-5.40); White Blood Count 4.93 K/ul (4.8-10.8)
[2023-02-16 08:18] LABS: Albumin Globulin Ratio 1.3 (0.9-2); Albumin Level 3.3 gm/dl (3.4-5.0); BUN Creatinine Ratio 16.7 (10-20); Bilirubin,Total 0.4 mg/dl (0.2-1.0); Calcium 8.9 mg/dl (8.6-10.3); Est GFR (African American) 141.2 ml/min; Est GFR (Non-African American) 121.9 ml/min; Globulin 2.5 gm/dl (2.5-4.0); Magnesium 1.5 mg/dl (1.7-2.4); Potassium 3.4 mmol/L (3.5-5.1); Total Protein 5.8 gm/dl (6.0-8.3)
[2023-02-16] MEDS: THIAMINE HCL 100 MG in SYRINGE 9 ML IV SCH (08:23)
[2023-02-16] MEDS: FOLIC ACID 1 MG in SYRINGE 9.8 ML IV SCH (08:23)
[2023-02-16] MEDS: HEPARIN SOD 5,000 UNIT/0.5 ML VIAL SQ SCH ×2 (08:23→19:45)
[2023-02-16] MEDS: FAMOTIDINE 20 MG in SYRINGE 3 ML IV SCH (08:23)
--- NOTE | 2023-02-16 08:49 | XRay Report ---
KUB CLINICAL HISTORY: Small bowel obstruction. FINDINGS: An AP portable supine abdominal radiograph is compared to study dated 02/15/2023 and correla jayshree with abdominal CT dated 02/13/2023. An enteric tube projects below the diaphragm of the stomach. T here is persistent gaseous distention of small bowel loops. These measure up to 3.1 cm and suggests p ersistent obstruction. No evidence of intraperitoneal free air is seen on this supine image. Suture m aterial projects over the pelvis. There are no abnormal abdominal calcifications. Phleboliths are see n in the pelvis. The skeletal structures are osteopenic and appear intact. There is lumbosacral spond ylosis and scoliosis. IMPRESSION: Persistent small bowel obstruction. Distention of the small bowel loops is unchanged to m odestly improved as compared to yesterday. Electronically signed by: Oh Betancur M.D. 02/16/2023 8:47 AM
[2023-02-16] MEDS ORDERED: ACETAMINOPHEN 1,000 MG/100 ML VIAL IV PRN (09:06)
--- NOTE | 2023-02-16 09:47 | Surgery Progress Note ---
Date of Service February 16, 2023 Assessment & Plan (1) Small bowel obstruction: Plan: slow improvement ngt still bilious will con't ngt at least till tomorrow KUB c/w SBO, slightly improved ambulate Present on Admission?: Yes Admission and Anticipated Discharge Date Admission Date: February 13, 2023 Subjective passing flatus some liquid BM yesterday, no further BMs ambulating feels OK NGT is bilious and down to 850cc/24hrs Review of Systems Constitutional: no fever and no chills Respiratory: no cough and no dyspnea Cardiovascular: no chest pain Gastrointestinal: + change in bowel habits; no abdominal pain, no nausea and no vomiting Genitourinary: no dysuria Musculoskeletal: no back pain Integumentary: no problem reported Neurologic: no localized weakness and no generalized weakness Psychiatric: no behavioral changes Physical Exam Constitutional: WD/WN, vitals as above Eyes: PERRL, conjunctivae normal, anicteric sclerae ENMT: external ear and nose normal, oropharynx normal Neck: trachea midline Respiratory: normal respiratory effort, lungs clear to auscultation Cardiovascular: RRR, no murmur, no edema Gastrointestinal (Abdomen): Inspection/Auscultation: + abdomen distended (mild) and normal bowel sounds Percussion/Palpation: abdomen soft; abdomen nontender, no guarding and abdomen not rigid Musculoskeletal: Head/Neck/Chest: normocephalic and head atraumatic Skin: no rashes, warm and dry Psychiatric: Orientation: alert and oriented x 3 Results & Data Vital Signs (Past 12 Hours) Vital Signs Temp Pulse Resp BP BP Pulse Ox O2 Del Method 02/16/23 07:13 36.8 C 75 18 156/91 H 99 Room Air 02/16/23 00:00 36.9 C 76 16 128/74 97 Room Air Diagnostic Findings KUB CLINICAL HISTORY: Small bowel obstruction. FINDINGS: An AP portable supine abdominal radiograph is compared to study dated 02/15/2023 and correlated with abdominal CT dated 02/13/2023. An enteric tube projects below the diaphragm of the stomach. There is persistent gaseous distention of small bowel loops. These measure up to 3.1 cm and suggests persistent obstruction. No evidence of intraperitoneal free air is seen on this supine image. Suture material projects over the pelvis. There are no abnormal abdominal calcifications. Phleboliths are seen in the pelvis. The skeletal structures are osteopenic and appear intact. There is lumbosacral spondylosis and scoliosis. IMPRESSION: Persistent small bowel obstruction. Distention of the small bowel loops is unchanged to modestly improved as compared to yesterday.
[2023-02-16] MEDS: MAGNESIUM SULFATE / D5W 1 GM/100 ML BAG IV SCH ×2 (13:55→15:44)
--- NOTE | 2023-02-16 15:25 | Hospitalist Progress Note ---
Date of Service February 16, 2023 Assessment & Plan (1) Small bowel obstruction: Plan: Appreciate surgery consultation and recommendations. Continue n.p.o. status. NG tube to intermittent low wall suction. IV fluids. (2) Alcohol use disorder: Plan: Supportive care. No evidence of withdrawal symptoms at this time (3) Osteopenia: Plan: Calcium supplementation and vitamin D (4) Diverticulosis: Plan: Past history of perforated diverticulitis requiring surgical intervention Plan Eventual discharge to home Admission and Anticipated Discharge Date Admission Date: February 13, 2023 Subjective KUB today, February 16, continues to show bowel obstruction. She did say that she had a bowel movement however. Surgery entry noted. We will keep n.p.o. for now. Magnesium replacement ordered. She is receiving potassium in the IV fluids. Review of Systems Review of Systems: Constitutional-no fever or chills ENT-no blurred vision, no double vision, no epistaxis, no sore throat Respiratory-no cough, no wheezing, no shortness of breath Cardiac-no palpitations, no chest pain, no syncope GI-no nausea, vomiting, diarrhea, melena, hematochezia -no urinary retention, no urinary incontinence, no dysuria, no hematuria Musculoskeletal-no joint pain, no muscle tenderness Skin-no bruising, no rashes, no pruritus Neuro-no isolated weakness, no paresthesia, no weakness Psych-no depression, no anxiety Physical Exam Physical Exam: General-alert and oriented x3, no fevers, no chills HEENT-head atraumatic and normocephalic, NG tube in place, pupils equal and reactive to light, extraocular muscles intact Neck-no lymphadenopathy or thyromegaly, trachea midline Chest-clear to auscultation percussion. No rales wheezing or rhonchi Cardiac-regular rate and rhythm, normal S1 and S2, no murmurs Abdomen-nondistended. Hypoactive bowel sounds. No tenderness or masses Extremities-no cyanosis, clubbing, or edema Neuro-cranial nerves II through XII intact, motor and sensory function within normal limits, strength symmetrical , no focal deficits Psych-normal affect, normal mood Results & Data Results & Data Vital Signs (Past 12 Hours) Vital Signs Temp Pulse Resp BP Pulse Ox O2 Del Method 02/16/23 07:13 36.8 C 75 18 156/91 H 99 Room Air Laboratory Results 02/16/23 07:24 02/16/23 07:24 PG Care Time/CCT Total # of Minutes Spent Total Time Spent with Patient: Total time spent is greater than 50% in coordination of care (as documented) at patient's floor/unit and/or counseling patient: Coding Level of Care Code 79679 SUB INP/OBS CARE 3/50MIN Diagnoses Small bowel obstruction K56.609 Alcohol use disorder F10.90 Osteopenia M85.80 Diverticulosis K57.90
[2023-02-16] MEDS: LORazepam 0.5 MG TAB SL PRN (19:58)
[2023-02-17] MEDS ORDERED: diphenhydrAMINE 50 MG/ML VIAL IV STA ×2 (00:14→21:28)
[2023-02-17] MEDS: D5NSS + 20MEQ KCL 20 MEQ/1,000 ML BAG IV SCH ×2 (07:04→21:56)
[2023-02-17 07:28] LABS: Basophils # (auto) 0.02 K/uL (0-0.2); Basophils % (auto) 0.4 %; Eosinophils # (auto) 0.07 K/uL (0-0.50); Eosinophils % (auto) 1.4 %; Hematocrit (blood only) 32.7 % (37.0-47.0); Hemoglobin 11.6 g/dl (12.0-16.0); Immature Granulocytes # (auto) 0.03 K/uL (0.01-0.20); Immature Granulocytes % (auto) 0.6 %; Lymphocytes # (auto) 1.57 K/uL (1.2-3.4); Lymphocytes % (auto) 31.3 %; Mean Corpuscular Hemoglobin 33.6 pg (25.0-34.0); Mean Corpuscular Hgb Conc 35.5 g/dL (32.0-36.0); Mean Corpuscular Volume 94.8 fL (80.0-100.0); Mean Platelet Volume 9.3 fL (9.4-12.4); Monocytes # (auto) 0.57 K/uL (0.11-0.59); Monocytes % (auto) 11.4 %; Neutrophils # (auto) 2.75 K/uL (1.40-6.50); Neutrophils % (auto) 54.9 %; Platelet Count 239 K/uL (130-400); RDW Coefficient of Variation 10.9 % (11.5-14.5); RDW Standard Deviation 37.7 fL (36.4-46.3); Red Blood Count 3.45 M/uL (4.20-5.40); White Blood Count 5.01 K/ul (4.8-10.8)
[2023-02-17 07:52] LABS: Anion Gap 4 (3-11); Calcium 9.1 mg/dl (8.6-10.3); Carbon Dioxide 28 mmol/L (21-32); Chloride 110 mmol/L (98-107); Creatinine Clr Calc Pharmacy 139.7 ml/min; Est GFR (African American) 134.2 ml/min; Est GFR (Non-African American) 115.8 ml/min; Glucose 104 mg/dl (70-99(Fasting)); Magnesium 1.6 mg/dl (1.7-2.4); Potassium 3.5 mmol/L (3.5-5.1); Sodium 142 mmol/L (136-145)
[2023-02-17 08:09] LABS: Blood Urea Nitrogen < 2 mg/dl (6-23)
[2023-02-17] MEDS: FAMOTIDINE 20 MG in SYRINGE 3 ML IV SCH (08:58)
[2023-02-17] MEDS: FOLIC ACID 1 MG in SYRINGE 9.8 ML IV SCH (08:58)
[2023-02-17] MEDS: THIAMINE HCL 100 MG in SYRINGE 9 ML IV SCH (08:58)
[2023-02-17] MEDS: HEPARIN SOD 5,000 UNIT/0.5 ML VIAL SQ SCH ×2 (08:58→19:42)
--- NOTE | 2023-02-17 10:04 | Surgery Progress Note ---
Date of Service February 17, 2023 Assessment & Plan (1) Small bowel obstruction: Plan: feeling better passing flatus no N/V will remove NGT clears sparingly Present on Admission?: Yes Admission and Anticipated Discharge Date Admission Date: February 13, 2023 Subjective NG clamped without N/V passing flatus hungry Review of Systems Constitutional: no fever and no chills Respiratory: no cough and no dyspnea Cardiovascular: no chest pain Gastrointestinal: no abdominal pain, no nausea and no vomiting Genitourinary: no dysuria Musculoskeletal: no back pain Neurologic: no localized weakness and no generalized weakness Psychiatric: no behavioral changes Physical Exam Constitutional: WD/WN, vitals as above Eyes: PERRL, conjunctivae normal, anicteric sclerae Respiratory: normal respiratory effort, lungs clear to auscultation Cardiovascular: RRR, no murmur, no edema Gastrointestinal (Abdomen): Inspection/Auscultation: abdomen normal to inspection and normal bowel sounds; abdomen not distended Percussion/Palpation: abdomen soft; abdomen nontender, no guarding and abdomen not rigid Musculoskeletal: Head/Neck/Chest: normocephalic and head atraumatic Psychiatric: Orientation: alert and oriented x 3 Results & Data Vital Signs (Past 12 Hours) Vital Signs Temp Pulse Resp BP Pulse Ox O2 Del Method 02/17/23 06:58 36.9 C 81 18 134/88 96 Room Air 02/16/23 23:59 36.7 C 80 18 142/88 H 97 Room Air
[2023-02-17] MEDS: MAGNESIUM SULFATE / D5W 1 GM/100 ML BAG IV SCH ×2 (10:40→12:41)
--- NOTE | 2023-02-17 14:52 | Hospitalist Progress Note ---
Date of Service February 17, 2023 Assessment & Plan (1) Small bowel obstruction: Plan: Appreciate surgery consultation and recommendations. NG tube has been removed. Now on clear liquids. Will advance as tolerated. IV fluids have been tapered down (2) Alcohol use disorder: Plan: Supportive care. No evidence of withdrawal symptoms at this time (3) Osteopenia: Plan: Calcium supplementation and vitamin D (4) Diverticulosis: Plan: Past history of perforated diverticulitis requiring surgical intervention Plan Eventual discharge to home. Hopefully tomorrow, February 18 Admission and Anticipated Discharge Date Admission Date: February 13, 2023 Subjective Alert and oriented. NG tube has been removed. She is now on clear liquids. This will be advanced as tolerated. Hopefully she can go home tomorrow, February 18 Review of Systems Review of Systems: Constitutional-no fever or chills ENT-no blurred vision, no double vision, no epistaxis, no sore throat Respiratory-no cough, no wheezing, no shortness of breath Cardiac-no palpitations, no chest pain, no syncope GI-no nausea, vomiting, diarrhea, melena, hematochezia -no urinary retention, no urinary incontinence, no dysuria, no hematuria Musculoskeletal-no joint pain, no muscle tenderness Skin-no bruising, no rashes, no pruritus Neuro-no isolated weakness, no paresthesia, no weakness Psych-no depression, no anxiety Physical Exam Physical Exam: General-alert and oriented x3, no fevers, no chills HEENT-head atraumatic and normocephalic, NG tube in place, pupils equal and reactive to light, extraocular muscles intact Neck-no lymphadenopathy or thyromegaly, trachea midline Chest-clear to auscultation percussion. No rales wheezing or rhonchi Cardiac-regular rate and rhythm, normal S1 and S2, no murmurs Abdomen-nondistended. Hypoactive bowel sounds. No tenderness or masses Extremities-no cyanosis, clubbing, or edema Neuro-cranial nerves II through XII intact, motor and sensory function within normal limits, strength symmetrical , no focal deficits Psych-normal affect, normal mood Results & Data Results & Data Vital Signs (Past 12 Hours) Vital Signs Temp Pulse Resp BP Pulse Ox O2 Del Method 02/17/23 06:58 36.9 C 81 18 134/88 96 Room Air Laboratory Results 02/17/23 07:05 02/17/23 07:05 PG Care Time/CCT Total # of Minutes Spent Total Time Spent with Patient: Total time spent is greater than 50% in coordination of care (as documented) at patient's floor/unit and/or counseling patient: Coding Level of Care Code 63746 SUB INP/OBS CARE 2/35MIN Diagnoses Small bowel obstruction K56.609 Alcohol use disorder F10.90 Osteopenia M85.80 Diverticulosis K57.90
[2023-02-18] MEDS: LORazepam 0.5 MG TAB SL PRN (04:02)
[2023-02-18 06:54] LABS: Basophils # (auto) 0.03 K/uL (0-0.2); Basophils % (auto) 0.6 %; Eosinophils # (auto) 0.08 K/uL (0-0.50); Eosinophils % (auto) 1.5 %; Immature Granulocytes # (auto) 0.03 K/uL (0.01-0.20); Immature Granulocytes % (auto) 0.6 %; Lymphocytes % (auto) 31.8 %; Mean Corpuscular Hemoglobin 33.7 pg (25.0-34.0); Mean Corpuscular Hgb Conc 34.4 g/dL (32.0-36.0); Mean Corpuscular Volume 98.2 fL (80.0-100.0); Mean Platelet Volume 9.7 fL (9.4-12.4); Monocytes # (auto) 0.61 K/uL (0.11-0.59); Monocytes % (auto) 11.4 %; Neutrophils # (auto) 2.89 K/uL (1.40-6.50); Neutrophils % (auto) 54.1 %; Platelet Count 224 K/uL (130-400); RDW Coefficient of Variation 10.9 % (11.5-14.5); RDW Standard Deviation 39.1 fL (36.4-46.3); Red Blood Count 3.26 M/uL (4.20-5.40); White Blood Count 5.34 K/ul (4.8-10.8)
[2023-02-18 07:19] LABS: BUN Creatinine Ratio 5.1 (10-20); Calcium 9.1 mg/dl (8.6-10.3); Creatinine Clr Calc Pharmacy 125.4 ml/min; Est GFR (African American) 129.6 ml/min; Est GFR (Non-African American) 111.8 ml/min; Magnesium 1.6 mg/dl (1.7-2.4); Potassium 3.7 mmol/L (3.5-5.1)
[2023-02-18] MEDS: THIAMINE HCL 100 MG in SYRINGE 9 ML IV SCH (08:35)
[2023-02-18] MEDS: HEPARIN SOD 5,000 UNIT/0.5 ML VIAL SQ SCH (08:37)
[2023-02-18] MEDS: FOLIC ACID 1 MG in SYRINGE 9.8 ML IV SCH (08:39)
[2023-02-18] MEDS ORDERED: MAGNESIUM OXIDE 400 MG TAB PO SCH (09:00)
[2023-02-18] MEDS: FAMOTIDINE 20 MG in SYRINGE 3 ML IV SCH (09:07)
--- NOTE | 2023-02-18 10:26 | Surgery Progress Note ---
Date of Service February 18, 2023 Assessment & Plan (1) Small bowel obstruction: Plan: Patient here with concern for SBO NGT was removed over the weekend and diet has been slowly advanced, on full liquids currently She denies any pain/n/v. Having + flatus and liquid BMs thus far On exam abd is soft and non tender Will advance to low fiber, if tolerates possible discharge from our standpoint later today Admission and Anticipated Discharge Date Admission Date: February 13, 2023 Supervising Physician Co-Signing Physician Notes Patient seen and examined, labs reviewed, agree with above. Resolving SBO, tolerated liquids yesterday, was advanced this morning to low fiber and is tolerating well. No pain. Plan to discharge to home. Follow-up with Dr. Logan to discuss elective ventral hernia repairs in the future Subjective Patient reports doing well. She denies any abdominal pain, nausea/vomiting. She is passing flatus and having liquid BM's. Tolerating liquids thus far. Physical Exam Physical Exam: awake/alert, no distress Gastrointestinal (Abdomen): Inspection/Auscultation: abdomen not distended Percussion/Palpation: abdomen soft; abdomen nontender Results & Data Vital Signs (Past 12 Hours) Vital Signs Temp Pulse Resp BP Pulse Ox O2 Del Method 02/18/23 07:12 36.8 C 64 18 116/76 98 Room Air 02/17/23 22:26 36.5 C 72 16 116/75 96 Room Air PG Care Time/CCT Total # of Minutes Spent Total Time Spent with Patient: Total time spent is greater than 50% in coordination of care (as documented) at patient's floor/unit and/or counseling patient: Coding Level of Care Code 45163 SUB INP/OBS CARE 09/26MIN Diagnoses Small bowel obstruction K56.609
--- NOTE | 2023-02-18 12:18 | Discharge Summary ---
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 Denies fevers, emesis, chest pain, SOB. Reports that pancreatitis in the past that felt similar, and since the pain was worsening she proceeded to the ER. She notes a small BM yesterday, nonbloody. In the ER patient was noted to have a normal WBC count to 9.77, corrected calcium 10.1, T. bili 1.1 (chronic), normal LFTs, normal lipase and amylase. Urinalysis not suggestive of infection. CTAP with evidence of partial small bowel obstruction. Patient was made n.p.o. and given IV pain medications. Hospitalist service was consulted for evaluation and management of small bowel obstruction and pain control for such. Principal Diagnosis Small bowel obstruction Discharge Exam General-alert and oriented x3, no fevers, no chills HEENT-head atraumatic and normocephalic, NG tube in place, pupils equal and reactive to light, extraocular muscles intact Neck-no lymphadenopathy or thyromegaly, trachea midline Chest-clear to auscultation percussion. No rales wheezing or rhonchi Cardiac-regular rate and rhythm, normal S1 and S2, no murmurs Abdomen-nondistended. Hypoactive bowel sounds. No tenderness or masses Extremities-no cyanosis, clubbing, or edema Neuro-cranial nerves II through XII intact, motor and sensory function within normal limits, strength symmetrical , no focal deficits Psych-normal affect, normal mood Discharge Data Allergies Allergy/AdvReac Type Severity Reaction Status Date / Time No Known Allergies Allergy Verified 01/17/23 09:03 Consultations 02/13/23 05:28 ED Decision to Admit Stat 02/13/23 08:32 Consult General Surgery Routine Ordered Studies 02/13/23 02:33 CT abd pelvis IV con only Stat Hospital Course (1) Small bowel obstruction: Appreciate surgery consultation and recommendations. NG tube has been removed. Diet has been advanced. IV fluids have been discontinued. She is doing well and will be discharged home today, February 18 (2) Alcohol use disorder: Supportive care. No evidence of withdrawal symptoms at this time (3) Osteopenia: Calcium supplementation and vitamin D (4) Diverticulosis: Past history of perforated diverticulitis requiring surgical intervention Plan Home today, February 18 Total Time Total Time Spent Total Time Spent (In Minutes): 40 minutes Discharge Plan Discharge Items Patient Disposition: Home - Self-Care Reason For Visit: SBO Discharge Diagnosis: Small bowel obstruction Condition on Discharge: Good Activity: Resume your previous activity Non-emergency contact: Primary Care Provider Call non-emergency contact if: your symptoms worsen Follow-up/Referrals: Teagan Deshpande MD [Primary Care Provider] - Diet: Regular Addtl Attending Provider Instructions: Follow-up with your primary care provider as directed. Daily magnesium has been ordered. Off work until further notice Pending Studies at Discharge: No Stand-Alone Forms: [employer], Work/School Release, Smoking Cessation Medications and DC Order Prescriptions: New magnesium oxide 400 mg (241.3 mg magnesium) Tablet 400 mg PO QAM Qty: 30 0RF Continued thiamine HCl (vitamin B1) 100 mg tablet 100 mg PO DAILY Qty: 30 0RF acetaminophen [Tylenol Extra Strength] 500 mg Tablet 1,000 mg PO Q6H PRN (Reason: Pain) multivitamin Tablet 1 tab PO PM cholecalciferol (vitamin D3) [Vitamin D3] 25 mcg (1,000 unit) Capsule 1,000 unit PO QAM Probiotic 3 billion cell Capsule 3,000 mmu cells PO QAM Discharge Orders: Discharge Order (Routine); Ordered 02/18/23 Ordered By: Fredy Barrera Admission Data Admit Date/Time: 02/13/23 05:34 Attending Provider: Fredy Barrera Admit Provider: Ava Peralta Primary Care Provider: Teagan Deshpande Other Providers: Ava Peralta ; Jessee Orozco Coding Level of Care Code 58690 INP/OBS DISCH >30 MIN Diagnoses Small bowel obstruction K56.609 Alcohol use disorder F10.90 Osteopenia M85.80 Diverticulosis K57.90
== END 2023-02-18 13:15 | disposition home or self-care (01) | DRG 390 ==
LOC: ED 02:14 → 3W 05:34 → SUATTDRO 05:34 → 3W 08:22